=== PATIENT | male | born 1965 | race Caucasian/White ===

== ENCOUNTER 2017-07-27 13:07 | Inpatient (IN) | payer OTHER, SELFPAY ==
[2017-07-27] VITALS (13 sets, daily range): BP systolic 162–197; BP diastolic 90–133; PULSE 62–87; RESP 14–22; TEMP 36.6–37; O2SAT 94–98; BMI 48.2; BMI 48.3; BMI 47.9
--- NOTE | 2017-07-27 13:43 | EKG12_ITS ---
Test Reason : NEURO S
--- NOTE | 2017-07-27 13:43 | CT_ITS ---
STUDY: CT BRAIN WITHOUT CONTRAST REASON FOR EXAM: Male, 52 years old. Slurred speech. Right facial redness. RADIATION DOSAGE (If Supplied By Facility): CTDIvol = ( 44.99 ) mGy, DLP = ( 779.24 ) mGycm TECHNIQUE: Transaxial CT imaging of the brain was performed without administration of intravenous contrast material. Individualized dose optimization techniques were used for this CT. COMPARISON: Comparison is made with prior study dated December 09, 2014. FINDINGS: Normal soft tissue structures. Normal calvarium. Normal size ventricles and extra-axial spaces for the patient's age. Normal white matter tracts of the cerebral hemispheres. Normal basal ganglia and thalami. Normal brainstem. Normal cerebellum. There is no intracranial hemorrhage. There are no findings of an acute ischemic infarction. There is dolichoectasia of the basilar artery more prominent on the left side. Can't rule out a basilar tip aneurysm. Correlation with MR is recommended. Normal visualized paranasal sinuses. 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 MRI is recommended. Electronically Signed: Mu Butcher MD at 14:36 EDT Tel [phone], Service support ,
--- NOTE | 2017-07-27 13:43 | RAD_ITS ---
STUDY: X-RAY CHEST REASON FOR EXAM: Male, 52 years old. Slurred speech. Cough. TECHNIQUE: Single AP portable view of the chest. COMPARISON: Comparison is made with prior examination dated December 09, 2014. FINDINGS: EKG electrodes are seen. The lungs are clear and expanded. There is no demonstrated pleural abnormality. Normal size heart. Normal mediastinum and maegan. Normal visualized pulmonary arteries. There is atherosclerotic tortuosity of the aortic arch and descending thoracic aorta. Normal visualized thoracic spine. Normal visualized ribs, clavicles, and shoulders. There is no demonstrated abnormality of the visualized soft tissue structures of the upper abdomen. RAD/Chest 1 View IMPRESSION: No acute abnormality is seen. Electronically Signed: Mu Butcher MD at 14:41 EDT Tel [phone], Service support ,
--- NOTE | 2017-07-27 13:48 | NURSING ---
NO OLD EKGS
[2017-07-27 14:04] LABS: Absolute Lymphocyte Count 1.17 X10^3/ul (0.83-4.51); Absolute Neutrophil Count 4.6 X10^3/uL (2.0-7.7); Basophil# 0.02 X10^3/uL; Basophil% 0.3 % (0-1); Eosinophil# 0.52 X10^3/uL; Eosinophils% 7.8 % (0-5); Hematocrit 44.1 % (40-54); Hemoglobin 14.5 g/dl (13.0-16.5); Lymphocyte # 1.17 X10^3/ul (4.0); Lymphocyte % 17.5 % (19-41); Mean Corp Hgb Conc 32.9 g/gl (32-36); Mean Corpuscular Hgb 28.5 pg (27.0-32.0); Mean Corpuscular Volume 86.6 fL (80-94); Mean Platelet Vol. 8.3 fl (6.2-12.0); Neutrophil # 4.58 X10^3/uL (2.7-7.7); Neutrophil % 68.4 % (47-70); Platelet Count 212 K/mm3 (150-450); RBC Distribution Width CV 13.5 % (11.6-14.6); RBC Distribution Width SD 42.6 fl (35.1-43.9); Red Blood Count 5.09 M/mm3 (4.6-6.2); White Blood Count 6.7 K/mm3 (4.4-11.0)
[2017-07-27 14:05] LABS: POSITIVE COUNT NO; POSITIVE DIFFERENTIAL NO; POSITIVE MORPHOLOGY NO
[2017-07-27 14:11] LABS: Prothrombin Time (Protime)PT. 12.9 SECONDS (11.7-14.9)
[2017-07-27 14:12] LABS: Partial Thromboplast Time 30.9 Seconds (24.1-36.2)
[2017-07-27 14:21] LABS: Anion Gap 7 (5-15); BUN 15 mg/dL (7-18); BUN/Creat Ratio 18.5 RATIO (10-20); Calcium,Total 7.8 mg/dL (8.5-10.1); Chloride 107 mmol/L (98-107); Creatinine, Serum 0.81 mg/dL (0.70-1.30); EST Glomerular Filtration Rate 107 mL/min (>60); Est Glom Filt Rate - Afr Amer 129 mL/min (>60); Estimated Creatinine Clearance 94.91 ml/min; Glucose 173 mg/dL (74-106); Potassium 3.7 mmol/L (3.5-5.1); Sodium Level 142 mmol/L (136-145)
--- NOTE | 2017-07-27 14:56 | NURSING ---
DR QUINTERO PAGED
--- NOTE | 2017-07-27 15:28 | ED.DCSUM_ITS ---
- ER Visit Summary Date of Service: 07/27/17 Chief Complaint: Slurred speech History of Present Illness: The patient is a 52 M who presents with slurred speech. He initially noticed it about 6 hours prior to presentation. His and stated that he also appeared flushed and that his eyes were bloodshot he complains of feeling dizzy and off-balance. No near syncope. No weakness numbness or tingling. He complains of mild headache. No fevers no vomiting. Physical Examination: Afebrile vitals are notable for blood pressure 196/133 Moist mucous membranes Heart regular rate and rhythm Lungs are clear Abdomen soft NIH stroke scale is 1 for dysarthria no lateralizing neurological deficits Alert and oriented Test Results: EKG shows normal sinus rhythm at a rate of 81. CBC BMP unremarkable. Troponin negative. INR normal. Chest x-ray shows no acute abnormality. 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 Emergency Department Course and Treatment: On reevaluation patient continues to have dysarthria but denies any pain. He is resting comfortably. I did speak to neurology regarding his CT findings. It is recommended that the patient undergo further workup including MRI. The patient's symptoms are not suggestive of subarachnoid hemorrhage. He was discussed with the hospitalist will be admitted. Treatment Plan: [] Disposition: Admit Impression: Slurred speech Dizziness This note was generated with [employer] dictation software. It may contain incorrect words, spelling, and punctuation that were not noted in review of the chart prior to signing ED Disposition - Plan for ED Patient: Chief Complaint: Neuro S/Sx Referrals: Thais Fox MD [Primary Care Provider] -
[2017-07-27] MEDS: Labetalol 100 MG/20 ML Vial 20 MG IV (15:47)
--- NOTE | 2017-07-27 15:57 | PCM.HP.STD ---
Problem List (1) CVA (cerebral vascular accident) Status: Acute (2) Hypertension Status: Chronic (3) Morbid obesity with BMI of 45.0-49.9, adult Status: Chronic (4) Sleep apnea Status: Chronic Comment: On BiPAP at night 04/04 (5) Coronary artery disease Status: Chronic Comment: Status post PTCA and stents ?4, last in 2011 History of Present Illness Date of Admission: 07/27/17 Chief Complaint: slurred speech The patient is a 52 year old M who is normal state of health up until last evening where he was experiencing a right-sided headache with the ear pain and felt that his legs were wobbly. This morning he awoke with slurred speech that his describes as speech that she would anticipate if the patient were on an all night salazar. Of note, patient has not consumed alcohol in several years. Patient's speech has gotten better but still slurred according to his . Patient's stated weakness in the leg is resolved. Patient still does have the headache is right jaw and ear but improved. Never had any symptoms like this before. Presented to the emergency room and underwent a head CT that showed no acute process. Patient was concern for stroke but only had an NIH score of 1 and his time of onset of symptoms was unknown so patient was not a candidate for TPA. [] Past Medical History Past Medical History (Chronic Problems): Chronic Problems Hypertension (Chronic) Morbid obesity with BMI of 45.0-49.9, adult (Chronic) Sleep apnea (Chronic) On BiPAP at night 04/04 Coronary artery disease (Chronic) Status post PTCA and stents ?4, last in 2011 Allergies abciximab [From Reopro] Allergy (Verified 07/27/17 13:11) SEVERE THROMBOCYTOPENIA Home Medications: Ambulatory Orders Medication Instructions Recorded Amlodipine [Norvasc] 10 mg PO BID 07/27/17 Metoprolol Tartrate [Lopressor 100 mg PO BID 07/27/17 (Beta Jaleel)] Smoking Status: Former smoker Tobacco Use: Cigarettes - *Family History Maternal History Items: No pertinent history, - - No stroke Review of Systems Constitutional: Denies: Chills, Fever, Weight Change Eyes: Reports: - - glasses. Denies: Blurred vision, Double vision HEENT: Denies: Head Aches, Sinus Congestion, Sinus Drainage Cardiovascular: Denies: Chest Pain, Palpitations Respiratory: Denies: Cough, Shortness of breath at rest, Sputum production Gastrointestinal: Denies: Abdominal Pain, Nausea, Vomiting Genitourinary: Denies: Dysuria Musculoskeletal: Denies: Joint Pain, Joint Tenderness Skin: Denies: Rash, Wounds Neurological: Reports: Slurred speech. Denies: Focal weakness, Numbness, Tingling Psychiatric: Denies: Anxiety, Depression Endocrine: Denies: Change in Body Habitus, Heat/ Cold Intolerance Hematologic/ Lymphatic: Denies: Easy Bruising, Easy Bleeding, Hx of blood clot VTE Information - Inpt Only VTE Present on Admission: No VTE Pharm Prophylaxis ordered?: Yes Patient Problems: Active and Suspected Problems CVA (cerebral vascular accident) (Acute) - Physical Exam General: Alert, Cooperative, No apparent distress HEENT: Atraumatic, PERRLA, EOMI, Normocephalic Oral: Moist Mucosa, No Gingival or Mucosal Lesions/ Ulcerations Neck: No Nodes, Thyroid Normal Size and Texture Lungs: Clear to auscultation, Normal air movement, No rhonchi, No wheeze Cardiovascular: Regular rate, Regular Rhythm, Normal S1, Normal S2, No murmurs Abdomen: Bowel Sounds Present, Soft, Non Tender, Non-Distended, No Hepato-splenomegaly Extremities: No edema, No Calf Tenderness Skin: No rashes, No breakdown Musculoskeletal: No Tenderness to Palpation of Joints or Extremities, No Muscle Wasting Neurological: Cranial nerves II-XII grossly intact, Deep Tendon Reflexes 2+/4 and Symmetrical, Neuro grossly intact, Motor Exam 5/5 strength throughout, Muscle tone normal, Sensory exam intact to light touch and pain, Coordination normal Psych/Mental Status: Normal Affect, Appropriate Vital Signs Temp Pulse Resp BP Pulse Ox 36.9 C 69 16 189/121 H 97 07/27/17 13:08 07/27/17 15:50 07/27/17 15:50 07/27/17 15:50 07/27/17 15:50 Oxygen Delivery Method Room Air Weight: 131.542 kg Body Mass Index (BMI) 48.2 Finger Stick Blood Glucose 173 Laboratory Tests Past 24 Hrs 07/27/17 07/27/17 07/27/17 13:57 13:57 13:57 WBC 6.7 RBC 5.09 Hgb 14.5 Hct 44.1 MCV 86.6 MCH 28.5 MCHC 32.9 RDW 13.5 RDW Differential 42.6 Plt Count 212 MPV 8.3 Immature Gran % (Auto) 0.000 Neut % (Auto) 68.4 Lymph % (Auto) 17.5 L [place] % (Auto) 6.0 Eos % (Auto) 7.8 H Baso % (Auto) 0.3 Absolute Neuts (auto) 4.6 Absolute Lymphs (auto) 1.17 Total Counted Not Reportable PT 12.9 INR 1.0 APTT 30.9 Sodium 142 Potassium 3.7 Chloride 107 Carbon Dioxide 28.0 Anion Gap 7 BUN 15 Creatinine 0.81 Estim Creat Clear Calc 94.91 Est GFR (MDRD) Af Amer 129 Est GFR (MDRD) Non-Af 107 BUN/Creatinine Ratio 18.5 Glucose 173 H Calcium 7.8 L Troponin I < 0.02 Clinical Impression(s) from Imaging Studies Brain CT 07/27/17 13:43 IMPRESSION: 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 MRI is recommended. Electronically Signed: Mu Butcher MD at 14:36 EDT Tel [phone], Service support , Chest X-Ray 07/27/17 13:43 IMPRESSION: No acute abnormality is seen. Electronically Signed: Mu Butcher MD at 14:41 EDT Tel [phone], Service support , EEG reviewed and showed normal sinus rhythm without any acute changes. Assessment/Plan Active and Suspected Problems CVA (cerebral vascular accident) (Acute) 1. Possible cerebrovascular accident With risk factors given his symptoms. Patient's NIH is only one for slurred speech but his speech is very intelligible at this time Will start the patient on aspirin Complete a stroke workup with an MRI of the brain, MRA of the head neck, echocardiogram, physical and occupational therapy evaluate and treat, bedside swallow evaluation, and neurology consultation. The possibilities for his symptoms could be an atypical migraine but given patient's lack of history of migraines I would find this to be less likely. 2. Coronary artery disease: Continue with metoprolol 3. DVT prophylaxis with Lovenox Code Visit Inpatient E&M: 06152 Init Hosp L3
--- NOTE | 2017-07-27 16:03 | HP.PCM_ITS ---
Problem List (1) CVA (cerebral vascular accident) Status: Acute (2) Hypertension Status: Chronic (3) Morbid obesity with BMI of 45.0-49.9, adult Status: Chronic (4) Sleep apnea Status: Chronic Comment: On BiPAP at night 04/04 (5) Coronary artery disease Status: Chronic Comment: Status post PTCA and stents ?4, last in 2011 History of Present Illness Date of Admission: 07/27/17 Chief Complaint: slurred speech The patient is a 52 year old M who is normal state of health up until last evening where he was experiencing a right-sided headache with the ear pain and felt that his legs were wobbly. This morning he awoke with slurred speech that his describes as speech that she would anticipate if the patient were on an all night salazar. Of note, patient has not consumed alcohol in several years. Patient's speech has gotten better but still slurred according to his . Patient's stated weakness in the leg is resolved. Patient still does have the headache is right jaw and ear but improved. Never had any symptoms like this before. Presented to the emergency room and underwent a head CT that showed no acute process. Patient was concern for stroke but only had an NIH score of 1 and his time of onset of symptoms was unknown so patient was not a candidate for TPA. [] Past Medical History Past Medical History (Chronic Problems): Chronic Problems Hypertension (Chronic) Morbid obesity with BMI of 45.0-49.9, adult (Chronic) Sleep apnea (Chronic) On BiPAP at night 04/04 Coronary artery disease (Chronic) Status post PTCA and stents ?4, last in 2011 Allergies abciximab [From Reopro] Allergy (Verified 07/27/17 13:11) SEVERE THROMBOCYTOPENIA Home Medications: Ambulatory Orders Medication Instructions Recorded Amlodipine [Norvasc] 10 mg PO BID 07/27/17 Metoprolol Tartrate [Lopressor 100 mg PO BID 07/27/17 (Beta Jaleel)] Smoking Status: Former smoker Tobacco Use: Cigarettes - *Family History Maternal History Items: No pertinent history, - - No stroke Review of Systems Constitutional: Denies: Chills, Fever, Weight Change Eyes: Reports: - - glasses. Denies: Blurred vision, Double vision HEENT: Denies: Head Aches, Sinus Congestion, Sinus Drainage Cardiovascular: Denies: Chest Pain, Palpitations Respiratory: Denies: Cough, Shortness of breath at rest, Sputum production Gastrointestinal: Denies: Abdominal Pain, Nausea, Vomiting Genitourinary: Denies: Dysuria Musculoskeletal: Denies: Joint Pain, Joint Tenderness Skin: Denies: Rash, Wounds Neurological: Reports: Slurred speech. Denies: Focal weakness, Numbness, Tingling Psychiatric: Denies: Anxiety, Depression Endocrine: Denies: Change in Body Habitus, Heat/ Cold Intolerance Hematologic/ Lymphatic: Denies: Easy Bruising, Easy Bleeding, Hx of blood clot VTE Information - Inpt Only VTE Present on Admission: No VTE Pharm Prophylaxis ordered?: Yes Patient Problems: Active and Suspected Problems CVA (cerebral vascular accident) (Acute) - Physical Exam General: Alert, Cooperative, No apparent distress HEENT: Atraumatic, PERRLA, EOMI, Normocephalic Oral: Moist Mucosa, No Gingival or Mucosal Lesions/ Ulcerations Neck: No Nodes, Thyroid Normal Size and Texture Lungs: Clear to auscultation, Normal air movement, No rhonchi, No wheeze Cardiovascular: Regular rate, Regular Rhythm, Normal S1, Normal S2, No murmurs Abdomen: Bowel Sounds Present, Soft, Non Tender, Non-Distended, No Hepato- splenomegaly Extremities: No edema, No Calf Tenderness Skin: No rashes, No breakdown Musculoskeletal: No Tenderness to Palpation of Joints or Extremities, No Muscle Wasting Neurological: Cranial nerves II-XII grossly intact, Deep Tendon Reflexes 2+/4 and Symmetrical, Neuro grossly intact, Motor Exam 5/5 strength throughout, Muscle tone normal, Sensory exam intact to light touch and pain, Coordination normal Psych/Mental Status: Normal Affect, Appropriate Vital Signs Temp Pulse Resp BP Pulse Ox 36.9 C 69 16 189/121 H 97 07/27/17 13:08 07/27/17 15:50 07/27/17 15:50 07/27/17 15:50 07/27/17 15:50 Oxygen Delivery Method Room Air Weight: 131.542 kg Body Mass Index (BMI) 48.2 Finger Stick Blood Glucose 173 Laboratory Tests Past 24 Hrs 07/27/17 07/27/17 07/27/17 13:57 13:57 13:57 WBC 6.7 RBC 5.09 Hgb 14.5 Hct 44.1 MCV 86.6 MCH 28.5 MCHC 32.9 RDW 13.5 RDW Differential 42.6 Plt Count 212 MPV 8.3 Immature Gran % (Auto) 0.000 Neut % (Auto) 68.4 Lymph % (Auto) 17.5 L [place] % (Auto) 6.0 Eos % (Auto) 7.8 H Baso % (Auto) 0.3 Absolute Neuts (auto) 4.6 Absolute Lymphs (auto) 1.17 Total Counted Not Reportable PT 12.9 INR 1.0 APTT 30.9 Sodium 142 Potassium 3.7 Chloride 107 Carbon Dioxide 28.0 Anion Gap 7 BUN 15 Creatinine 0.81 Estim Creat Clear Calc 94.91 Est GFR (MDRD) Af Amer 129 Est GFR (MDRD) Non-Af 107 BUN/Creatinine Ratio 18.5 Glucose 173 H Calcium 7.8 L Troponin I < 0.02 Clinical Impression(s) from Imaging Studies Brain CT 07/27/17 13:43 IMPRESSION: 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 MRI is recommended. Electronically Signed: Mu Butcher MD at 14:36 EDT Tel [phone], Service support , Chest X-Ray 07/27/17 13:43 IMPRESSION: No acute abnormality is seen. Electronically Signed: Mu Butcher MD at 14:41 EDT Tel [phone], Service support , EEG reviewed and showed normal sinus rhythm without any acute changes. Assessment/Plan Active and Suspected Problems CVA (cerebral vascular accident) (Acute) 1. Possible cerebrovascular accident * With risk factors given his symptoms. * Patient's NIH is only one for slurred speech but his speech is very intelligible at this time * Will start the patient on aspirin * Complete a stroke workup with an MRI of the brain, MRA of the head neck, echocardiogram, physical and occupational therapy evaluate and treat, bedside swallow evaluation, and neurology consultation. * The possibilities for his symptoms could be an atypical migraine but given patient's lack of history of migraines I would find this to be less likely. 2. Coronary artery disease: * Continue with metoprolol 3. DVT prophylaxis with Lovenox Code Visit Inpatient E&M: 28388 Init Hosp L3
--- NOTE | 2017-07-27 16:33 | ECHOD_ITS ---
Reason For Study: TIA/CVA Procedure This was a 2D Doppler, Color Flow transthoracic echocardiogram. The study was technically difficult. due to body habitus. Exam performed portable in patient room. Left Ventricle Normal LV size. Left ventricular systolic function is normal. The estimated ejection fraction is 60 %. No evidence for diastolic dysfunction. No regional wall motion abnormalities noted. Right Ventricle Normal RV size. Normal systolic function. Atria The left atrium is mildly enlarged. The right atrium is mildly enlarged. Bubble contrast study negative for right to left interatrial shunt. Mitral Valve Normal mitral valve. Tricuspid Valve Normal tricuspid valve. Mild (1+) tricuspid valve insufficiency. Pulmonary artery systolic pressure is 33 mmHg. Aortic Valve Trisinus/trileaflet aortic valve. Pulmonic Valve Normal pulmonic valve. Great Vessels Normal aortic root. The pulmonary artery is normal size. Pericardium/Pleural No pericardial effusion. Medication Performed a rapid injection of agitated mix of 9 cc saline and 1cc air to assess for atrial septal defect. MMode/2D Measurements & Calculations LVIDd: 5.6 cm IVSd: 1.5 cm Ao root diam: 3.4 cm LVIDs: 3.5 cm LVPWd: 1.6 cm LA dimension: 4.3 cm RVDd: 4.1 cm FS: 37.9 % LAV(MOD-bp): 63.6 ml LAV(MOD-bp) Indexed: 27.5 ml/m2 LA A4 area: 21.0 cm2 RA A4 area: 21.6 cm2 LAV(MOD-sp2): 61.2 ml LAV(MOD-sp4): 60.7 ml Doppler Measurements & Calculations MV E max fazal: 101.5 cm/sec Lat Peak E' Fazal: 13.2 cm/sec Med Peak E' Fazal: 5.8 cm/sec MV A max fazal: 73.3 cm/sec E/E' lat: 7.7 E/E' med: 17.6 MV E/A: 1.4 Ao V2 max: 140.5 cm/sec LV V1 max: 107.8 cm/sec PA V2 max: 91.2 cm/sec Ao max P.9 mmHg LV V1 max P.6 mmHg TR max fazal: 265.8 cm/sec TR max P.3 mmHg Interpretation Summary Normal LV size. Left ventricular systolic function is normal. The estimated ejection fraction is 60 %. No evidence for diastolic dysfunction. Bubble contrast study negative for right to left interatrial shunt. Ordering Physician: Sudhir Little Referring Physician: Thais Fox Performed By: Neetu Calles, JOHANACS, RVT
--- NOTE | 2017-07-27 17:34 | CT_ITS ---
STUDY: CT BRAIN WITHOUT CONTRAST REASON FOR EXAM: Male, 52 years old. CVA, slurred speech, nausea and vomiting RADIATION DOSAGE (If Supplied By Facility): CTDIvol = ( 44.99 ) mGy, DLP = ( 863.60 ) mGycm TECHNIQUE: Transaxial CT imaging of the brain was performed without administration of intravenous contrast material. Individualized dose optimization techniques were used for this CT. COMPARISON: July 27, 2017 2:05 PM FINDINGS: Normal soft tissue structures. Normal calvarium. Vertebrobasilar dolichoectasia consistent with systemic hypertension. Cannot definitively exclude basilar tip aneurysm Normal size ventricles and extra-axial spaces for the patient's age. Normal white matter tracts of the cerebral hemispheres. Normal basal ganglia and thalami. Subtle hypoattenuation within the casandra possibly representing acute ischemic changes. MRI recommended for further evaluation. Normal cerebellum. There is no intracranial hemorrhage. There are no findings of an acute ischemic infarction. Small mucous retention cyst in left maxillary sinus.. The hypoattenuation in the casandra is new finding since earlier exam CT/Brain/Head without Contrast IMPRESSION: Vertebrobasilar dolichoectasia consistent with systemic hypertension No evidence for acute bleed. There is subtle hypoattenuation within the casandra suggesting evolving infarct. MRI recommended for further evaluation. N.B. : The above information has been verbally conveyed by Mushtaq Banegas MD to YARELIS FORRESTER, Referring Physician, on 07/27/2017 18:38:37 (ET). Electronically Signed: Mushtaq Banegas MD at 18:37 EDT , Service support , N.B. : The above information has been verbally conveyed by Mushtaq Banegas MD to YARELIS FORRESTER, Referring Physician, on 07/27/2017 18:38:37 (ET).
--- NOTE | 2017-07-27 17:48 | CT_ITS ---
STUDY: CTA OF THE BRAIN REASON FOR EXAM: Male, 52 years old. CVA RADIATION DOSAGE (If Supplied By Facility): CTDIvol = ( 24.41 ) mGy, DLP = ( 938.76 ) mGycm TECHNIQUE: CT angiography was performed with a multi-detector CT scanner. Data acquisition was obtained from the skull base through the vertex following intravenous administration of ml of . MIP images were reconstructed from the axial data set. Post-processing of the angiographic images was performed, with multiplanar reformation and 3D reconstruction. Individualized dose optimization techniques were used for this CT. COMPARISON: None. FINDINGS: Normal bilateral petrous carotid arteries. Normal right cavernous carotid artery with a normal supraclinoid bifurcation. Normal left cavernous carotid artery with a normal supraclinoid bifurcation. Normal right A1 segments of the anterior cerebral artery. Normal left A1 segments of the anterior cerebral artery. Normal intact anterior communicating artery (ACOM). Normal bilateral A2 segments of the anterior cerebral arteries. Normal right M1 and M2 segments of the middle cerebral arteries, with a normal M1 bifurcation. Normal left M1 and M2 segments of the middle cerebral arteries, with a normal M1 bifurcation. Posterior communicating arteries are not visualized consistent with normal developmental variant. Vertebral basilar dolichoectasia consistent with systemic hypertension. The visualized bilateral superior cerebellar (SCA) arteries are normal. Normal bilateral P1, P2 and visualized P3 segments of the posterior cerebral arteries. There is no demonstrated aneurysm of the [place]. There is no demonstrated abnormality of the visualized brain. IMPRESSION: Normal [place] without a demonstrated aneurysm or hemodynamically significant stenosis. Electronically Signed: Mushtaq Banegas MD at 18:28 EDT , Service support , Stroke CTA of the neck CTA of the neck INDICATION: Stroke TECHNIQUE: CTA of the neck was performed scanning in a dynamically enhanced fashion in the axial plane from the cervicothoracic junction to the base of the skull followed by sagittal and coronal reconstructions. Radiographic technique was optimized to limit patient radiation dose. Findings. There is minor soft plaque seen within the common carotids carotid bulbs and internal carotids bilaterally without evidence for hemodynamically significant stenosis. The vertebrals are codominant however there is vertebrobasilar dolichoectasia seen distally which may be due to systemic hypertension. CT/CTA Neck W/WO Contrast IMPRESSION: Minor atherosclerotic disease without evidence for hemodynamically significant stenosis utilizing NASCET criteria. Electronically Signed: Mushtaq Banegas MD at 18:32 EDT , Service support ,
--- NOTE | 2017-07-27 17:48 | CT_ITS ---
STUDY: CTA OF THE BRAIN REASON FOR EXAM: Male, 52 years old. CVA RADIATION DOSAGE (If Supplied By Facility): CTDIvol = ( 24.41 ) mGy, DLP = ( 938.76 ) mGycm TECHNIQUE: CT angiography was performed with a multi-detector CT scanner. Data acquisition was obtained from the skull base through the vertex following intravenous administration of ml of . MIP images were reconstructed from the axial data set. Post-processing of the angiographic images was performed, with multiplanar reformation and 3D reconstruction. Individualized dose optimization techniques were used for this CT. COMPARISON: None. FINDINGS: Normal bilateral petrous carotid arteries. Normal right cavernous carotid artery with a normal supraclinoid bifurcation. Normal left cavernous carotid artery with a normal supraclinoid bifurcation. Normal right A1 segments of the anterior cerebral artery. Normal left A1 segments of the anterior cerebral artery. Normal intact anterior communicating artery (ACOM). Normal bilateral A2 segments of the anterior cerebral arteries. Normal right M1 and M2 segments of the middle cerebral arteries, with a normal M1 bifurcation. Normal left M1 and M2 segments of the middle cerebral arteries, with a normal M1 bifurcation. Posterior communicating arteries are not visualized consistent with normal developmental variant. Vertebral basilar dolichoectasia consistent with systemic hypertension. The visualized bilateral superior cerebellar (SCA) arteries are normal. Normal bilateral P1, P2 and visualized P3 segments of the posterior cerebral arteries. There is no demonstrated aneurysm of the [place]. There is no demonstrated abnormality of the visualized brain. IMPRESSION: Normal [place] without a demonstrated aneurysm or hemodynamically significant stenosis. Electronically Signed: Mushtaq Banegas MD at 18:28 EDT , Service support , Stroke CTA of the neck CTA of the neck INDICATION: Stroke TECHNIQUE: CTA of the neck was performed scanning in a dynamically enhanced fashion in the axial plane from the cervicothoracic junction to the base of the skull followed by sagittal and coronal reconstructions. Radiographic technique was optimized to limit patient radiation dose. Findings. There is minor soft plaque seen within the common carotids carotid bulbs and internal carotids bilaterally without evidence for hemodynamically significant stenosis. The vertebrals are codominant however there is vertebrobasilar dolichoectasia seen distally which may be due to systemic hypertension. CT/CTA Head W/WO Contrast IMPRESSION: Minor atherosclerotic disease without evidence for hemodynamically significant stenosis utilizing NASCET criteria. Electronically Signed: Mushtaq Banegas MD at 18:32 EDT , Service support ,
[2017-07-27] MEDS: 0.9% Normal Saline 1,000 ML 100 ML IV (20:56)
[2017-07-27] MEDS: Ondansetron 4 MG/2 ML Vial IV (20:56)
[2017-07-27] MEDS: 0.9% NaCl Peripheral Flush Adult/Peds IV (20:57)
[2017-07-27] MEDS: Metoprolol Tartrate 100 MG Tablet PO (23:07)
--- NOTE | 2017-07-27 23:11 | NURSING ---
Pt. able to take PO meds at this time and ASA 325 mg given at this time, Unable to scan due to med not given earlier and now discontinued.
[2017-07-28] VITALS (15 sets, daily range): BP systolic 122–182; BP diastolic 76–100; PULSE 53–74; RESP 16–18; TEMP 36.6–37.1; O2SAT 95–97; BMI 47.9
[2017-07-28] MEDS: 0.9% Normal Saline 1,000 ML 100 ML IV ×2 (05:54→16:24)
[2017-07-28] MEDS: Enoxaparin 40 MG/0.4 ML Syringe SC (05:54)
[2017-07-28 07:21] LABS: Cholesterol 186 mg/dL (200); High Density Lipoprotein 28 mg/dL; Triglycerides 179 mg/dL; Very Low Density Lipoprotein 36 mg/dL (5-40)
--- NOTE | 2017-07-28 07:53 | MRI_ITS ---
STUDY: MRI BRAIN WITH AND WITHOUT CONTRAST REASON FOR EXAM: Male, 52 years old. Leg weakness, right-sided headache, slurred speech and right arm tingling. TECHNIQUE: Standardized multiplanar fat and water weighted pulse sequences were obtained. 10 ml of Gadavist contrast material was administered intravenously for the contrast portion of the examination. Several images are limited by patient motion. COMPARISON: CT of the head dated July 27, 2017. FINDINGS: Normal size of the ventricles and extra-axial spaces for the patient's age. Normal white matter tracts of the supratentorial brain. There is restricted diffusion present in the left paramedian casandra, anterior corpus callosum and left paramedian posterior medulla consistent with an acute infarct. There is apparent restricted diffusion within the basal ganglia. This possible this represents sequela of ischemia. This is best seen on the ADC map and diffusion weighted imaging series 901. Normal T2* images of the brain without demonstrated susceptibility artifact. There is no demonstrated hemosiderin stain. The basal ganglia have a grossly normal appearance otherwise. Normal thalami. There is no extra-axial fluid accumulation. Normal flow voids within the major intracranial circulation suggesting patency by spin echo criteria. Normal venous enhancement. There is no enhancing intra-axial or extra-axial abnormality. Normal sella turcica, pituitary gland, infundibular stalk, optic chiasm and hypothalamus. Normal tectal plate and pineal gland. The brainstem otherwise has a normal appearance. Normal cerebellum. Normal basal cisterns. Normal bilateral temporal bones. Normal bilateral internal auditory canals. No demonstrated orbital abnormality, within the constraints of a routine brain study. There is left maxillary mucous retention cyst and/or polyp. Normal calvarium and skull base. Normal visualized soft tissue structures. Normal visualized upper cervical spine. MRI/Brain W/WO Contrast IMPRESSION: 1. Technically limited MRI due to patient motion. 2. Acute infarcts in the left paramedian casandra and medulla. 3. There is also apparent restricted diffusion the basal ganglia,. This pattern is somewhat unusual for acute infarct but other etiologies for cytotoxic edema are possible as well. There is also restricted diffusion within the anterior corpus callosum related to cytotoxic edema not necessarily related to ischemia. N.B. : The above information has been verbally conveyed by Ana Cristina Francisco MD to Johnny Nguyen on 07/28/2017 10:26:42 (ET). Electronically Signed: Ana Cristina Francisco MD at 10:22 EDT , Service support , N.B. : The above information has been verbally conveyed by Ana Cristina Francisco MD to Johnny Nguyen on 07/28/2017 10:26:42 (ET).
[2017-07-28] MEDS: Aspirin 81 MG TAB.CHEW PO (09:54)
--- NOTE | 2017-07-28 10:07 | PCM.CONS.GEN ---
Reason for Consult Date of Consultation: 07/28/17 Reason for Consultation: CVA History of Present Illness: The patient is a 52 year old LEFT handed white male who presented yesterday with slurred speech and balance trouble, also reports blood shot eyes. first sign of abnormality however was tues night, 2 nights ago described as right ear pain which is persistent, and weak legs. last night his speech was noted to worsen. denies pain. diagnosed with may, but hasnt used his bipap for several months. takes asa 81 mg daily at home. takes his bp meds daily but notes his bps when checked at [facility] twice a month are usually 160 systolic. per admit h&p:The patient is a 52 year old M who is normal state of health up until last evening where he was experiencing a right-sided headache with the ear pain and felt that his legs were wobbly. This morning he awoke with slurred speech that his describes as speech that she would anticipate if the patient were on an all night salazar. Of note, patient has not consumed alcohol in several years. Patient's speech has gotten better but still slurred according to his . Patient's stated weakness in the leg is resolved. Patient still does have the headache is right jaw and ear but improved. Never had any symptoms like this before. Presented to the emergency room and underwent a head CT that showed no acute process. Patient was concern for stroke but only had an NIH score of 1 and his time of onset of symptoms was unknown so patient was not a candidate for TPA Past Medical History Past Medical History (Chronic Problems): Chronic Problems Hypertension (Chronic) Morbid obesity with BMI of 45.0-49.9, adult (Chronic) Sleep apnea (Chronic) On BiPAP at night 04/04 Coronary artery disease (Chronic) Status post PTCA and stents ?4, last in 2011 Allergies abciximab [From Reopro] Allergy (Verified 07/27/17 13:11) SEVERE THROMBOCYTOPENIA Home Medications: Ambulatory Orders Medication Instructions Recorded Amlodipine [Norvasc] 10 mg PO DAILY 07/27/17 Metoprolol Tartrate [Lopressor 100 mg PO BID 07/27/17 (Beta Jaleel)] Lives: Spouse/ Significant Other Smoking Status: Former smoker - one year Tobacco Use: Cigarettes Alcohol: Rare - *Family History Maternal History Items: No pertinent history, - - No stroke Review of Systems Constitutional: Denies: Chills, Fever, Weight Change HEENT: Denies: Head Aches, Sinus Congestion, Sinus Drainage Cardiovascular: Denies: Chest Pain, Palpitations Respiratory: Denies: Cough, Shortness of breath at rest, Sputum production Gastrointestinal: Denies: Abdominal Pain, Nausea, Vomiting Genitourinary: Denies: Dysuria Musculoskeletal: Denies: Joint Pain, Joint Tenderness Skin: Denies: Rash, Wounds Neurological: Denies: Numbness, Tingling, Focal weakness Psychiatric: Denies: Anxiety, Depression, Homicidal Ideations, Suicidal Ideations Hematologic/ Lymphatic: Denies: Easy Bruising, Easy Bleeding Patient Problems: Active and Suspected Problems CVA (cerebral vascular accident) (Acute) Objective: On examination he is awake and alert, oriented ?3 Pupils are equal, gaze is disconjugate with a right medial rectus palsy There is a mild right central 7 Language is intact but there is significant dysarthria Left side is normal Right side has mild weakness at 4+/5 in addition he has significant discoordination his right upper extremity and right lower extremity - Physical Exam Vital Signs Temp Pulse Resp BP Pulse Ox 36.9 C 54 L 16 157/80 H 95 07/28/17 09:50 07/28/17 09:50 07/28/17 09:50 07/28/17 09:50 07/28/17 09:50 Oxygen Delivery Method Room Air Weight: 130.8 kg Body Mass Index (BMI) 47.9 Intake and Output for Last 24 Hours 07/26/17 07/27/17 07/28/17 23:59 23:59 23:59 Intake Total 180 / 180 1134 / 1134 Balance 180 / 180 1134 / 1134 Laboratory Tests Past 24 Hrs 07/28/17 06:10 Triglycerides 179 Cholesterol 186 LDL Cholesterol 122 VLDL Cholesterol 36 HDL Cholesterol 28 L Current Medications Generic Name Dose Route Start Last Admin Trade Name Freq PRN Reason Stop Dose Admin Amlodipine Besylate 10 mg 07/27/17 22:00 Norvasc PO BID [facility] Aspirin 81 mg 07/28/17 08:00 07/28/17 09:54 Aspirin, Baby PO 81 mg DAILY@0800 [facility] Administration Enoxaparin Sodium 40 mg 07/28/17 06:00 07/28/17 05:54 Lovenox SC 40 mg DAILY@0600 [facility] Administration Sodium Chloride 250 mls @ 15 mls/hr 07/27/17 16:18 IV .[id number] PRN SALINE FLUSH Sodium Chloride 1,000 mls @ 100 mls/hr 07/27/17 20:15 07/28/17 05:54 IV 100 mls/hr .Q10H [facility] Administration Magnesium Hydroxide 30 ml 07/27/17 16:33 Milk Of Magnesia PO DAILY PRN Constipation Metoprolol Tartrate 100 mg 07/27/17 22:00 07/28/17 09:54 Lopressor (Beta Jaleel) PO Not Given BID [facility] Ondansetron HCl 4 mg 07/27/17 20:14 07/27/17 20:56 Zofran IV 4 mg Q6H PRN PRN Administration nausea, emesis Promethazine HCl 6.25 mg 07/27/17 20:14 Phenergan IV Q4H PRN PRN NAUSEA/VOMITING Sodium Chloride 5 - 30 ml 07/27/17 16:17 07/27/17 20:57 IV 10 ml UD PRN Administration SALINE FLUSH Current Home Med List Medication Instructions Recorded Confirmed Type Amlodipine [Norvasc] 10 mg PO DAILY 07/27/17 07/28/17 History Metoprolol Tartrate [Lopressor 100 mg PO BID 07/27/17 07/27/17 History (Beta Ajleel)] asa 81 mg daily mri reviewed, acute left pontine infarct cta shows ectatic basilar artery Assessment/Plan Active and Suspected Problems CVA (cerebral vascular accident) (Acute) impression: pontine (small vessel) infarct change asa to plavix when able to take po permissive htn outpt psg: last study 4yrs ago, but reports has failed multple therapies consider rehab eye patch
--- NOTE | 2017-07-28 10:23 | CON.PCM_ITS ---
Reason for Consult Date of Consultation: 07/28/17 Reason for Consultation: CVA History of Present Illness: The patient is a 52 year old LEFT handed white male who presented yesterday with slurred speech and balance trouble, also reports blood shot eyes. first sign of abnormality however was tues night, 2 nights ago described as right ear pain which is persistent, and weak legs. last night his speech was noted to worsen. denies pain. diagnosed with may, but hasnt used his bipap for several months. takes asa 81 mg daily at home. takes his bp meds daily but notes his bps when checked at [facility] twice a month are usually 160 systolic. per admit h&p:The patient is a 52 year old M who is normal state of health up until last evening where he was experiencing a right-sided headache with the ear pain and felt that his legs were wobbly. This morning he awoke with slurred speech that his describes as speech that she would anticipate if the patient were on an all night salazar. Of note, patient has not consumed alcohol in several years. Patient's speech has gotten better but still slurred according to his . Patient's stated weakness in the leg is resolved. Patient still does have the headache is right jaw and ear but improved. Never had any symptoms like this before. Presented to the emergency room and underwent a head CT that showed no acute process. Patient was concern for stroke but only had an NIH score of 1 and his time of onset of symptoms was unknown so patient was not a candidate for TPA Past Medical History Past Medical History (Chronic Problems): Chronic Problems Hypertension (Chronic) Morbid obesity with BMI of 45.0-49.9, adult (Chronic) Sleep apnea (Chronic) On BiPAP at night 04/04 Coronary artery disease (Chronic) Status post PTCA and stents ?4, last in 2011 Allergies abciximab [From Reopro] Allergy (Verified 07/27/17 13:11) SEVERE THROMBOCYTOPENIA Home Medications: Ambulatory Orders Medication Instructions Recorded Amlodipine [Norvasc] 10 mg PO DAILY 07/27/17 Metoprolol Tartrate [Lopressor 100 mg PO BID 07/27/17 (Beta Jaleel)] Lives: Spouse/ Significant Other Smoking Status: Former smoker - one year Tobacco Use: Cigarettes Alcohol: Rare - *Family History Maternal History Items: No pertinent history, - - No stroke Review of Systems Constitutional: Denies: Chills, Fever, Weight Change HEENT: Denies: Head Aches, Sinus Congestion, Sinus Drainage Cardiovascular: Denies: Chest Pain, Palpitations Respiratory: Denies: Cough, Shortness of breath at rest, Sputum production Gastrointestinal: Denies: Abdominal Pain, Nausea, Vomiting Genitourinary: Denies: Dysuria Musculoskeletal: Denies: Joint Pain, Joint Tenderness Skin: Denies: Rash, Wounds Neurological: Denies: Numbness, Tingling, Focal weakness Psychiatric: Denies: Anxiety, Depression, Homicidal Ideations, Suicidal Ideations Hematologic/ Lymphatic: Denies: Easy Bruising, Easy Bleeding Patient Problems: Active and Suspected Problems CVA (cerebral vascular accident) (Acute) Objective: On examination he is awake and alert, oriented ?3 Pupils are equal, gaze is disconjugate with a right medial rectus palsy There is a mild right central 7 Language is intact but there is significant dysarthria Left side is normal Right side has mild weakness at 4+/5 in addition he has significant discoordination his right upper extremity and right lower extremity - Physical Exam Vital Signs Temp Pulse Resp BP Pulse Ox 36.9 C 54 L 16 157/80 H 95 07/28/17 09:50 07/28/17 09:50 07/28/17 09:50 07/28/17 09:50 07/28/17 09:50 Oxygen Delivery Method Room Air Weight: 130.8 kg Body Mass Index (BMI) 47.9 Intake and Output for Last 24 Hours 07/26/17 07/27/17 07/28/17 23:59 23:59 23:59 Intake Total 180 / 180 1134 / 1134 Balance 180 / 180 1134 / 1134 Laboratory Tests Past 24 Hrs 07/28/17 06:10 Triglycerides 179 Cholesterol 186 LDL Cholesterol 122 VLDL Cholesterol 36 HDL Cholesterol 28 L Current Medications Generic Name Dose Route Start Last Admin Trade Name Freq PRN Reason Stop Dose Admin Amlodipine Besylate 10 mg 07/27/17 22:00 Norvasc PO BID [facility] Aspirin 81 mg 07/28/17 08:00 07/28/17 09:54 Aspirin, Baby PO 81 mg DAILY@0800 [facility] Administration Enoxaparin Sodium 40 mg 07/28/17 06:00 07/28/17 05:54 Lovenox SC 40 mg DAILY@0600 [facility] Administration Sodium Chloride 250 mls @ 15 mls/hr 07/27/17 16:18 IV .[id number] PRN SALINE FLUSH Sodium Chloride 1,000 mls @ 100 mls/hr 07/27/17 20:15 07/28/17 05:54 IV 100 mls/hr .Q10H [facility] Administration Magnesium Hydroxide 30 ml 07/27/17 16:33 Milk Of Magnesia PO DAILY PRN Constipation Metoprolol Tartrate 100 mg 07/27/17 22:00 07/28/17 09:54 Lopressor (Beta Jaleel) PO Not Given BID [facility] Ondansetron HCl 4 mg 07/27/17 20:14 07/27/17 20:56 Zofran IV 4 mg Q6H PRN PRN Administration nausea, emesis Promethazine HCl 6.25 mg 07/27/17 20:14 Phenergan IV Q4H PRN PRN NAUSEA/VOMITING Sodium Chloride 5 - 30 ml 07/27/17 16:17 07/27/17 20:57 IV 10 ml UD PRN Administration SALINE FLUSH Current Home Med List Medication Instructions Recorded Confirmed Type Amlodipine [Norvasc] 10 mg PO DAILY 07/27/17 07/28/17 History Metoprolol Tartrate [Lopressor 100 mg PO BID 07/27/17 07/27/17 History (Beta Jaleel)] asa 81 mg daily mri reviewed, acute left pontine infarct cta shows ectatic basilar artery Assessment/Plan Active and Suspected Problems CVA (cerebral vascular accident) (Acute) impression: pontine (small vessel) infarct change asa to plavix when able to take po permissive htn outpt psg: last study 4yrs ago, but reports has failed multple therapies consider rehab eye patch
--- NOTE | 2017-07-28 11:20 | CASEMGMT ---
Dr Carter mentioned patient would be a good rehab candidate. FIDEL met with patient and his . Introduced self as well as role at [facility]. Patient is normally independent. He did use a cane for a little while. He manages his own meds, bathes himself etc. Discussed [facility] 4th floor rehab unit and they are interested in this. FIDEL told them we will await therapy evaluations. FIDEL then called Mari with the rehab unit and made a referral. She will start pre-cert once therapy sees him. Plan: 4th floor rehab unit pending therapy evaluations and insurance approval. Erica REDDY MSW
[2017-07-28] MEDS: Clopidogrel Bisulfate 75 MG Tablet PO (17:58)
--- NOTE | 2017-07-28 18:59 | NURSING ---
DR HONG UP ON FLOOR ASSESSING PATIENT. LEFT FACIAL DROOP, MADE AWARE OF NIH SCORE AND RIGHT ARM WEAK AT TIMES, STATES TO MONITOR
--- NOTE | 2017-07-28 20:16 | PCM.PROGNOTE ---
Patient Problems: Active and Suspected Problems CVA (cerebral vascular accident) (Acute) Subjective: Patient is doing about the same. He is c/o left ear pain, examination was unremarkable. - Physical Exam General: Oriented x3, Cooperative, - - Somewhat somnolent. HEENT: Atraumatic, Normocephalic, TM's Clear, - - Right eye deviate down and out. Oral: Moist Mucosa Neck: Supple, No JVD Lungs: Clear to auscultation, Normal air movement, No rhonchi, No wheeze, No rales Cardiovascular: Regular rate, Regular Rhythm, Normal S1, Normal S2, No murmurs, No Ectopic Activity Abdomen: Bowel Sounds Present, Soft, Non Tender, Non-Distended, Obese Extremities: No clubbing, No cyanosis, No edema Skin: No rashes, No breakdown Musculoskeletal: No Tenderness to Palpation of Joints or Extremities Lymphatic: No Cervical, Supraclavicular, or Inguinal Adenopathy Neurological: - - Right facial weakness and paresthesia. Loss of right nasal folds. Tongue deviate to left. Psych/Mental Status: Normal Affect Vital Signs Temp Pulse Resp BP Pulse Ox 97.8 F 58 L 18 122/76 H 96 07/28/17 16:50 07/28/17 18:55 07/28/17 16:50 07/28/17 16:50 07/28/17 16:50 Oxygen Delivery Method Room Air Weight: 288 lb 5.834 oz Body Mass Index (BMI) 47.9 Intake and Output for Last 24 Hours 07/26/17 07/27/17 07/28/17 23:59 23:59 23:59 Intake Total 180 / 180 3001 / 3001 Balance 180 / 180 3001 / 3001 Laboratory Tests Past 24 Hrs 07/28/17 06:10 Triglycerides 179 Cholesterol 186 LDL Cholesterol 122 VLDL Cholesterol 36 HDL Cholesterol 28 L Diagnostic Data Chest X-Ray 07/27/17 13:43 IMPRESSION: No acute abnormality is seen. Electronically Signed: Mu Butcher MD at 14:41 EDT Tel [phone], Service support , Brain CT 07/27/17 17:34 IMPRESSION: Vertebrobasilar dolichoectasia consistent with systemic hypertension No evidence for acute bleed. There is subtle hypoattenuation within the casandra suggesting evolving infarct. MRI recommended for further evaluation. N.B. : The above information has been verbally conveyed by Mushtaq Banegas MD to YARELIS FORRESTER, Referring Physician, on 07/27/2017 18:38:37 (ET). Electronically Signed: Mushtaq Banegas MD at 18:37 EDT , Service support , N.B. : The above information has been verbally conveyed by Mushtaq Banegas MD to YARELIS FORRESTER, Referring Physician, on 07/27/2017 18:38:37 (ET). Head CTA 07/27/17 17:48 IMPRESSION: Minor atherosclerotic disease without evidence for hemodynamically significant stenosis utilizing NASCET criteria. Electronically Signed: Mushtaq Banegas MD at 18:32 EDT , Service support , Brain MRI 07/28/17 07:53 IMPRESSION: 1. Technically limited MRI due to patient motion. 2. Acute infarcts in the left paramedian casandra and medulla. 3. There is also apparent restricted diffusion the basal ganglia,. This pattern is somewhat unusual for acute infarct but other etiologies for cytotoxic edema are possible as well. There is also restricted diffusion within the anterior corpus callosum related to cytotoxic edema not necessarily related to ischemia. N.B. : The above information has been verbally conveyed by Ana Cristina Francisco MD to Johnny Nguyen on 07/28/2017 10:26:42 (ET). Electronically Signed: Ana Cristina Francisco MD at 10:22 EDT , Service support , N.B. : The above information has been verbally conveyed by Ana Cristina Francisco MD to Johnny Nguyen on 07/28/2017 10:26:42 (ET). Medical Necessity - Tobacco Use Smoking Status: Former smoker Tobacco Use: Cigarettes Assessment/Plan Active and Suspected Problems CVA (cerebral vascular accident) (Acute) Patient is a 52 years old male, admitted on 07/27/17 for CVA with slurred speech and leg weakness. Later, he was noted to have disconjugated gaze with his right eye deviated down and out. MRI was done, confirmed pontine ischemic infarct. There was questionable possible cytotoxic edema within the anterior corpus collosum and basal ganglia. Discussed with Dr. Carter with MRI finding. Patient appears to be stable for now, continue antiplatelet therapy. 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 He was on aspirin prior to admission. Changed to Plavix. Continue neuro-check. He has some fluctuation of symptoms, but it appears stable. PT/OT and ST. Plan for inpatient rehab if approved. Permissive hypertension for now. No additional antihypertensive unless SBP >200. #2 Coronary artery disease. Stable. Continue Plavix, statin, and metoprolol. #3 Essential hypertension. Hold Norvasc if SBP <150. VTE prophylaxis: Lovenox. GI prophylaxis: ppi po. He is full code. Disposition: to be determined. Code Visit Inpatient E&M: 76523 Subs Hosp L3
--- NOTE | 2017-07-28 20:29 | PN_ITS ---
Patient Problems: Active and Suspected Problems CVA (cerebral vascular accident) (Acute) Subjective: Patient is doing about the same. He is c/o left ear pain, examination was unremarkable. - Physical Exam General: Oriented x3, Cooperative, - - Somewhat somnolent. HEENT: Atraumatic, Normocephalic, TM's Clear, - - Right eye deviate down and out. Oral: Moist Mucosa Neck: Supple, No JVD Lungs: Clear to auscultation, Normal air movement, No rhonchi, No wheeze, No rales Cardiovascular: Regular rate, Regular Rhythm, Normal S1, Normal S2, No murmurs, No Ectopic Activity Abdomen: Bowel Sounds Present, Soft, Non Tender, Non-Distended, Obese Extremities: No clubbing, No cyanosis, No edema Skin: No rashes, No breakdown Musculoskeletal: No Tenderness to Palpation of Joints or Extremities Lymphatic: No Cervical, Supraclavicular, or Inguinal Adenopathy Neurological: - - Right facial weakness and paresthesia. Loss of right nasal folds. Tongue deviate to left. Psych/Mental Status: Normal Affect Vital Signs Temp Pulse Resp BP Pulse Ox 97.8 F 58 L 18 122/76 H 96 07/28/17 16:50 07/28/17 18:55 07/28/17 16:50 07/28/17 16:50 07/28/17 16:50 Oxygen Delivery Method Room Air Weight: 288 lb 5.834 oz Body Mass Index (BMI) 47.9 Intake and Output for Last 24 Hours 07/26/17 07/27/17 07/28/17 23:59 23:59 23:59 Intake Total 180 / 180 3001 / 3001 Balance 180 / 180 3001 / 3001 Laboratory Tests Past 24 Hrs 07/28/17 06:10 Triglycerides 179 Cholesterol 186 LDL Cholesterol 122 VLDL Cholesterol 36 HDL Cholesterol 28 L Diagnostic Data Chest X-Ray 07/27/17 13:43 IMPRESSION: No acute abnormality is seen. Electronically Signed: Mu Butcher MD at 14:41 EDT Tel [phone], Service support , Brain CT 07/27/17 17:34 IMPRESSION: Vertebrobasilar dolichoectasia consistent with systemic hypertension No evidence for acute bleed. There is subtle hypoattenuation within the casandra suggesting evolving infarct. MRI recommended for further evaluation. N.B. : The above information has been verbally conveyed by Mushtaq Banegas MD to YARELIS FORRESTER, Referring Physician, on 07/27/2017 18:38:37 (ET). Electronically Signed: Mushtaq Banegas MD at 18:37 EDT , Service support , N.B. : The above information has been verbally conveyed by Mushtaq Banegas MD to YARELIS FORRESTER, Referring Physician, on 07/27/2017 18:38:37 (ET). Head CTA 07/27/17 17:48 IMPRESSION: Minor atherosclerotic disease without evidence for hemodynamically significant stenosis utilizing NASCET criteria. Electronically Signed: Mushtaq Banegas MD at 18:32 EDT , Service support , Brain MRI 07/28/17 07:53 IMPRESSION: 1. Technically limited MRI due to patient motion. 2. Acute infarcts in the left paramedian casandra and medulla. 3. There is also apparent restricted diffusion the basal ganglia,. This pattern is somewhat unusual for acute infarct but other etiologies for cytotoxic edema are possible as well. There is also restricted diffusion within the anterior corpus callosum related to cytotoxic edema not necessarily related to ischemia. N.B. : The above information has been verbally conveyed by Ana Cristina Francisco MD to Johnny Nguyen on 07/28/2017 10:26:42 (ET). Electronically Signed: Ana Cristina Francisco MD at 10:22 EDT , Service support , N.B. : The above information has been verbally conveyed by Ana Cristina Francisco MD to Johnny Nguyen on 07/28/2017 10:26:42 (ET). Medical Necessity - Tobacco Use Smoking Status: Former smoker Tobacco Use: Cigarettes Assessment/Plan Active and Suspected Problems CVA (cerebral vascular accident) (Acute) Patient is a 52 years old male, admitted on 07/27/17 for CVA with slurred speech and leg weakness. Later, he was noted to have disconjugated gaze with his right eye deviated down and out. MRI was done, confirmed pontine ischemic infarct. There was questionable possible cytotoxic edema within the anterior corpus collosum and basal ganglia. Discussed with Dr. Carter with MRI finding. Patient appears to be stable for now, continue antiplatelet therapy. 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 He was on aspirin prior to admission. Changed to Plavix. Continue neuro-check. He has some fluctuation of symptoms, but it appears stable. PT/OT and ST. Plan for inpatient rehab if approved. Permissive hypertension for now. No additional antihypertensive unless SBP > 200. #2 Coronary artery disease. Stable. Continue Plavix, statin, and metoprolol. #3 Essential hypertension. Hold Norvasc if SBP <150. VTE prophylaxis: Lovenox. GI prophylaxis: ppi po. He is full code. Disposition: to be determined. Code Visit Inpatient E&M: 42397 Subs Hosp L3
[2017-07-28] MEDS: Metoprolol Tartrate 100 MG Tablet PO (22:33)
[2017-07-29] VITALS (9 sets, daily range): BP systolic 129–167; BP diastolic 75–96; PULSE 55–73; RESP 16–18; TEMP 36.5–37; O2SAT 94–97
[2017-07-29] MEDS: 0.9% Normal Saline 1,000 ML 100 ML IV ×2 (02:00→12:07)
[2017-07-29] MEDS: Enoxaparin 40 MG/0.4 ML Syringe SC (05:42)
--- NOTE | 2017-07-29 06:33 | SLEEP ---
07/28/17 1400: Pt's spouse to bring in his BiPAP machine from home. Pt has not worn for a year. Pt's spouse explained that Dr. Carter didn't want him to wear his BiPAP until he had been retested. I assured her that we had spoken to Dr. Carter and he would like the pt to be on his BiPAP NING. I explained the benefits of treating his DENY to help prevent any cardiovascular and/or neurology complications. I placed a large ResMed F20 full face mask in his room as he c/o his current home mask leaking and causing discomfort. cnc machinist 2nd shift respiratory will fit him and educate on how to adjust the headgear. Pt is agreeable. Last documented BiPAP settings are 04/04.
[2017-07-29 07:13] LABS: Hematocrit 41.6 % (40-54); Hemoglobin 13.6 g/dl (13.0-16.5); Mean Corp Hgb Conc 32.7 g/gl (32-36); Mean Corpuscular Hgb 28.6 pg (27.0-32.0); Mean Corpuscular Volume 87.6 fL (80-94); Mean Platelet Vol. 8.4 fl (6.2-12.0); Platelet Count 241 K/mm3 (150-450); RBC Distribution Width CV 13.5 % (11.6-14.6); RBC Distribution Width SD 42.8 fl (35.1-43.9); Red Blood Count 4.75 M/mm3 (4.6-6.2); White Blood Count 6.4 K/mm3 (4.4-11.0)
[2017-07-29 07:15] LABS: Scan Indicated on CBC? Y/N NO
[2017-07-29 07:31] LABS: Anion Gap 6 (5-15); BUN 12 mg/dL (7-18); BUN/Creat Ratio 15.8 RATIO (10-20); Calcium,Total 7.6 mg/dL (8.5-10.1); Chloride 106 mmol/L (98-107); Creatinine, Serum 0.76 mg/dL (0.70-1.30); EST Glomerular Filtration Rate 116 mL/min (>60); Est Glom Filt Rate - Afr Amer 140 mL/min (>60); Estimated Creatinine Clearance 101.15 ml/min; Glucose 110 mg/dL (74-106); Sodium Level 140 mmol/L (136-145)
[2017-07-29] MEDS: Metoprolol Tartrate 100 MG Tablet PO (09:46)
[2017-07-29] MEDS: Clopidogrel Bisulfate 75 MG Tablet PO (09:46)
[2017-07-29] MEDS: Pantoprazole Sodium 20 MG Tablet PO (09:46)
--- NOTE | 2017-07-29 10:14 | PCM.PN.NEU ---
Patient Problems: Active and Suspected Problems CVA (cerebral vascular accident) (Acute) Subjective: NO NEW COMPLAINTTS, present, appears stable, hasnt used cpap yet, trialed brieffly during my interview and appears to be tolerating, - Physical Exam General: Alert, Oriented x3, Cooperative, No apparent distress Neurological: - - stable dysarthria and right side discoord Vital Signs Temp Pulse Resp BP Pulse Ox 36.5 C L 66 16 167/75 H 94 07/29/17 09:51 07/29/17 09:51 07/29/17 09:51 07/29/17 09:51 07/29/17 09:51 Oxygen Delivery Method Room Air Weight: 130.8 kg Body Mass Index (BMI) 47.9 Intake and Output for Last 24 Hours 07/27/17 07/28/17 07/29/17 23:59 23:59 23:59 Intake Total 180 / 180 3001 / 3001 1694 / 1694 Balance 180 / 180 3001 / 3001 1694 / 1694 Laboratory Tests Past 24 Hrs 07/29/17 07/29/17 06:10 06:10 WBC 6.4 RBC 4.75 Hgb 13.6 Hct 41.6 MCV 87.6 MCH 28.6 MCHC 32.7 RDW 13.5 RDW Differential 42.8 Plt Count 241 MPV 8.4 Sodium 140 Potassium 4.0 Chloride 106 Carbon Dioxide 28.0 Anion Gap 6 BUN 12 Creatinine 0.76 Estim Creat Clear Calc 101.15 Est GFR (MDRD) Af Amer 140 Est GFR (MDRD) Non-Af 116 BUN/Creatinine Ratio 15.8 Glucose 110 H Calcium 7.6 L Current Medications Generic Name Dose Route Start Last Admin Trade Name Freq PRN Reason Stop Dose Admin Amlodipine Besylate 10 mg 07/28/17 17:00 07/29/17 09:45 Norvasc PO Not Given DAILY CHELSEA Clopidogrel Bisulfate 75 mg 07/28/17 17:37 07/29/17 09:46 Plavix PO 75 mg DAILY CHELSEA Administration Enoxaparin Sodium 40 mg 07/28/17 06:00 07/29/17 05:42 Lovenox SC 40 mg DAILY@0600 CHELSEA Administration Sodium Chloride 250 mls @ 15 mls/hr 07/27/17 16:18 IV .[id number] PRN SALINE FLUSH Sodium Chloride 1,000 mls @ 100 mls/hr 07/27/17 20:15 07/29/17 02:00 IV 100 mls/hr .Q10H CHELSEA Administration Magnesium Hydroxide 30 ml 07/27/17 16:33 Milk Of Magnesia PO DAILY PRN Constipation Metoprolol Tartrate 100 mg 07/27/17 22:00 07/29/17 09:46 Lopressor (Beta Jaleel) PO 100 mg BID CHELSEA Administration Ondansetron HCl 4 mg 07/27/17 20:14 07/27/17 20:56 Zofran IV 4 mg Q6H PRN PRN Administration nausea, emesis Pantoprazole Sodium 20 mg 07/29/17 10:00 07/29/17 09:46 Protonix PO 20 mg DAILY CHELSEA Administration Promethazine HCl 6.25 mg 07/27/17 20:14 Phenergan IV Q4H PRN PRN NAUSEA/VOMITING Sodium Chloride 5 - 30 ml 07/27/17 16:17 07/27/17 20:57 IV 10 ml UD PRN Administration SALINE FLUSH ECHO NORMAL Medical Necessity - Tobacco Use Smoking Status: Former smoker Tobacco Use: Cigarettes Assessment/Plan Active and Suspected Problems CVA (cerebral vascular accident) (Acute) impression: pontine (small vessel) infarct change asa to plavix when able to take po permissive htn outpt psg: last study 4yrs ago, but reports has failed multple masks. retry mask now, may need autopap therapies consider rehab eye patch
--- NOTE | 2017-07-29 11:15 | CASEMGMT ---
Mari is starting pre-cert for patient to go to rehab unit today. Plan: [facility] 4th floor rehab unit pending insurance approval. Erica REDDY MSW
--- NOTE | 2017-07-29 13:05 | CASEMGMT ---
Patient was approved to go to the inpatient rehab unit at [facility]. FIDEL notified physician, RN, patient, and his . FIDEL also gave them a pamphlet on inpatient rehab. Plan: [facility] 4th floor rehab unit Erica CHÁVEZ
--- NOTE | 2017-07-29 14:45 | PCM.DC ---
- Discharge Diagnoses Current Active Problems: Current Active and Chronic Problems CVA (cerebral vascular accident) (Acute) You will use the following diet at home:: Cardiac Your food should be the consistency of: Regular Your liquids should be the consistency of: Regular/Thin Allergies/Adverse Reactions: Allergies abciximab [From Reopro] Allergy (Verified 07/27/17 13:11) SEVERE THROMBOCYTOPENIA Medications to take at Discharge Amlodipine [Norvasc] 10 mg PO DAILY 07/27/17 Metoprolol Tartrate [Lopressor (beta fatimah)] 100 mg PO BID 07/27/17 Atorvastatin Calcium [Lipitor] 40 mg PO QHS #30 tablet 07/29/17 Clopidogrel Bisulfate [Plavix] 75 mg PO DAILY tablet 07/29/17 Lisinopril [Zestril] 5 mg PO DAILY #30 tablet 07/29/17 The following prescriptions were given: Atorvastatin Calcium [Lipitor] 40 mg PO QHS #30 tablet Lisinopril [Zestril] 5 mg PO DAILY #30 tablet Primary Care Physician: Thais Fox MD [Primary Care Provider] - Please follow up with your Primary Care Physician in: to be determined.
--- NOTE | 2017-07-29 14:48 | PCM.DC.SUM ---
Discharge Date and Diagnosis - Problem List Patient Problems: Active and Suspected Problems CVA (cerebral vascular accident) (Acute) Date of Admission: 07/27/17 Date of Discharge: 07/29/17 - Primary Discharge Diagnosis Active and Suspected Problems CVA (cerebral vascular accident) (Acute) - Secondary Discharge Diagnosis Chronic Problems Hypertension (Chronic) Morbid obesity with BMI of 45.0-49.9, adult (Chronic) Sleep apnea (Chronic) On BiPAP at night 04/04 Coronary artery disease (Chronic) Status post PTCA and stents ?4, last in 2011 Hospital Course and Treatment Imaging Results: Diagnostic Data Chest X-Ray 07/27/17 13:43 IMPRESSION: No acute abnormality is seen. Electronically Signed: Mu Butcher MD at 14:41 EDT Tel [phone], Service support , Brain CT 07/27/17 17:34 IMPRESSION: Vertebrobasilar dolichoectasia consistent with systemic hypertension No evidence for acute bleed. There is subtle hypoattenuation within the casandra suggesting evolving infarct. MRI recommended for further evaluation. N.B. : The above information has been verbally conveyed by Mushtaq Banegas MD to YARELIS FORRESTER, Referring Physician, on 07/27/2017 18:38:37 (ET). Electronically Signed: Mushtaq Banegas MD at 18:37 EDT , Service support , N.B. : The above information has been verbally conveyed by Mushtaq Banegas MD to YARELIS FORRESTER, Referring Physician, on 07/27/2017 18:38:37 (ET). Head CTA 07/27/17 17:48 IMPRESSION: Minor atherosclerotic disease without evidence for hemodynamically significant stenosis utilizing NASCET criteria. Electronically Signed: Mushtaq Banegas MD at 18:32 EDT , Service support , Neck CTA 07/27/17 17:48 IMPRESSION: Minor atherosclerotic disease without evidence for hemodynamically significant stenosis utilizing NASCET criteria. Electronically Signed: Mushtaq Banegas MD at 18:32 EDT , Service support , Brain MRI 07/28/17 07:53 IMPRESSION: 1. Technically limited MRI due to patient motion. 2. Acute infarcts in the left paramedian casandra and medulla. 3. There is also apparent restricted diffusion the basal ganglia,. This pattern is somewhat unusual for acute infarct but other etiologies for cytotoxic edema are possible as well. There is also restricted diffusion within the anterior corpus callosum related to cytotoxic edema not necessarily related to ischemia. N.B. : The above information has been verbally conveyed by Ana Cristina Francisco MD to Johnny Nguyen on 07/28/2017 10:26:42 (ET). Electronically Signed: Ana Cristina Francisco MD at 10:22 EDT , Service support , N.B. : The above information has been verbally conveyed by Ana Cristina Francisco MD to Johnny Nguyen on 07/28/2017 10:26:42 (ET). ASSISTANT LIBRARIAN: Dr. Carter, Neurology. Operations: None Procedures: None Summary of Care Provided: Patient is a 52 years old male, admitted on 07/27/17 for CVA with slurred speech and leg weakness. Later, he was noted to have disconjugated gaze with his right eye deviated down and out. MRI was done, confirmed pontine ischemic infarct. There was questionable possible cytotoxic edema within the anterior corpus collosum and basal ganglia. Discussed with Dr. Carter with MRI finding. Patient appears to be stable for now, continue antiplatelet therapy. On 07/29/17, his condition has been stable. There was no additional neurological deficit, but continues to have Right occular motor weakness, right facial weakness and numbness, and slurred speech. He was recommended to continue therapy at Rehab Unit. 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 He was on aspirin prior to admission. Changed to Plavix. Statin and ACEi were added. Continue neuro-check. He has some fluctuation of symptoms, but it appears stable. PT/OT and ST. Plan for inpatient rehab. Permissive hypertension for initial 24 hours. Titrate antihypertensive for HTN goal. #2 Coronary artery disease. Stable. Continue Plavix, statin, and metoprolol. Aspirin was changed to Plavix for new CVA. #3 Essential hypertension. Hold Norvasc if SBP <150. #4 DENY. Continue CPAP HS and during the nap. He is full code. Disposition: Rehab Unit. Discharge Diet: - - Cardiac Discharge Activity: Return to Normal Activity - as tolerated. Follow PT/OT/ST Home Medications: Medications to take at Discharge Amlodipine [Norvasc] 10 mg PO DAILY 07/27/17 Metoprolol Tartrate [Lopressor (beta fatimah)] 100 mg PO BID 07/27/17 Atorvastatin Calcium [Lipitor] 40 mg PO QHS #30 tablet 07/29/17 Clopidogrel Bisulfate [Plavix] 75 mg PO DAILY tablet 07/29/17 Lisinopril [Zestril] 5 mg PO DAILY #30 tablet 07/29/17 Following Prescrptions Were Given to Patient: Atorvastatin Calcium [Lipitor] 40 mg PO QHS #30 tablet Lisinopril [Zestril] 5 mg PO DAILY #30 tablet Primary Care Physician: Thais Fox MD [Primary Care Provider] - Please follow up with your Primary Care Physician in: to be determined. Disposition: Inpt Rehab Unit/Facility Patient Condition:: Good Medical Necessity - Tobacco Use Smoking Status: Former smoker Tobacco Use: Cigarettes Meaningful Use Info Meaningful Use Diagnoses (Choose all that apply): Ischemic CVA - CVA Therapy Assessed for PT,OT and/or ST?: Yes - Ischemic Stroke Antithrombotic order at d/c?: Yes Dx of Atrial fib/flutter?: No Statins at discharge?: Yes Primary Dx Acute Ischemic CVA?: Yes IV tPA ordered during stay?: No Reason IV t-PA not ordered: Treatment not Indicated - out of therapeutic window. Code Visit Inpatient E&M: 34398 Disch Hosp
--- NOTE | 2017-07-29 14:56 | DS.PCM_ITS ---
Discharge Date and Diagnosis - Problem List Patient Problems: Active and Suspected Problems CVA (cerebral vascular accident) (Acute) Date of Admission: 07/27/17 Date of Discharge: 07/29/17 - Primary Discharge Diagnosis Active and Suspected Problems CVA (cerebral vascular accident) (Acute) - Secondary Discharge Diagnosis Chronic Problems Hypertension (Chronic) Morbid obesity with BMI of 45.0-49.9, adult (Chronic) Sleep apnea (Chronic) On BiPAP at night 04/04 Coronary artery disease (Chronic) Status post PTCA and stents ?4, last in 2011 Hospital Course and Treatment Imaging Results: Diagnostic Data Chest X-Ray 07/27/17 13:43 IMPRESSION: No acute abnormality is seen. Electronically Signed: Mu Butcher MD at 14:41 EDT Tel [phone], Service support , Brain CT 07/27/17 17:34 IMPRESSION: Vertebrobasilar dolichoectasia consistent with systemic hypertension No evidence for acute bleed. There is subtle hypoattenuation within the casandra suggesting evolving infarct. MRI recommended for further evaluation. N.B. : The above information has been verbally conveyed by Mushtaq Banegas MD to YARELIS FORRESTER, Referring Physician, on 07/27/2017 18:38:37 (ET). Electronically Signed: Mushtaq Banegas MD at 18:37 EDT , Service support , N.B. : The above information has been verbally conveyed by Mushtaq Banegas MD to YARELIS FORRESTER, Referring Physician, on 07/27/2017 18:38:37 (ET). Head CTA 07/27/17 17:48 IMPRESSION: Minor atherosclerotic disease without evidence for hemodynamically significant stenosis utilizing NASCET criteria. Electronically Signed: Mushtaq Banegas MD at 18:32 EDT , Service support , Neck CTA 07/27/17 17:48 IMPRESSION: Minor atherosclerotic disease without evidence for hemodynamically significant stenosis utilizing NASCET criteria. Electronically Signed: Mushtaq Banegas MD at 18:32 EDT , Service support , Brain MRI 07/28/17 07:53 IMPRESSION: 1. Technically limited MRI due to patient motion. 2. Acute infarcts in the left paramedian casandra and medulla. 3. There is also apparent restricted diffusion the basal ganglia,. This pattern is somewhat unusual for acute infarct but other etiologies for cytotoxic edema are possible as well. There is also restricted diffusion within the anterior corpus callosum related to cytotoxic edema not necessarily related to ischemia. N.B. : The above information has been verbally conveyed by Ana Cristina Frnacisco MD to Johnny Nguyen on 07/28/2017 10:26:42 (ET). Electronically Signed: Ana Cristina Francisco MD at 10:22 EDT , Service support , N.B. : The above information has been verbally conveyed by Ana Cristina Francisco MD to Johnny Nguyen on 07/28/2017 10:26:42 (ET). DATABASE ADMINISTRATION PROJECT MANAGER: Dr. Carter, Neurology. Operations: None Procedures: None Summary of Care Provided: Patient is a 52 years old male, admitted on 07/27/17 for CVA with slurred speech and leg weakness. Later, he was noted to have disconjugated gaze with his right eye deviated down and out. MRI was done, confirmed pontine ischemic infarct. There was questionable possible cytotoxic edema within the anterior corpus collosum and basal ganglia. Discussed with Dr. Carter with MRI finding. Patient appears to be stable for now, continue antiplatelet therapy. On 07/29/17, his condition has been stable. There was no additional neurological deficit, but continues to have Right occular motor weakness, right facial weakness and numbness, and slurred speech. He was recommended to continue therapy at Rehab Unit. 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 He was on aspirin prior to admission. Changed to Plavix. Statin and ACEi were added. Continue neuro-check. He has some fluctuation of symptoms, but it appears stable. PT/OT and ST. Plan for inpatient rehab. Permissive hypertension for initial 24 hours. Titrate antihypertensive for HTN goal. #2 Coronary artery disease. Stable. Continue Plavix, statin, and metoprolol. Aspirin was changed to Plavix for new CVA. #3 Essential hypertension. Hold Norvasc if SBP <150. #4 DENY. Continue CPAP HS and during the nap. He is full code. Disposition: Rehab Unit. Discharge Diet: - - Cardiac Discharge Activity: Return to Normal Activity - as tolerated. Follow PT/OT/ST Home Medications: Medications to take at Discharge Amlodipine [Norvasc] 10 mg PO DAILY 07/27/17 Metoprolol Tartrate [Lopressor (beta fatimah)] 100 mg PO BID 07/27/17 Atorvastatin Calcium [Lipitor] 40 mg PO QHS #30 tablet 07/29/17 Clopidogrel Bisulfate [Plavix] 75 mg PO DAILY tablet 07/29/17 Lisinopril [Zestril] 5 mg PO DAILY #30 tablet 07/29/17 Following Prescrptions Were Given to Patient: Atorvastatin Calcium [Lipitor] 40 mg PO QHS #30 tablet Lisinopril [Zestril] 5 mg PO DAILY #30 tablet Primary Care Physician: Thais Fox MD [Primary Care Provider] - Please follow up with your Primary Care Physician in: to be determined. Disposition: Inpt Rehab Unit/Facility Patient Condition:: Good Medical Necessity - Tobacco Use Smoking Status: Former smoker Tobacco Use: Cigarettes Meaningful Use Info Meaningful Use Diagnoses (Choose all that apply): Ischemic CVA - CVA Therapy Assessed for PT,OT and/or ST?: Yes - Ischemic Stroke Antithrombotic order at d/c?: Yes Dx of Atrial fib/flutter?: No Statins at discharge?: Yes Primary Dx Acute Ischemic CVA?: Yes IV tPA ordered during stay?: No Reason IV t-PA not ordered: Treatment not Indicated - out of therapeutic window. Code Visit Inpatient E&M: 97641 Disch Hosp
== END 2017-07-29 15:40 | DRG 65 ==
LOC: ED 13:57 → PCU 16:04
PROVIDERS: Emergency Provider Emergency Medicine; Family Provider Internal Medicine; PCP Internal Medicine; Visit Provider Hospitalist
DX: I63.9 Cerebral infarction, unspecified (principal); Z68.42 Body mass index [BMI] 45.0-49.9, adult; R47.81 Slurred speech; I25.10 Atherosclerotic heart disease of native coronary artery without angina pectoris; I10 Essential (primary) hypertension; E66.01 Morbid (severe) obesity due to excess calories; G47.30 Sleep apnea, unspecified; Z95.5 Presence of coronary angioplasty implant and graft; Z87.891 Personal history of nicotine dependence; Z79.82 Long term (current) use of aspirin
CPT/HCPCS: 36415; 70450; 70496; 70498; 70553; 71045; 80048; 80061; 84484; 85025; 85027; 85610; 85730; 92523; 93005; 93306; 97162; 97166; 97530; 99285; A9585; J7030; Q9957; Q9967; A4216; J2405

== ENCOUNTER 2017-07-29 15:40 | Inpatient (IN) | payer OTHER, SELFPAY ==
[2017-07-29 16:55] VITALS: BP 174/93; PULSE 52; RESP 20; TEMP 37.1; O2SAT 94; BMI 48.4
[2017-07-29 21:00] VITALS: O2SAT 96
[2017-07-29 21:23] VITALS: BP 165/103; PULSE 60
[2017-07-29] MEDS: Atorvastatin Calcium 40 MG Tablet PO (21:23)
[2017-07-29] MEDS: Metoprolol Tartrate 100 MG Tablet PO (21:23)
[2017-07-29 21:48] VITALS: BP 165/103; PULSE 61; RESP 20; TEMP 37; O2SAT 92
--- NOTE | 2017-07-30 04:39 | NURSING ---
Reviewed and agree with LPNs fims and handoff
[2017-07-30 07:15] VITALS: O2SAT 93
[2017-07-30 09:16] VITALS: BP 173/102; PULSE 59; RESP 18; TEMP 36.4; O2SAT 93
[2017-07-30 09:22] VITALS: BP 173/102; PULSE 59
[2017-07-30] MEDS: amLODIPine 10 MG Tablet PO (09:22)
[2017-07-30] MEDS: Metoprolol Tartrate 100 MG Tablet PO (09:22)
[2017-07-30] MEDS: Lisinopril 5 MG Tablet PO ×2 (09:22→10:25)
[2017-07-30] MEDS: Clopidogrel Bisulfate 75 MG Tablet PO (09:22)
--- NOTE | 2017-07-30 09:40 | PCM.PROGNOTE ---
Patient Problems: Active and Suspected Problems CVA (cerebral vascular accident) (Acute) Subjective: He feels well. He has no additional neurological deficit. Weakness of extra-ocular muscle and slurred speech unchanged. No focal weakness of extremities. No headache or dizziness. - Physical Exam General: Oriented x3, Cooperative, - - Somewhat somnolent. HEENT: Atraumatic, Normocephalic, TM's Clear, - - Right eye deviate down and out. Oral: Moist Mucosa Neck: Supple, No JVD Lungs: Clear to auscultation, Normal air movement, No rhonchi, No wheeze, No rales Cardiovascular: Regular rate, Regular Rhythm, Normal S1, Normal S2, No murmurs, No Ectopic Activity Abdomen: Bowel Sounds Present, Soft, Non Tender, Non-Distended, Obese Extremities: No clubbing, No cyanosis, No edema Skin: No rashes, No breakdown Musculoskeletal: No Tenderness to Palpation of Joints or Extremities Lymphatic: No Cervical, Supraclavicular, or Inguinal Adenopathy Neurological: - - Right facial weakness and paresthesia. Loss of right nasal folds. Tongue deviate to left. Psych/Mental Status: Normal Affect - Physical Exam Vital Signs Temp Pulse Resp BP Pulse Ox 97.5 F L 59 L 18 173/102 H 93 07/30/17 09:16 07/30/17 09:22 07/30/17 09:16 07/30/17 09:22 07/30/17 09:16 Oxygen Delivery Method Room Air Weight: 290 lb 12.635 oz Body Mass Index (BMI) 48.4 Finger Stick Blood Glucose 173 Intake and Output for Last 24 Hours 07/28/17 07/29/17 07/30/17 23:59 23:59 23:59 Intake Total 360 / 360 Output Total 600 / 600 Balance 360 / 360 -600 / -600 Medical Necessity - Tobacco Use Smoking Status: Former smoker Tobacco Use: Cigarettes Assessment/Plan Active and Suspected Problems CVA (cerebral vascular accident) (Acute) Patient is a 52 years old male, admitted on 07/27/17 for CVA with slurred speech and leg weakness. Later, he was noted to have disconjugated gaze with his right eye deviated down and out. MRI was done, confirmed pontine ischemic infarct. There was questionable possible cytotoxic edema within the anterior corpus collosum and basal ganglia. Discussed with Dr. Carter with MRI finding. Patient appears to be stable for now, continue antiplatelet therapy. 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 He was on aspirin prior to admission. Changed to Plavix. He was transferred to rehab unit on 07/29/17. PT/OT and ST. #2 Coronary artery disease. Stable. Continue Plavix, statin, and metoprolol. #3 Essential hypertension. On Norvasc 10 mg daily, Lopressor 100 mg po bid, and lisinopril 5 mg (added on 07/29). Goal BP < 120/80. BP still high, ranging 150 to 170 systolic. Increase lisinopril to 10 mg from 5 mg daily. (07/30). #4 Sleep apnea. Continue CPAP at HS. Code Visit Inpatient E&M: 70068 Subs Hosp L2
--- NOTE | 2017-07-30 09:49 | PN_ITS ---
Patient Problems: Active and Suspected Problems CVA (cerebral vascular accident) (Acute) Subjective: He feels well. He has no additional neurological deficit. Weakness of extra- ocular muscle and slurred speech unchanged. No focal weakness of extremities. No headache or dizziness. - Physical Exam General: Oriented x3, Cooperative, - - Somewhat somnolent. HEENT: Atraumatic, Normocephalic, TM's Clear, - - Right eye deviate down and out. Oral: Moist Mucosa Neck: Supple, No JVD Lungs: Clear to auscultation, Normal air movement, No rhonchi, No wheeze, No rales Cardiovascular: Regular rate, Regular Rhythm, Normal S1, Normal S2, No murmurs, No Ectopic Activity Abdomen: Bowel Sounds Present, Soft, Non Tender, Non-Distended, Obese Extremities: No clubbing, No cyanosis, No edema Skin: No rashes, No breakdown Musculoskeletal: No Tenderness to Palpation of Joints or Extremities Lymphatic: No Cervical, Supraclavicular, or Inguinal Adenopathy Neurological: - - Right facial weakness and paresthesia. Loss of right nasal folds. Tongue deviate to left. Psych/Mental Status: Normal Affect - Physical Exam Vital Signs Temp Pulse Resp BP Pulse Ox 97.5 F L 59 L 18 173/102 H 93 07/30/17 09:16 07/30/17 09:22 07/30/17 09:16 07/30/17 09:22 07/30/17 09:16 Oxygen Delivery Method Room Air Weight: 290 lb 12.635 oz Body Mass Index (BMI) 48.4 Finger Stick Blood Glucose 173 Intake and Output for Last 24 Hours 07/28/17 07/29/17 07/30/17 23:59 23:59 23:59 Intake Total 360 / 360 Output Total 600 / 600 Balance 360 / 360 -600 / -600 Medical Necessity - Tobacco Use Smoking Status: Former smoker Tobacco Use: Cigarettes Assessment/Plan Active and Suspected Problems CVA (cerebral vascular accident) (Acute) Patient is a 52 years old male, admitted on 07/27/17 for CVA with slurred speech and leg weakness. Later, he was noted to have disconjugated gaze with his right eye deviated down and out. MRI was done, confirmed pontine ischemic infarct. There was questionable possible cytotoxic edema within the anterior corpus collosum and basal ganglia. Discussed with Dr. Carter with MRI finding. Patient appears to be stable for now, continue antiplatelet therapy. 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 He was on aspirin prior to admission. Changed to Plavix. He was transferred to rehab unit on 07/29/17. PT/OT and ST. #2 Coronary artery disease. Stable. Continue Plavix, statin, and metoprolol. #3 Essential hypertension. On Norvasc 10 mg daily, Lopressor 100 mg po bid, and lisinopril 5 mg (added on ). Goal BP < 120/80. BP still high, ranging 150 to 170 systolic. Increase lisinopril to 10 mg from 5 mg daily. (07/30). #4 Sleep apnea. Continue CPAP at HS. Code Visit Inpatient E&M: 17370 Subs Hosp L2
[2017-07-30 10:34] VITALS: BMI 48.4
--- NOTE | 2017-07-30 14:18 | HP.PCM_ITS ---
History of Present Illness Date of Admission: 07/30/17 Chief Complaint: Debility due to right-sided weakness and stroke Mr. Nolasco is a 52-year-old left-handed male who was admitted to [facility] acute rehab unit after a hospitalization for stroke, symptoms of which occurred on 07/27/17. Initially presented with slurred speech and balance trouble, as well as right ear pain. He began to experience worsening of his speech after the first day of hospitalization but this has stabilized. He is previously diagnosed with obstructive sleep apnea but was noncompliant and his last sleep study was greater than 4 years ago. He did take aspirin 81 mg per day. He also noted that his blood pressures were high at home. He was admitted to the hospital, workup included MRI which showed a small left pontine infarct consistent with his symptoms. Therapies were initiated and it was felt that he was appropriate for rehab. He was admitted to the rehab unit with a goal of improving his functional status of that he could return home to his previous level of functional independence. Past Medical History Past Medical History (Chronic Problems): Chronic Problems Hypertension (Chronic) Morbid obesity with BMI of 45.0-49.9, adult (Chronic) Sleep apnea (Chronic) On BiPAP at night 04/04 Coronary artery disease (Chronic) Status post PTCA and stents ?4, last in 2011 Allergies abciximab [From Reopro] Allergy (Verified 07/27/17 13:11) SEVERE THROMBOCYTOPENIA Home Medications: Ambulatory Orders Medication Instructions Recorded Amlodipine [Norvasc] 10 mg PO DAILY 07/27/17 Metoprolol Tartrate [Lopressor 100 mg PO BID 07/27/17 (beta fatimah)] Atorvastatin Calcium [Lipitor] 40 mg PO QHS 07/29/17 Clopidogrel Bisulfate [Plavix] 75 mg PO DAILY 07/29/17 Lisinopril [Zestril] 5 mg PO DAILY 07/29/17 Lives: Spouse/ Significant Other Smoking Status: Former smoker Tobacco Use: Cigarettes - *Family History Maternal History Items: No pertinent history, - - No stroke Review of Systems Constitutional: Denies: Chills, Fever, Weight Change Eyes: Reports: Double vision HEENT: Denies: Head Aches, Sinus Congestion, Sinus Drainage Cardiovascular: Denies: Chest Pain, Palpitations Respiratory: Denies: Cough, Shortness of breath at rest, Sputum production Gastrointestinal: Denies: Abdominal Pain, Nausea, Vomiting Genitourinary: Denies: Dysuria Musculoskeletal: Denies: Joint Pain, Joint Tenderness Skin: Denies: Rash, Wounds Neurological: Reports: Blurred vision, Double vision, Change in Speech, Slurred speech, Focal weakness. Denies: Numbness, Tingling Psychiatric: Denies: Anxiety, Depression, Homicidal Ideations, Suicidal Ideations Hematologic/ Lymphatic: Denies: Easy Bruising, Easy Bleeding VTE Information - Inpt Only VTE Present on Admission: Yes - Physical Exam General: Alert, Oriented x3, Cooperative HEENT: Atraumatic, PERRLA, EOMI, Normocephalic Neck: Supple, No JVD, Negative Carotid Bruits Lungs: Clear to auscultation, Normal air movement Cardiovascular: Regular rate, No murmurs Abdomen: Bowel Sounds Present, Soft, Non Tender Extremities: No edema, Capillary Refill Less than 3 Seconds Skin: No rashes, No breakdown Musculoskeletal: No Tenderness to Palpation of Joints or Extremities Neurological: Cranial nerves II-XII grossly intact, - - Neuro exam he has dysarthria, right sided discoordination and mild right-sided weakness as well as a right medial rectus palsy. Psych/Mental Status: Normal Affect, Appropriate Vital Signs Temp Pulse Resp BP Pulse Ox 36.4 C L 59 L 18 173/102 H 93 07/30/17 09:16 07/30/17 09:22 07/30/17 09:16 07/30/17 09:22 07/30/17 09:16 Oxygen Delivery Method Room Air Weight: 131.9 kg Body Mass Index (BMI) 48.4 Finger Stick Blood Glucose 173 Intake and Output for Last 24 Hours 07/28/17 07/29/17 07/30/17 23:59 23:59 23:59 Intake Total 360 / 360 Output Total 600 / 600 Balance 360 / 360 -600 / -600 Assessment/Plan Early due to left pontine infarct with dysarthria, diplopia, and right-sided discoordination. Complicated by obstructive sleep apnea and hypertension. Goal of rehab is presybeterian of prior level of functional independence. Plan: Physical therapy for gait and balance Occupational Therapy for ADLs Bowel protocol As needed analgesics DVT prophylaxis: Lovenox Blood pressure control Obstructive sleep apnea: Currently on home BiPAP, which she is tolerating. He will need an outpatient sleep study ever since his last study was greater than 4 years ago.
--- NOTE | 2017-07-30 14:19 | PCM.RU.PYE ---
Admission Information Status Changes from Prescreening?: No changes Identified Actual Problem List:: Mobility Impaired, Self Care Deficit, BP, Hypertension, Ineffect.D/C Plan r/t Psy Potential Problem List:: DVT, Bleeding, Infection, UTI, Aspiration, Falls, Skin Integrity, Depression Risk of Complications DVT: LMWH, DAVID Hose, Sequential Compression Device Bleeding: Monitor Lab Values, Nursing to Teach Precautions for anti-coagulation therapy., Wound, if applicable, to be assessed every shift., Stroke patients assessed for lethargy or change in status. Infection: Clinical Staff to Monitor for S/S of infection:, S/S of infection include fever, redness, warmth, etc. Urinary Tract Infection: Monitor for frequency, burning, discomfort, or incontinence., Nursing will obtain urine sample for urinalysis and C&S when ordered. Aspiration: Clinical staff will monitor for coughing, drooling, congestion., Speech will evaluate swallowing and dsyphasia., Nursing will monitor patient swallowing during meals. Falls: Patient will be evaluated for Fall Precautions, Patient will be placed on Fall Precautions as indicated per protocol. Skin Breakdown: Nursing will assess skin daily using assessment tool., Nursing will place on Skin Breakdown Precautions as indicated. Pain: Clinical staff will assess patient's pain level per protocol., Medications will be given, if needed, and the pain level reassessed., Other methods: Massage, distraction, decrease stimulus, etc. used PRN. Plan of Care Patient requires physician specializing in physical medicine and rehab oversight to provide close medical supervision of rehab issues including: Pain Management, Sleep Problems, Bowel and Bladder, Medical and co-morbidity Management, DVT prophylaxis, Rehabilitation Leadership, Coordination of treatment team Patient needs Physical Therapy: For a minimum of 1 hour, At least 5 out of 7 days Patient needs Physical Therapy to improve:: Mobility, Mobility, Mobility, Strengthening, Transfers, Stretching, ROM, Endurance, Stairs, Gait, Balance Patient needs Occupational Therapy: For a minimum of 1 hour, At least 5 out of 7 days Patient needs Occupational Therapy to improve ADL's incl.: Eating, Grooming, Bathing, Dressing, Toileting, Toilet transfers, Community Reintegration, Higher functioning activities, Household tasks, Adaptive Equipment, Splinting, Other activities as determined Patient requires speech therapy: For a minimum of 1 hour, At least 5 out of 7 days Patient requires speech therapy for: Swallowing, Cognition, Language Skills, Compensatory Strategies Patient requires 24/7 Rehabilitation Nursing for: Pain Issues, Identifying and preventing risk factors, Monitoring and reporting current medical conditions, Assisting with ambulation, transfer, and all ADL's, Teaching patients about disease process and medications, Family teaching, Providing safe environment, Bowel and Bladder Issues, Skin integrity, Medication Management Patient needs Record Retrieval Specialist/ Case Management for: Discharge Planning, Arranging Home Equipment or Services, Family Interventions Patient needs Dietary and Nutrition Services for: Adequate Nutrition, Nutritional Supplements, Nutritional Education Goals Patient will remain: free from falls, or injury at time of discharge. Patient will perform bed mobility at: MOD I level of assist. Patient will complete transfers from bed to chair at: MOD I level of assist. Patient will ambulate: 100 feet, with MOD I assist, with LRD Patient will complete upper body dressing at: MOD I level of assist. Patient will complete lower body dressing at: MOD I level of assist. Patient will complete toileting at: MOD I level of assist. Patient will perform bathing at: MOD I level of assist. Patient will complete grooming at: MOD I level of assist. Patient will complete home management skills at: MOD I level of assist. Patient will achieve: 12 stairs, at MOD I assist Patient will have pain level of: of 3 or less Patient's skin will: remain intact, free from infection. Patient will receive: adequate nutrition. Discharge Planning Pt Prognosis for Sig. Practical Improv. w/in Reasonable Time: Good Anticipated D/C Destination: Home with Outpt Therapy Was Preadmission Assessment Accurate?: Yes
--- NOTE | 2017-07-30 16:05 | NURSING ---
Per. phone conversation with Dr. Carter do not start pt on Lovenox, pt needs to be compliant with SCDs.
[2017-07-30 19:49] VITALS: BP 141/75; PULSE 59; RESP 17; TEMP 36.8; O2SAT 94
[2017-07-30] MEDS: Atorvastatin Calcium 40 MG Tablet PO (19:50)
[2017-07-30 19:55] VITALS: BP 141/75; PULSE 59
[2017-07-30] MEDS: LORazepam 0.5 MG Tablet PO (21:20)
--- NOTE | 2017-07-31 00:26 | NURSING ---
c/o tenderness under right ear lobe (mastoid area) - tenderness increases with palpation. Warm compress applyied with some relief. Will monitor
[2017-07-31 06:58] VITALS: O2SAT 94
--- NOTE | 2017-07-31 07:35 | CT_ITS ---
STUDY: CT TEMPORAL BONES WITHOUT CONTRAST - ATTN: I.A.C. S REASON FOR EXAM: Male, 52 years old. Mastoiditis. Swelling/pain below right ear. RADIATION DOSAGE (If Supplied By Facility): CTDIvol = ( 82.28 ) mGy, DLP = ( 1397.59 ) mGycm TECHNIQUE: The patient was scanned in a multi detector CT scanner. Transaxial imaging was performed without the administration of intravenous contrast material. Sagittal and coronal images were reconstructed. Individualized dose optimization techniques were used for this CT. COMPARISON: None. FINDINGS: RIGHT TEMPORAL BONE Normal right internal auditory canal. Normal visualized ossicles and tympanic cavity. Normal right cochlea and semicircular canals. Normal vestibular aqueduct. Normal right petrous carotid artery. Normal right jugular fossa. Normal right mastoid air cells. Normal right petrous apex. LEFT TEMPORAL BONE Normal left internal auditory canal. Normal visualized ossicles and tympanic cavity. Normal left cochlea and semicircular canals. Normal vestibular aqueduct. Normal left petrous carotid artery. Normal right jugular fossa. Normal left mastoid air cells. Normal left petrous apex. CT/Orb Sella Post Fossa Ear w/o IMPRESSION: 1. Normal unenhanced CT examination of the bilateral temporal bones (I.A.C.'s). 2. No CT evidence of mastoiditis. Electronically Signed: Clif Thomas MD at 9:18 EDT , Service support ,
[2017-07-31 08:13] VITALS: BP 154/92; PULSE 63; RESP 18; TEMP 36.6; O2SAT 91
[2017-07-31] MEDS: Clopidogrel Bisulfate 75 MG Tablet PO (08:39)
[2017-07-31 08:40] VITALS: BP 154/92; PULSE 63
[2017-07-31] MEDS: Nystatin Powder 15gm Bottle 1 APPLIC TOPICAL ×2 (14:00→20:06)
[2017-07-31 14:12] VITALS: BMI 48.4
--- NOTE | 2017-07-31 14:15 | NURSING ---
Pt showered with assist, tolerated well. applied nystatin powder to abd folds/inner thighs, applied neosporin to L. outer abd skin fold cyst area is clean, dry, intact, no drainage noted.
--- NOTE | 2017-07-31 16:32 | NURSING ---
Pt. walked to and from room 402 to multi purpose area with 2 assist, vision impaired, unsteady gait, did nustep w/o any issues.
[2017-07-31 20:00] VITALS: BP 161/99; PULSE 68; RESP 18; TEMP 36.8; O2SAT 94
[2017-07-31] MEDS: Atorvastatin Calcium 40 MG Tablet PO (20:03)
[2017-07-31 20:05] VITALS: BP 161/99; PULSE 69
[2017-07-31 20:11] VITALS: RESP 18
[2017-07-31] MEDS: LORazepam 0.5 MG Tablet PO (22:22)
[2017-08-01 06:36] LABS: Bedside Glucose 137 mg/dL (70-110)
[2017-08-01 08:22] VITALS: BP 155/100; PULSE 81; RESP 20; TEMP 36.5; O2SAT 93
[2017-08-01 08:36] VITALS: BP 155/100; PULSE 81
[2017-08-01] MEDS: Clopidogrel Bisulfate 75 MG Tablet PO (08:45)
[2017-08-01] MEDS: Nystatin Powder 15gm Bottle 1 APPLIC TOPICAL ×2 (08:53→21:26)
--- NOTE | 2017-08-01 10:20 | PCM.PN.NEU ---
Subjective: Patient seen and examined, continues to have some right jaw and ear pain. The TM is pearly reid, there is some redness in the ear canal it self, there is a tender area and a lump just below the ear in the parotid gland area. ENT has been consulted and will see him today. He is tolerating therapy. no issues with GI/. - Physical Exam General: Alert, Oriented x3, Cooperative HEENT: Atraumatic, PERRLA, EOMI, Normocephalic Neck: Supple, No JVD, Negative Carotid Bruits Lungs: Clear to auscultation, Normal air movement Cardiovascular: Regular rate, No murmurs Abdomen: Bowel Sounds Present, Soft, Non Tender Extremities: No edema, Capillary Refill Less than 3 Seconds Skin: No rashes, No breakdown Musculoskeletal: No Tenderness to Palpation of Joints or Extremities Neurological: Cranial nerves II-XII grossly intact Psych/Mental Status: Normal Affect, Appropriate, Alert and oriented to time, place, person, mood and affect Vital Signs Temp Pulse Resp BP Pulse Ox 97.7 F L 81 20 H 155/100 H 93 08/01/17 08:22 08/01/17 08:36 08/01/17 08:22 08/01/17 08:36 08/01/17 08:22 Oxygen Delivery Method Room Air Weight: 131.9 kg Body Mass Index (BMI) 48.4 Finger Stick Blood Glucose 173 Intake and Output for Last 24 Hours 07/30/17 07/31/17 08/01/17 23:59 23:59 23:59 Intake Total 680 / 680 120 / 120 Output Total 600 / 600 300 / 300 500 / 500 Balance -600 / -600 380 / 380 -380 / -380 POC Glucose 08/01/17 06:28 POC Glucose 137 H Active Medications Amlodipine Besylate (Norvasc) 10 mg PO DAILY [facility] Last Admin: 08/01/17 08:38 Dose: Not Given Atorvastatin Calcium (Lipitor) 40 mg PO QHS [facility] Last Admin: 07/31/17 20:03 Dose: 40 mg Bisacodyl (Dulcolax) 10 mg RECTAL .PRN X 1 PRN PRN Reason: Constipation Clopidogrel Bisulfate (Plavix) 75 mg PO DAILY [facility] Last Admin: 08/01/17 08:45 Dose: 75 mg Lisinopril (Zestril) 10 mg PO DAILY [facility] Last Admin: 08/01/17 08:39 Dose: Not Given Lorazepam (Ativan) 0.5 mg PO QHS PRN PRN PRN Reason: Insomnia Last Admin: 07/31/17 22:22 Dose: 0.5 mg Magnesium Hydroxide (Milk Of Magnesia) 30 ml PO .PRN X 1 PRN PRN Reason: Constipation Metoprolol Tartrate (Lopressor (Beta Jaleel)) 100 mg PO BID [facility] Last Admin: 08/01/17 08:36 Dose: Not Given Neomycin/Polymyxin/Bacitracin (Neosporin Packet) 1 packet TOPICAL BID [facility] PRN Reason: Protocol Last Admin: 08/01/17 08:53 Dose: 1 packet Nystatin (Mycostatin Powder) 1 applic TOPICAL BID [facility] PRN Reason: Protocol Last Admin: 08/01/17 08:53 Dose: 1 dose Senna/Docusate Sodium (Senokot-S, Latricia-Colace) 2 tablet PO BID [facility] Last Admin: 08/01/17 08:54 Dose: Not Given Medical Necessity - Tobacco Use Smoking Status: Former smoker Tobacco Use: Cigarettes Assessment/Plan 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 Complicated by obstructive sleep apnea and hypertension. Goal of rehab is uatsdin of prior level of functional independence. Plan: Physical therapy for gait and balance Occupational Therapy for ADLs Bowel protocol As needed analgesics DVT prophylaxis: Lovenox Blood pressure control Obstructive sleep apnea: Currently on home BiPAP, which she is tolerating. He will need an outpatient sleep study ever since his last study was greater than 4 years ago.
--- NOTE | 2017-08-01 10:34 | PN.NEURO_ITS ---
Subjective: Patient seen and examined, continues to have some right jaw and ear pain. The TM is pearly reid, there is some redness in the ear canal it self, there is a tender area and a lump just below the ear in the parotid gland area. ENT has been consulted and will see him today. He is tolerating therapy. no issues with GI/. - Physical Exam General: Alert, Oriented x3, Cooperative HEENT: Atraumatic, PERRLA, EOMI, Normocephalic Neck: Supple, No JVD, Negative Carotid Bruits Lungs: Clear to auscultation, Normal air movement Cardiovascular: Regular rate, No murmurs Abdomen: Bowel Sounds Present, Soft, Non Tender Extremities: No edema, Capillary Refill Less than 3 Seconds Skin: No rashes, No breakdown Musculoskeletal: No Tenderness to Palpation of Joints or Extremities Neurological: Cranial nerves II-XII grossly intact Psych/Mental Status: Normal Affect, Appropriate, Alert and oriented to time, place, person, mood and affect Vital Signs Temp Pulse Resp BP Pulse Ox 97.7 F L 81 20 H 155/100 H 93 08/01/17 08:22 08/01/17 08:36 08/01/17 08:22 08/01/17 08:36 08/01/17 08:22 Oxygen Delivery Method Room Air Weight: 131.9 kg Body Mass Index (BMI) 48.4 Finger Stick Blood Glucose 173 Intake and Output for Last 24 Hours 07/30/17 07/31/17 08/01/17 23:59 23:59 23:59 Intake Total 680 / 680 120 / 120 Output Total 600 / 600 300 / 300 500 / 500 Balance -600 / -600 380 / 380 -380 / -380 POC Glucose 08/01/17 06:28 POC Glucose 137 H Active Medications Amlodipine Besylate (Norvasc) 10 mg PO DAILY [facility] Last Admin: 08/01/17 08:38 Dose: Not Given Atorvastatin Calcium (Lipitor) 40 mg PO QHS [facility] Last Admin: 07/31/17 20:03 Dose: 40 mg Bisacodyl (Dulcolax) 10 mg RECTAL .PRN X 1 PRN PRN Reason: Constipation Clopidogrel Bisulfate (Plavix) 75 mg PO DAILY [facility] Last Admin: 08/01/17 08:45 Dose: 75 mg Lisinopril (Zestril) 10 mg PO DAILY [facility] Last Admin: 08/01/17 08:39 Dose: Not Given Lorazepam (Ativan) 0.5 mg PO QHS PRN PRN PRN Reason: Insomnia Last Admin: 07/31/17 22:22 Dose: 0.5 mg Magnesium Hydroxide (Milk Of Magnesia) 30 ml PO .PRN X 1 PRN PRN Reason: Constipation Metoprolol Tartrate (Lopressor (Beta Jaleel)) 100 mg PO BID [facility] Last Admin: 08/01/17 08:36 Dose: Not Given Neomycin/Polymyxin/Bacitracin (Neosporin Packet) 1 packet TOPICAL BID [facility] PRN Reason: Protocol Last Admin: 08/01/17 08:53 Dose: 1 packet Nystatin (Mycostatin Powder) 1 applic TOPICAL BID [facility] PRN Reason: Protocol Last Admin: 08/01/17 08:53 Dose: 1 dose Senna/Docusate Sodium (Senokot-S, Latricia-Colace) 2 tablet PO BID [facility] Last Admin: 08/01/17 08:54 Dose: Not Given Medical Necessity - Tobacco Use Smoking Status: Former smoker Tobacco Use: Cigarettes Assessment/Plan 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 Complicated by obstructive sleep apnea and hypertension. Goal of rehab is nondenominational of prior level of functional independence. Plan: Physical therapy for gait and balance Occupational Therapy for ADLs Bowel protocol As needed analgesics DVT prophylaxis: Lovenox Blood pressure control Obstructive sleep apnea: Currently on home BiPAP, which she is tolerating. He will need an outpatient sleep study ever since his last study was greater than 4 years ago.
[2017-08-01 11:16] VITALS: BMI 48.4
--- NOTE | 2017-08-01 11:49 | NURSING ---
dr conroy consulted and will see patient today for right ear pain and raised reddened area below right ear.
--- NOTE | 2017-08-01 17:53 | NURSING ---
dr conroy here to see patient new orders received.
--- NOTE | 2017-08-01 17:59 | CON.PCM_ITS ---
Problem List (1) Acute sialoadenitis Status: Acute (2) Thrush, oral Status: Acute Reason for Consult Date of Consultation: 08/01/17 Reason for Consultation: swelling around right ear History of Present Illness: The patient is a 52 year old M who presents after CVA for rehab. He reports that since this Tuesday at the time of his admission he has had progressive redness swelling and tenderness anterior to the right ear. This is worse with eating or chewing where it becomes swollen and tender. He denies prior occurrence. He has not noticed anything other than the eating making it better or worse. He describes the pain is moderate to severe. He denies significant dysphagia or anorexia. He reports that otherwise he is making a good recovery. [] Past Medical History Past Medical History (Chronic Problems): Chronic Problems Hypertension (Chronic) Morbid obesity with BMI of 45.0-49.9, adult (Chronic) Sleep apnea (Chronic) On BiPAP at night 04/04 Coronary artery disease (Chronic) Status post PTCA and stents ?4, last in 2011 Allergies abciximab [From Reopro] Allergy (Verified 07/27/17 13:11) SEVERE THROMBOCYTOPENIA Home Medications: Ambulatory Orders Medication Instructions Recorded Amlodipine [Norvasc] 10 mg PO DAILY 07/27/17 Metoprolol Tartrate [Lopressor 100 mg PO BID 07/27/17 (beta fatimah)] Atorvastatin Calcium [Lipitor] 40 mg PO QHS 07/29/17 Clopidogrel Bisulfate [Plavix] 75 mg PO DAILY 07/29/17 Lisinopril [Zestril] 5 mg PO DAILY 07/29/17 Lives: Spouse/ Significant Other Smoking Status: Former smoker Tobacco Use: Cigarettes - *Family History Maternal History Items: No pertinent history, - - No stroke Review of Systems Constitutional: Denies: Chills, Fever, Weight Change Eyes: Denies: Blurred vision, Cataracts HEENT: Reports: Ear Pain, - - swelling anterior to right ear over cheek. Denies : Difficulty Hearing, Difficulty Swallowing, Dysphasia, Sinus Drainage, Sore Throat Respiratory: Denies: Cough, Hemoptysis Gastrointestinal: Denies: Abdominal Pain, Diarrhea Skin: Denies: Dryness, Pruritis Neurological: Denies: Balance problems Psychiatric: Denies: Anxiety Patient Problems: Active and Suspected Problems Acute sialoadenitis (Acute) Thrush, oral (Acute) Subjective: A well-appearing male sitting at the bedside eating his dinner. - Physical Exam General: Alert, Oriented x3, Cooperative, No apparent distress HEENT: Atraumatic, Normocephalic, EAC Clear, - - patch over right eye Oral: No Gingival or Mucosal Lesions/ Ulcerations, Dry Mucosa, - - salivary flow , tender swelling of right parotid gland, diffuse thrush at oral commisures Neck: Supple, No Nodes, No Nuchal Rigidity, Trachea Midline, Thyroid Normal Size and Texture Lungs: Normal air movement Cardiovascular: Regular rate, Regular Rhythm Abdomen: Non Tender, Obese Skin: No rashes Lymphatic: - - no cervical adenopathy Psych/Mental Status: Normal Affect, Appropriate, Alert and oriented to time, place, person, mood and affect Vital Signs Temp Pulse Resp BP Pulse Ox 97.7 F L 81 20 H 155/100 H 93 08/01/17 08:22 08/01/17 08:36 08/01/17 08:22 08/01/17 08:36 08/01/17 08:22 Oxygen Delivery Method Room Air Weight: 131.9 kg Body Mass Index (BMI) 48.4 Finger Stick Blood Glucose 173 Intake and Output for Last 24 Hours 07/30/17 07/31/17 08/01/17 23:59 23:59 23:59 Intake Total 680 / 680 120 / 120 Output Total 600 / 600 300 / 300 500 / 500 Balance -600 / -600 380 / 380 -380 / -380 POC Glucose 08/01/17 06:28 POC Glucose 137 H Assessment/Plan Active and Suspected Problems Acute sialoadenitis (Acute) Thrush, oral (Acute) Mushtaq is a 52-year-old male status post CVA admitted to rehab. He has had progressive swelling of the right parotid consistent with acute parotitis. There is not significant purulent discharge on massage of the gland. I have recommended oral hygiene, sialagogues, warm compress, and attention to hydration in the hopes of resolution as well as antibiotic therapy to cover the usual oral microbes. Additionally he is noted to have thrush at the oral commissures and a note nystatin on his medication list suggesting treatment for this is already been initiated. I have started him on Augmentin oral antibiotic therapy for the salivary gland swelling. I would anticipate resolution with treatment as described however should this fail to resolve or worsen please feel free to call me back for additional assessment. Discussed with the patient and nursing staff that this is not uncommon in the setting of acute illness and impaired oral intake and dehydration and ongoing attention to oral hygiene and hydration general result in resolution of this complaint.
[2017-08-01 19:16] VITALS: BP 152/80; PULSE 74; RESP 20; TEMP 36.8; O2SAT 95
[2017-08-01 21:27] VITALS: BP 152/80; PULSE 74
[2017-08-01] MEDS: Atorvastatin Calcium 40 MG Tablet PO (21:27)
[2017-08-01] MEDS: Amox/Clavulanate 875 MG Tablet PO (21:27)
[2017-08-01] MEDS: LORazepam 0.5 MG Tablet PO (22:18)
--- NOTE | 2017-08-02 05:15 | NURSING ---
PT WITH MILD FRONTAL SHARMA THAT LESSENS DURING SHOWER.
--- NOTE | 2017-08-02 06:05 | NURSING ---
PT WAKES FROM DOZING TO VOICE. REPORTS SHARMA IS GONE. COFFEE PROVIDED PER REQUEST.
[2017-08-02 07:36] VITALS: BP 157/108; PULSE 74; RESP 18; TEMP 36.7; O2SAT 93
[2017-08-02] MEDS: Amox/Clavulanate 875 MG Tablet PO ×2 (07:38→20:43)
[2017-08-02] MEDS: Clopidogrel Bisulfate 75 MG Tablet PO (07:38)
[2017-08-02 07:39] VITALS: BP 157/108
[2017-08-02] MEDS: Nystatin Powder 15gm Bottle 1 APPLIC TOPICAL ×2 (07:39→20:41)
[2017-08-02 08:47] VITALS: BMI 48.4
[2017-08-02 12:59] VITALS: BP 150/101; PULSE 82
--- NOTE | 2017-08-02 14:10 | PN.NEURO_ITS ---
Patient Problems: Active and Suspected Problems Acute sialoadenitis (Acute) Thrush, oral (Acute) Subjective: Patient seen and examined. No new complaints, was seen by the ENT today for the pain in his right ear and jaw line. Was started on Augmentin 875mg BID. Tolerating therapy. Denies any shortness of breath or chest. No issues with GI/ . - Physical Exam General: Alert, Oriented x3, Cooperative HEENT: Atraumatic, PERRLA, EOMI, Normocephalic Neck: Supple, No JVD, Negative Carotid Bruits Lungs: Clear to auscultation, Normal air movement Cardiovascular: Regular rate, No murmurs Abdomen: Bowel Sounds Present, Soft, Non Tender Extremities: No edema, Capillary Refill Less than 3 Seconds Skin: No rashes, No breakdown Musculoskeletal: No Tenderness to Palpation of Joints or Extremities Neurological: Cranial nerves II-XII grossly intact Psych/Mental Status: Normal Affect, Appropriate, Alert and oriented to time, place, person, mood and affect Vital Signs Temp Pulse Resp BP Pulse Ox 98.1 F 82 18 150/101 H 93 08/02/17 07:36 08/02/17 12:59 08/02/17 07:36 08/02/17 12:59 08/02/17 07:36 Oxygen Delivery Method Room Air Weight: 131.9 kg Body Mass Index (BMI) 48.4 Finger Stick Blood Glucose 173 Intake and Output for Last 24 Hours 07/31/17 08/01/17 08/02/17 23:59 23:59 23:59 Intake Total 680 / 680 120 / 120 240 / 240 Output Total 300 / 300 500 / 500 Balance 380 / 380 -380 / -380 240 / 240 Active Medications Acetaminophen (Tylenol) 650 mg PO Q6H PRN PRN PRN Reason: PAIN Amlodipine Besylate (Norvasc) 10 mg PO DAILY [facility] Last Admin: 08/02/17 07:40 Dose: Not Given Amoxicillin/Clavulanate Potassium (Augmentin Tablet) 875 mg PO BID [facility] Last Admin: 08/02/17 07:38 Dose: 875 mg Atorvastatin Calcium (Lipitor) 40 mg PO QHS [facility] Last Admin: 08/01/17 21:27 Dose: 40 mg Bisacodyl (Dulcolax) 10 mg RECTAL .PRN X 1 PRN PRN Reason: Constipation Clopidogrel Bisulfate (Plavix) 75 mg PO DAILY [facility] Last Admin: 08/02/17 07:38 Dose: 75 mg Lisinopril (Zestril) 10 mg PO DAILY [facility] Last Admin: 08/02/17 07:40 Dose: Not Given Lorazepam (Ativan) 0.5 mg PO QHS PRN PRN PRN Reason: Insomnia Last Admin: 08/01/17 22:18 Dose: 0.5 mg Magnesium Hydroxide (Milk Of Magnesia) 30 ml PO .PRN X 1 PRN PRN Reason: Constipation Metoprolol Tartrate (Lopressor (Beta Jaleel)) 100 mg PO BID [facility] Last Admin: 08/02/17 07:39 Dose: Not Given Neomycin/Polymyxin/Bacitracin (Neosporin Packet) 1 packet TOPICAL BID [facility] PRN Reason: Protocol Last Admin: 08/02/17 07:39 Dose: 1 packet Nystatin (Mycostatin Powder) 1 applic TOPICAL BID [facility] PRN Reason: Protocol Last Admin: 08/02/17 07:39 Dose: 1 applicatio Senna/Docusate Sodium (Senokot-S, Latricia-Colace) 2 tablet PO BID [facility] Last Admin: 08/02/17 07:40 Dose: Not Given Medical Necessity - Tobacco Use Smoking Status: Former smoker Tobacco Use: Cigarettes Assessment/Plan Active and Suspected Problems Acute sialoadenitis (Acute) Thrush, oral (Acute) 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 Complicated by obstructive sleep apnea and hypertension. Goal of rehab is anabaptist of prior level of functional independence. Plan: Physical therapy for gait and balance Occupational Therapy for ADLs Bowel protocol As needed analgesics DVT prophylaxis: Lovenox Blood pressure control Obstructive sleep apnea: Currently on home BiPAP, which she is tolerating. He will need an outpatient sleep study ever since his last study was greater than 4 years ago. Started on Augmentin 875mg BID for swollen salivary gland
[2017-08-02 19:32] VITALS: BP 151/97; PULSE 77; RESP 18; TEMP 36.7; O2SAT 94
[2017-08-02 20:36] VITALS: BMI 48.4
[2017-08-02] MEDS: Acetaminophen 325 MG Tablet 650 MG PO (20:40)
[2017-08-02 20:42] VITALS: BP 151/97; PULSE 77
[2017-08-02] MEDS: Atorvastatin Calcium 40 MG Tablet PO (20:43)
[2017-08-02] MEDS: LORazepam 0.5 MG Tablet PO (21:16)
[2017-08-03] MEDS: Nystatin Powder 15gm Bottle 1 APPLIC TOPICAL ×2 (06:26→20:20)
[2017-08-03 08:21] VITALS: PULSE 81; RESP 20; TEMP 36.6; O2SAT 96
[2017-08-03] MEDS: Amox/Clavulanate 875 MG Tablet PO ×2 (09:14→20:16)
[2017-08-03] MEDS: Clopidogrel Bisulfate 75 MG Tablet PO (09:14)
[2017-08-03 09:20] VITALS: BP 140/100
--- NOTE | 2017-08-03 09:35 | PCM.PN.NEU ---
Patient Problems: Active and Suspected Problems Acute sialoadenitis (Acute) Thrush, oral (Acute) Subjective: Patient seen and examined. No new complaints, jaw and ear is feeling better not as painful, still slightly swollen, currently he is on Augmentin. Tolerating therapy. Denies any shortness of breath, or chest pains, any headaches or dizziness. Tolerating regular diet. No issues with GI/. - Physical Exam General: Alert, Oriented x3, Cooperative HEENT: Atraumatic, PERRLA, EOMI, Normocephalic Neck: Supple, No JVD, Negative Carotid Bruits Lungs: Clear to auscultation, Normal air movement Cardiovascular: Regular rate, No murmurs Abdomen: Bowel Sounds Present, Soft, Non Tender Extremities: No edema, Capillary Refill Less than 3 Seconds Skin: No rashes, No breakdown Musculoskeletal: No Tenderness to Palpation of Joints or Extremities Neurological: Cranial nerves II-XII grossly intact, - - has dysarthria, right sided discoordination and mild right-sided weakness Psych/Mental Status: Normal Affect, Appropriate, Alert and oriented to time, place, person, mood and affect Vital Signs Temp Pulse Resp BP Pulse Ox 97.9 F 81 20 H 140/100 H 96 08/03/17 08:21 08/03/17 08:21 08/03/17 08:21 08/03/17 09:20 08/03/17 08:21 Oxygen Delivery Method Room Air Weight: 127.063 kg Body Mass Index (BMI) 48.4 Finger Stick Blood Glucose 173 Intake and Output for Last 24 Hours 08/01/17 08/02/17 08/03/17 23:59 23:59 23:59 Intake Total 120 / 120 480 / 480 Output Total 500 / 500 550 / 550 Balance -380 / -380 -70 / -70 Active Medications Acetaminophen (Tylenol) 650 mg PO Q6H PRN PRN PRN Reason: PAIN Last Admin: 08/02/17 20:40 Dose: 650 mg Amlodipine Besylate (Norvasc) 10 mg PO DAILY [facility] Last Admin: 08/02/17 07:40 Dose: Not Given Amoxicillin/Clavulanate Potassium (Augmentin Tablet) 875 mg PO BID [facility] Last Admin: 08/03/17 09:14 Dose: 875 mg Atorvastatin Calcium (Lipitor) 40 mg PO QHS [facility] Last Admin: 08/02/17 20:43 Dose: 40 mg Bisacodyl (Dulcolax) 10 mg RECTAL .PRN X 1 PRN PRN Reason: Constipation Clopidogrel Bisulfate (Plavix) 75 mg PO DAILY [facility] Last Admin: 08/03/17 09:14 Dose: 75 mg Lisinopril (Zestril) 10 mg PO DAILY [facility] Last Admin: 08/02/17 07:40 Dose: Not Given Lorazepam (Ativan) 0.5 mg PO QHS PRN PRN PRN Reason: Insomnia Last Admin: 08/02/17 21:16 Dose: 0.5 mg Magnesium Hydroxide (Milk Of Magnesia) 30 ml PO .PRN X 1 PRN PRN Reason: Constipation Metoprolol Tartrate (Lopressor (Beta Jaleel)) 100 mg PO BID [facility] Last Admin: 08/02/17 20:42 Dose: Not Given Neomycin/Polymyxin/Bacitracin (Neosporin Packet) 1 packet TOPICAL 0600,2200 [facility] PRN Reason: Protocol Last Admin: 08/03/17 06:26 Dose: 1 packet Nystatin (Mycostatin Powder) 1 applic TOPICAL 0600,2200 [facility] PRN Reason: Protocol Last Admin: 08/03/17 06:26 Dose: 1 applicatio Senna/Docusate Sodium (Senokot-S, Latricia-Colace) 2 tablet PO BID [facility] Last Admin: 08/03/17 09:14 Dose: Not Given Medical Necessity - Tobacco Use Smoking Status: Former smoker Tobacco Use: Cigarettes Assessment/Plan Active and Suspected Problems Acute sialoadenitis (Acute) Thrush, oral (Acute) 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 Complicated by obstructive sleep apnea and hypertension. Goal of rehab is pentecostalism of prior level of functional independence. Plan: Physical therapy for gait and balance Occupational Therapy for ADLs Bowel protocol As needed analgesics DVT prophylaxis: Lovenox Blood pressure control Obstructive sleep apnea: Currently on home BiPAP, which she is tolerating. He will need an outpatient sleep study ever since his last study was greater than 4 years ago. Started on Augmentin 875mg BID for swollen salivary gland
--- NOTE | 2017-08-03 09:49 | PN.NEURO_ITS ---
Patient Problems: Active and Suspected Problems Acute sialoadenitis (Acute) Thrush, oral (Acute) Subjective: Patient seen and examined. No new complaints, jaw and ear is feeling better not as painful, still slightly swollen, currently he is on Augmentin. Tolerating therapy. Denies any shortness of breath, or chest pains, any headaches or dizziness. Tolerating regular diet. No issues with GI/. - Physical Exam General: Alert, Oriented x3, Cooperative HEENT: Atraumatic, PERRLA, EOMI, Normocephalic Neck: Supple, No JVD, Negative Carotid Bruits Lungs: Clear to auscultation, Normal air movement Cardiovascular: Regular rate, No murmurs Abdomen: Bowel Sounds Present, Soft, Non Tender Extremities: No edema, Capillary Refill Less than 3 Seconds Skin: No rashes, No breakdown Musculoskeletal: No Tenderness to Palpation of Joints or Extremities Neurological: Cranial nerves II-XII grossly intact, - - has dysarthria, right sided discoordination and mild right-sided weakness Psych/Mental Status: Normal Affect, Appropriate, Alert and oriented to time, place, person, mood and affect Vital Signs Temp Pulse Resp BP Pulse Ox 97.9 F 81 20 H 140/100 H 96 08/03/17 08:21 08/03/17 08:21 08/03/17 08:21 08/03/17 09:20 08/03/17 08:21 Oxygen Delivery Method Room Air Weight: 127.063 kg Body Mass Index (BMI) 48.4 Finger Stick Blood Glucose 173 Intake and Output for Last 24 Hours 08/01/17 08/02/17 08/03/17 23:59 23:59 23:59 Intake Total 120 / 120 480 / 480 Output Total 500 / 500 550 / 550 Balance -380 / -380 -70 / -70 Active Medications Acetaminophen (Tylenol) 650 mg PO Q6H PRN PRN PRN Reason: PAIN Last Admin: 08/02/17 20:40 Dose: 650 mg Amlodipine Besylate (Norvasc) 10 mg PO DAILY [facility] Last Admin: 08/02/17 07:40 Dose: Not Given Amoxicillin/Clavulanate Potassium (Augmentin Tablet) 875 mg PO BID [facility] Last Admin: 08/03/17 09:14 Dose: 875 mg Atorvastatin Calcium (Lipitor) 40 mg PO QHS [facility] Last Admin: 08/02/17 20:43 Dose: 40 mg Bisacodyl (Dulcolax) 10 mg RECTAL .PRN X 1 PRN PRN Reason: Constipation Clopidogrel Bisulfate (Plavix) 75 mg PO DAILY [facility] Last Admin: 08/03/17 09:14 Dose: 75 mg Lisinopril (Zestril) 10 mg PO DAILY [facility] Last Admin: 08/02/17 07:40 Dose: Not Given Lorazepam (Ativan) 0.5 mg PO QHS PRN PRN PRN Reason: Insomnia Last Admin: 08/02/17 21:16 Dose: 0.5 mg Magnesium Hydroxide (Milk Of Magnesia) 30 ml PO .PRN X 1 PRN PRN Reason: Constipation Metoprolol Tartrate (Lopressor (Beta Jaleel)) 100 mg PO BID [facility] Last Admin: 08/02/17 20:42 Dose: Not Given Neomycin/Polymyxin/Bacitracin (Neosporin Packet) 1 packet TOPICAL 0600,2200 [facility] PRN Reason: Protocol Last Admin: 08/03/17 06:26 Dose: 1 packet Nystatin (Mycostatin Powder) 1 applic TOPICAL 0600,2200 [facility] PRN Reason: Protocol Last Admin: 08/03/17 06:26 Dose: 1 applicatio Senna/Docusate Sodium (Senokot-S, Latricia-Colace) 2 tablet PO BID [facility] Last Admin: 08/03/17 09:14 Dose: Not Given Medical Necessity - Tobacco Use Smoking Status: Former smoker Tobacco Use: Cigarettes Assessment/Plan Active and Suspected Problems Acute sialoadenitis (Acute) Thrush, oral (Acute) 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 Complicated by obstructive sleep apnea and hypertension. Goal of rehab is voodoo of prior level of functional independence. Plan: Physical therapy for gait and balance Occupational Therapy for ADLs Bowel protocol As needed analgesics DVT prophylaxis: Lovenox Blood pressure control Obstructive sleep apnea: Currently on home BiPAP, which she is tolerating. He will need an outpatient sleep study ever since his last study was greater than 4 years ago. Started on Augmentin 875mg BID for swollen salivary gland
[2017-08-03 10:20] VITALS: PULSE 81
--- NOTE | 2017-08-03 15:31 | PCM.PN.HOSP ---
Patient Problems: Active and Suspected Problems Acute sialoadenitis (Acute) Thrush, oral (Acute) Subjective: still with diplopia. patching eyes (alternating). Vitals/I&O's: Vital Signs Temp Pulse Resp BP Pulse Ox 36.6 C 81 20 H 140/100 H 96 08/03/17 08:21 08/03/17 10:20 08/03/17 08:21 08/03/17 09:20 08/03/17 08:21 Oxygen Delivery Method Room Air Weight: 127.063 kg Body Mass Index (BMI) 48.4 Finger Stick Blood Glucose 173 Intake and Output for Last 24 Hours 08/01/17 08/02/17 08/03/17 23:59 23:59 23:59 Intake Total 120 / 120 480 / 480 Output Total 500 / 500 550 / 550 Balance -380 / -380 -70 / -70 General: Alert, Cooperative, No apparent distress HEENT: Atraumatic, Normocephalic, - - ambliopia. EOMI intact on right limited on left. Oral: Moist Mucosa Neck: No Nodes, Thyroid Normal Size and Texture Lungs: Clear to auscultation, Normal air movement, No rhonchi, No wheeze Cardiovascular: Regular rate, Regular Rhythm, Normal S1, Normal S2, No murmurs Abdomen: Bowel Sounds Present, Soft, Non Tender, Non-Distended, No Hepato-splenomegaly Extremities: No edema, No Calf Tenderness Current Medications Acetaminophen (Tylenol) 650 mg PO Q6H PRN PRN PRN Reason: PAIN Last Admin: 08/02/17 20:40 Dose: 650 mg Amlodipine Besylate (Norvasc) 10 mg PO DAILY [facility] Last Admin: 08/03/17 09:37 Dose: Not Given Amoxicillin/Clavulanate Potassium (Augmentin Tablet) 875 mg PO BID [facility] Last Admin: 08/03/17 09:14 Dose: 875 mg Atorvastatin Calcium (Lipitor) 40 mg PO QHS [facility] Last Admin: 08/02/17 20:43 Dose: 40 mg Bisacodyl (Dulcolax) 10 mg RECTAL .PRN X 1 PRN PRN Reason: Constipation Clopidogrel Bisulfate (Plavix) 75 mg PO DAILY [facility] Last Admin: 08/03/17 09:14 Dose: 75 mg Lisinopril (Zestril) 10 mg PO DAILY [facility] Last Admin: 08/03/17 09:38 Dose: Not Given Lorazepam (Ativan) 0.5 mg PO QHS PRN PRN PRN Reason: Insomnia Last Admin: 08/02/17 21:16 Dose: 0.5 mg Magnesium Hydroxide (Milk Of Magnesia) 30 ml PO .PRN X 1 PRN PRN Reason: Constipation Metoprolol Tartrate (Lopressor (Beta Jaleel)) 100 mg PO BID [facility] Last Admin: 08/03/17 10:20 Dose: Not Given Neomycin/Polymyxin/Bacitracin (Neosporin Packet) 1 packet TOPICAL 0600,2200 [facility] PRN Reason: Protocol Last Admin: 08/03/17 06:26 Dose: 1 packet Nystatin (Mycostatin Powder) 1 applic TOPICAL 0600,2200 [facility] PRN Reason: Protocol Last Admin: 08/03/17 06:26 Dose: 1 applicatio Senna/Docusate Sodium (Senokot-S, Latricia-Colace) 2 tablet PO BID [facility] Last Admin: 08/03/17 09:14 Dose: Not Given Medical Necessity - Tobacco Use Smoking Status: Former smoker Tobacco Use: Cigarettes Assessment/Plan Active and Suspected Problems Acute sialoadenitis (Acute) Thrush, oral (Acute) 1. 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 2. Hypertension: SBP persistently in 150s increase lisinopril from 10 to 20. 3. CAD stable 4. Sialoadenitis started on Augmentin by ENT. Warm compresses. follow up with ENT if recurrs 5. thrush: nystatin. Code Visit Inpatient E&M: 23332 Subs Hosp L2
--- NOTE | 2017-08-03 15:42 | PN_ITS ---
Patient Problems: Active and Suspected Problems Acute sialoadenitis (Acute) Thrush, oral (Acute) Subjective: still with diplopia. patching eyes (alternating). Vitals/I&O's: Vital Signs Temp Pulse Resp BP Pulse Ox 36.6 C 81 20 H 140/100 H 96 08/03/17 08:21 08/03/17 10:20 08/03/17 08:21 08/03/17 09:20 08/03/17 08:21 Oxygen Delivery Method Room Air Weight: 127.063 kg Body Mass Index (BMI) 48.4 Finger Stick Blood Glucose 173 Intake and Output for Last 24 Hours 08/01/17 08/02/17 08/03/17 23:59 23:59 23:59 Intake Total 120 / 120 480 / 480 Output Total 500 / 500 550 / 550 Balance -380 / -380 -70 / -70 General: Alert, Cooperative, No apparent distress HEENT: Atraumatic, Normocephalic, - - ambliopia. EOMI intact on right limited on left. Oral: Moist Mucosa Neck: No Nodes, Thyroid Normal Size and Texture Lungs: Clear to auscultation, Normal air movement, No rhonchi, No wheeze Cardiovascular: Regular rate, Regular Rhythm, Normal S1, Normal S2, No murmurs Abdomen: Bowel Sounds Present, Soft, Non Tender, Non-Distended, No Hepato- splenomegaly Extremities: No edema, No Calf Tenderness Current Medications Acetaminophen (Tylenol) 650 mg PO Q6H PRN PRN PRN Reason: PAIN Last Admin: 08/02/17 20:40 Dose: 650 mg Amlodipine Besylate (Norvasc) 10 mg PO DAILY [facility] Last Admin: 08/03/17 09:37 Dose: Not Given Amoxicillin/Clavulanate Potassium (Augmentin Tablet) 875 mg PO BID [facility] Last Admin: 08/03/17 09:14 Dose: 875 mg Atorvastatin Calcium (Lipitor) 40 mg PO QHS [facility] Last Admin: 08/02/17 20:43 Dose: 40 mg Bisacodyl (Dulcolax) 10 mg RECTAL .PRN X 1 PRN PRN Reason: Constipation Clopidogrel Bisulfate (Plavix) 75 mg PO DAILY [facility] Last Admin: 08/03/17 09:14 Dose: 75 mg Lisinopril (Zestril) 10 mg PO DAILY [facility] Last Admin: 08/03/17 09:38 Dose: Not Given Lorazepam (Ativan) 0.5 mg PO QHS PRN PRN PRN Reason: Insomnia Last Admin: 08/02/17 21:16 Dose: 0.5 mg Magnesium Hydroxide (Milk Of Magnesia) 30 ml PO .PRN X 1 PRN PRN Reason: Constipation Metoprolol Tartrate (Lopressor (Beta Jaleel)) 100 mg PO BID [facility] Last Admin: 08/03/17 10:20 Dose: Not Given Neomycin/Polymyxin/Bacitracin (Neosporin Packet) 1 packet TOPICAL 0600,2200 [facility] PRN Reason: Protocol Last Admin: 08/03/17 06:26 Dose: 1 packet Nystatin (Mycostatin Powder) 1 applic TOPICAL 0600,2200 [facility] PRN Reason: Protocol Last Admin: 08/03/17 06:26 Dose: 1 applicatio Senna/Docusate Sodium (Senokot-S, Latricia-Colace) 2 tablet PO BID [facility] Last Admin: 08/03/17 09:14 Dose: Not Given Medical Necessity - Tobacco Use Smoking Status: Former smoker Tobacco Use: Cigarettes Assessment/Plan Active and Suspected Problems Acute sialoadenitis (Acute) Thrush, oral (Acute) 1. Pontine and medullary CVA * plavix and statin * still with diplopia and alternating patching. 2. Hypertension: * SBP persistently in 150s * increase lisinopril from 10 to 20. 3. CAD stable 4. Sialoadenitis * started on Augmentin by ENT. * Warm compresses. * follow up with ENT if recurrs 5. thrush: nystatin. Code Visit Inpatient E&M: 38087 Subs Hosp L2
[2017-08-03 17:00] VITALS: BMI 48.4
[2017-08-03 20:14] VITALS: BP 147/98; PULSE 87; RESP 18; TEMP 37.1; O2SAT 95
[2017-08-03] MEDS: Atorvastatin Calcium 40 MG Tablet PO (20:16)
[2017-08-03 20:17] VITALS: BP 147/98; PULSE 87
[2017-08-03] MEDS: Acetaminophen 325 MG Tablet 650 MG PO (21:52)
[2017-08-03] MEDS: LORazepam 0.5 MG Tablet PO (21:52)
--- NOTE | 2017-08-04 01:24 | NURSING ---
Reviewed and agree with [employer] documentation and [facility] charting.
[2017-08-04 01:33] VITALS: BMI 48.4
[2017-08-04] MEDS: Nystatin Powder 15gm Bottle 1 APPLIC TOPICAL ×2 (06:26→20:26)
[2017-08-04 08:20] VITALS: BP 155/96; PULSE 86; RESP 18; TEMP 36.8; O2SAT 98
[2017-08-04] MEDS: Acetaminophen 325 MG Tablet 650 MG PO ×2 (08:28→22:17)
--- NOTE | 2017-08-04 10:35 | PCM.PN.NEU ---
Patient Problems: Active and Suspected Problems Acute sialoadenitis (Acute) Thrush, oral (Acute) Subjective: Staffed in team meeting. at bedside. Questions answered. With Physical therapy, patient is able to walk about 50 feet with walker at contact guard, he tends to lean to the right slightly. but is easily corrected. With Occupational therapy, He requires minimal assistance with lower body, needing mostly help with putting on his socks and shoes. He requires minimal assistance with toileting, getting on and off the toilet. With upper body he is able to get his shirt on and off and do his own personal care. With Speech therapy, he is tolerating a regular diet with thin liquids. He does have some slurried speech and they are working on strengthening the muscles of his lips and tongue with oral exercises. He is having some mild memory recall and word retrieve difficulty, but are working on strategies to help with this problem. With Nursing he is on Augmentin 875mg BID, which will end on 08/11 for a swollen salivary gland on his right side, the pain has improved. Will remove the hold parameters on his blood pressure medications he no longer requires permissive high pressures now. Will re-team on of next week. - Physical Exam General: Alert, Oriented x3, Cooperative HEENT: Atraumatic, PERRLA, EOMI, Normocephalic Neck: Supple, No JVD, Negative Carotid Bruits Lungs: Clear to auscultation, Normal air movement Cardiovascular: Regular rate, No murmurs Abdomen: Bowel Sounds Present, Soft, Non Tender Extremities: No edema, Capillary Refill Less than 3 Seconds Skin: No rashes, No breakdown Musculoskeletal: No Tenderness to Palpation of Joints or Extremities Neurological: Cranial nerves II-XII grossly intact, Facial Droop - left side Psych/Mental Status: Normal Affect, Appropriate, Alert and oriented to time, place, person, mood and affect Vital Signs Temp Pulse Resp BP Pulse Ox 98.3 F 86 18 155/96 H 98 08/04/17 08:20 08/04/17 08:20 08/04/17 08:20 08/04/17 08:20 08/04/17 08:20 Oxygen Delivery Method Room Air Weight: 127.063 kg Body Mass Index (BMI) 48.4 Finger Stick Blood Glucose 173 Intake and Output for Last 24 Hours 04/08/03/17 08/04/17 23:59 23:59 23:59 Intake Total 480 / 480 Output Total 550 / 550 Balance -70 / -70 Active Medications Acetaminophen (Tylenol) 650 mg PO Q6H PRN PRN PRN Reason: PAIN Last Admin: 08/04/17 08:28 Dose: 650 mg Amlodipine Besylate (Norvasc) 10 mg PO DAILY [facility] Amoxicillin/Clavulanate Potassium (Augmentin Tablet) 875 mg PO BID [facility] Stop: 08/11/17 10:01 Last Admin: 08/03/17 20:16 Dose: 875 mg Atorvastatin Calcium (Lipitor) 40 mg PO QHS [facility] Last Admin: 08/03/17 20:16 Dose: 40 mg Bisacodyl (Dulcolax) 10 mg RECTAL .PRN X 1 PRN PRN Reason: Constipation Clopidogrel Bisulfate (Plavix) 75 mg PO DAILY [facility] Last Admin: 08/03/17 09:14 Dose: 75 mg Lisinopril (Zestril) 10 mg PO DAILY [facility] Lorazepam (Ativan) 0.5 mg PO QHS PRN PRN PRN Reason: Insomnia Last Admin: 08/03/17 21:52 Dose: 0.5 mg Magnesium Hydroxide (Milk Of Magnesia) 30 ml PO .PRN X 1 PRN PRN Reason: Constipation Metoprolol Tartrate (Lopressor (Beta Jaleel)) 100 mg PO BID [facility] Neomycin/Polymyxin/Bacitracin (Neosporin Packet) 1 packet TOPICAL 0600,2200 [facility] PRN Reason: Protocol Last Admin: 08/04/17 06:27 Dose: 1 packet Nystatin (Mycostatin Powder) 1 applic TOPICAL 0600,2200 [facility] PRN Reason: Protocol Last Admin: 08/04/17 06:26 Dose: 1 applicatio Senna/Docusate Sodium (Senokot-S, Latricia-Colace) 2 tablet PO BID [facility] Last Admin: 08/03/17 20:19 Dose: Not Given Medical Necessity - Tobacco Use Smoking Status: Former smoker Tobacco Use: Cigarettes Assessment/Plan Active and Suspected Problems Acute sialoadenitis (Acute) Thrush, oral (Acute) 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 Complicated by obstructive sleep apnea and hypertension. Goal of rehab is congregation of prior level of functional independence. Plan: Physical therapy for gait and balance Occupational Therapy for ADLs Bowel protocol As needed analgesics DVT prophylaxis: Lovenox Blood pressure control Obstructive sleep apnea: Currently on home BiPAP, which he is tolerating. He will need an outpatient sleep study ever since his last study was greater than 4 years ago. Started on Augmentin 875mg BID for swollen salivary gland
--- NOTE | 2017-08-04 10:40 | CASEMGMT ---
Team meeting held. Patent present as well as patient spouse. No discharge date set at this time. Patient to continue with further care and treatment on the Inpatient Rehab Unit. Patient with insurance update due on this day. Patient aware that continued stay approval is not guaranteed. Patient plans to discharge home with spouse at time of discharge. Support given. Will continue to follow. Karyn NOWAK, MACHINE WEDGER
--- NOTE | 2017-08-04 10:48 | PN.NEURO_ITS ---
Patient Problems: Active and Suspected Problems Acute sialoadenitis (Acute) Thrush, oral (Acute) Subjective: Staffed in team meeting. at bedside. Questions answered. With Physical therapy, patient is able to walk about 50 feet with walker at contact guard, he tends to lean to the right slightly. but is easily corrected. With Occupational therapy, He requires minimal assistance with lower body, needing mostly help with putting on his socks and shoes. He requires minimal assistance with toileting, getting on and off the toilet. With upper body he is able to get his shirt on and off and do his own personal care. With Speech therapy, he is tolerating a regular diet with thin liquids. He does have some slurried speech and they are working on strengthening the muscles of his lips and tongue with oral exercises. He is having some mild memory recall and word retrieve difficulty, but are working on strategies to help with this problem. With Nursing he is on Augmentin 875mg BID, which will end on 08/11 for a swollen salivary gland on his right side, the pain has improved. Will remove the hold parameters on his blood pressure medications he no longer requires permissive high pressures now. Will re-team on of next week. - Physical Exam General: Alert, Oriented x3, Cooperative HEENT: Atraumatic, PERRLA, EOMI, Normocephalic Neck: Supple, No JVD, Negative Carotid Bruits Lungs: Clear to auscultation, Normal air movement Cardiovascular: Regular rate, No murmurs Abdomen: Bowel Sounds Present, Soft, Non Tender Extremities: No edema, Capillary Refill Less than 3 Seconds Skin: No rashes, No breakdown Musculoskeletal: No Tenderness to Palpation of Joints or Extremities Neurological: Cranial nerves II-XII grossly intact, Facial Droop - left side Psych/Mental Status: Normal Affect, Appropriate, Alert and oriented to time, place, person, mood and affect Vital Signs Temp Pulse Resp BP Pulse Ox 98.3 F 86 18 155/96 H 98 08/04/17 08:20 08/04/17 08:20 08/04/17 08:20 08/04/17 08:20 08/04/17 08:20 Oxygen Delivery Method Room Air Weight: 127.063 kg Body Mass Index (BMI) 48.4 Finger Stick Blood Glucose 173 Intake and Output for Last 24 Hours 04/08/03/17 08/04/17 23:59 23:59 23:59 Intake Total 480 / 480 Output Total 550 / 550 Balance -70 / -70 Active Medications Acetaminophen (Tylenol) 650 mg PO Q6H PRN PRN PRN Reason: PAIN Last Admin: 08/04/17 08:28 Dose: 650 mg Amlodipine Besylate (Norvasc) 10 mg PO DAILY [facility] Amoxicillin/Clavulanate Potassium (Augmentin Tablet) 875 mg PO BID [facility] Stop: 08/11/17 10:01 Last Admin: 08/03/17 20:16 Dose: 875 mg Atorvastatin Calcium (Lipitor) 40 mg PO QHS [facility] Last Admin: 08/03/17 20:16 Dose: 40 mg Bisacodyl (Dulcolax) 10 mg RECTAL .PRN X 1 PRN PRN Reason: Constipation Clopidogrel Bisulfate (Plavix) 75 mg PO DAILY [facility] Last Admin: 08/03/17 09:14 Dose: 75 mg Lisinopril (Zestril) 10 mg PO DAILY [facility] Lorazepam (Ativan) 0.5 mg PO QHS PRN PRN PRN Reason: Insomnia Last Admin: 08/03/17 21:52 Dose: 0.5 mg Magnesium Hydroxide (Milk Of Magnesia) 30 ml PO .PRN X 1 PRN PRN Reason: Constipation Metoprolol Tartrate (Lopressor (Beta Jaleel)) 100 mg PO BID [facility] Neomycin/Polymyxin/Bacitracin (Neosporin Packet) 1 packet TOPICAL 0600,2200 [facility] PRN Reason: Protocol Last Admin: 08/04/17 06:27 Dose: 1 packet Nystatin (Mycostatin Powder) 1 applic TOPICAL 0600,2200 [facility] PRN Reason: Protocol Last Admin: 08/04/17 06:26 Dose: 1 applicatio Senna/Docusate Sodium (Senokot-S, Latricia-Colace) 2 tablet PO BID [facility] Last Admin: 08/03/17 20:19 Dose: Not Given Medical Necessity - Tobacco Use Smoking Status: Former smoker Tobacco Use: Cigarettes Assessment/Plan Active and Suspected Problems Acute sialoadenitis (Acute) Thrush, oral (Acute) 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 Complicated by obstructive sleep apnea and hypertension. Goal of rehab is jainism of prior level of functional independence. Plan: Physical therapy for gait and balance Occupational Therapy for ADLs Bowel protocol As needed analgesics DVT prophylaxis: Lovenox Blood pressure control Obstructive sleep apnea: Currently on home BiPAP, which he is tolerating. He will need an outpatient sleep study ever since his last study was greater than 4 years ago. Started on Augmentin 875mg BID for swollen salivary gland
[2017-08-04 10:52] VITALS: BP 155/96; PULSE 86
[2017-08-04] MEDS: amLODIPine 10 MG Tablet PO (10:52)
[2017-08-04] MEDS: Metoprolol Tartrate 100 MG Tablet PO ×2 (10:52→20:25)
[2017-08-04] MEDS: Lisinopril 10 MG Tablet PO (10:52)
[2017-08-04] MEDS: Amox/Clavulanate 875 MG Tablet PO ×2 (10:53→20:25)
[2017-08-04] MEDS: Clopidogrel Bisulfate 75 MG Tablet PO (10:53)
--- NOTE | 2017-08-04 14:08 | CASEMGMT ---
Insurance Clinical information faxed. Pending continued stay approval at this time. Auth#[id number] Karyn NOWAK, DYE EXPERT
[2017-08-04 16:09] VITALS: BMI 48.4
[2017-08-04 20:23] VITALS: BP 119/72; PULSE 63; RESP 18; O2SAT 94
[2017-08-04 20:25] VITALS: BP 119/72; PULSE 63
[2017-08-04] MEDS: Atorvastatin Calcium 40 MG Tablet PO (20:25)
[2017-08-04] MEDS: LORazepam 0.5 MG Tablet PO (22:17)
[2017-08-05 02:33] VITALS: BMI 48.4
--- NOTE | 2017-08-05 03:19 | NURSING ---
Reviewed and agree with TELEVISION RECEIVER ANALYZER documentation and FIMs charting.
[2017-08-05] MEDS: Nystatin Powder 15gm Bottle 1 APPLIC TOPICAL ×2 (05:58→20:20)
[2017-08-05] MEDS: Clopidogrel Bisulfate 75 MG Tablet PO (07:56)
[2017-08-05] MEDS: Amox/Clavulanate 875 MG Tablet PO ×2 (07:57→20:18)
[2017-08-05 08:25] VITALS: BP 139/83; PULSE 61; RESP 18; TEMP 36.8; O2SAT 95
[2017-08-05] MEDS: amLODIPine 10 MG Tablet PO (09:05)
[2017-08-05] MEDS: Lisinopril 10 MG Tablet PO (09:05)
[2017-08-05 09:06] VITALS: PULSE 90
[2017-08-05] MEDS: Metoprolol Tartrate 100 MG Tablet PO ×2 (09:06→20:18)
[2017-08-05 13:31] VITALS: BMI 48.4
[2017-08-05 20:14] VITALS: BP 129/79; PULSE 61; RESP 17; TEMP 36.8; O2SAT 95
[2017-08-05] MEDS: Acetaminophen 325 MG Tablet 650 MG PO (20:16)
[2017-08-05] MEDS: Atorvastatin Calcium 40 MG Tablet PO (20:17)
[2017-08-05 20:18] VITALS: BP 129/79; PULSE 61
[2017-08-05] MEDS: LORazepam 0.5 MG Tablet PO (22:35)
[2017-08-06] MEDS: Nystatin Powder 15gm Bottle 1 APPLIC TOPICAL ×2 (05:26→21:34)
[2017-08-06 08:19] VITALS: PULSE 60
[2017-08-06] MEDS: Lisinopril 10 MG Tablet PO (08:19)
[2017-08-06] MEDS: Amox/Clavulanate 875 MG Tablet PO ×2 (08:19→21:35)
[2017-08-06] MEDS: Metoprolol Tartrate 100 MG Tablet PO ×2 (08:19→21:35)
[2017-08-06] MEDS: amLODIPine 10 MG Tablet PO (08:19)
[2017-08-06] MEDS: Clopidogrel Bisulfate 75 MG Tablet PO (08:20)
[2017-08-06 08:41] VITALS: BP 130/72; PULSE 56; RESP 18; TEMP 36.3; O2SAT 93
[2017-08-06 11:25] VITALS: BMI 48.4
[2017-08-06 19:54] VITALS: BP 115/71; PULSE 61; RESP 20; TEMP 36.8; O2SAT 93
[2017-08-06 21:35] VITALS: BP 115/71; PULSE 61
[2017-08-06] MEDS: Atorvastatin Calcium 40 MG Tablet PO (21:35)
[2017-08-06] MEDS: LORazepam 0.5 MG Tablet PO (21:38)
[2017-08-07 05:00] VITALS: BMI 48.4
[2017-08-07] MEDS: Nystatin Powder 15gm Bottle 1 APPLIC TOPICAL ×2 (07:14→22:29)
[2017-08-07 07:37] VITALS: BP 124/74; PULSE 57; RESP 20; TEMP 36.7; O2SAT 95
[2017-08-07 07:40] VITALS: PULSE 56
[2017-08-07] MEDS: Lisinopril 10 MG Tablet PO (07:40)
[2017-08-07] MEDS: Metoprolol Tartrate 100 MG Tablet PO ×2 (07:40→21:04)
[2017-08-07] MEDS: amLODIPine 10 MG Tablet PO (07:41)
[2017-08-07] MEDS: Amox/Clavulanate 875 MG Tablet PO ×2 (07:41→21:05)
[2017-08-07] MEDS: Clopidogrel Bisulfate 75 MG Tablet PO (07:41)
--- NOTE | 2017-08-07 11:51 | PCM.PN.HOSP ---
Patient Problems: Active and Suspected Problems Acute sialoadenitis (Acute) Thrush, oral (Acute) Subjective: still with blurred vision, but he notes that is improved. Vitals/I&O's: Vital Signs Temp Pulse Resp BP Pulse Ox 36.7 C 56 L 20 H 124/74 H 95 08/07/17 07:37 08/07/17 07:40 08/07/17 07:37 08/07/17 07:37 08/07/17 07:37 Oxygen Delivery Method Room Air Weight: 127.063 kg Body Mass Index (BMI) 48.4 Finger Stick Blood Glucose 173 Intake and Output for Last 24 Hours 08/05/17 08/06/17 08/07/17 23:59 23:59 23:59 Intake Total 880 / 880 760 / 760 260 / 260 Balance 880 / 880 760 / 760 260 / 260 General: Alert, Cooperative, No apparent distress HEENT: Atraumatic, Normocephalic, - - ambliopia. EOMI intact on right, limited horizontal gaze with left eye Neurological: - - right facial droop. Current Medications Acetaminophen (Tylenol) 650 mg PO Q6H PRN PRN PRN Reason: PAIN Last Admin: 08/05/17 20:16 Dose: 650 mg Amlodipine Besylate (Norvasc) 10 mg PO DAILY [facility] Last Admin: 08/07/17 07:41 Dose: 10 mg Amoxicillin/Clavulanate Potassium (Augmentin Tablet) 875 mg PO BID [facility] Stop: 08/11/17 10:01 Last Admin: 08/07/17 07:41 Dose: 875 mg Atorvastatin Calcium (Lipitor) 40 mg PO QHS [facility] Last Admin: 08/06/17 21:35 Dose: 40 mg Bisacodyl (Dulcolax) 10 mg RECTAL .PRN X 1 PRN PRN Reason: Constipation Clopidogrel Bisulfate (Plavix) 75 mg PO DAILY [facility] Last Admin: 08/07/17 07:41 Dose: 75 mg Lisinopril (Zestril) 10 mg PO DAILY [facility] Last Admin: 08/07/17 07:40 Dose: 10 mg Lorazepam (Ativan) 0.5 mg PO QHS PRN PRN PRN Reason: Insomnia Last Admin: 08/06/17 21:38 Dose: 0.5 mg Magnesium Hydroxide (Milk Of Magnesia) 30 ml PO .PRN X 1 PRN PRN Reason: Constipation Metoprolol Tartrate (Lopressor (Beta Jaleel)) 100 mg PO BID [facility] Last Admin: 08/07/17 07:40 Dose: 100 mg Neomycin/Polymyxin/Bacitracin (Neosporin Packet) 1 packet TOPICAL 0600,2200 [facility] PRN Reason: Protocol Last Admin: 08/07/17 07:14 Dose: 1 packet Nystatin (Mycostatin Powder) 1 applic TOPICAL 0600,2200 [facility] PRN Reason: Protocol Last Admin: 08/07/17 07:14 Dose: 1 applicatio Senna/Docusate Sodium (Senokot-S, Latricia-Colace) 2 tablet PO BID [facility] Last Admin: 08/07/17 07:39 Dose: Not Given Medical Necessity - Tobacco Use Smoking Status: Former smoker Tobacco Use: Cigarettes Assessment/Plan Active and Suspected Problems Acute sialoadenitis (Acute) Thrush, oral (Acute) 1. 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 2. Hypertension: improved. 3. CAD stable 4. Sialoadenitis started on Augmentin by ENT (through the ). Warm compresses. follow up with ENT if recurrs 5. thrush: nystatin. Code Visit Inpatient E&M: 60026 Subs Hosp L1
--- NOTE | 2017-08-07 11:54 | PN_ITS ---
Patient Problems: Active and Suspected Problems Acute sialoadenitis (Acute) Thrush, oral (Acute) Subjective: still with blurred vision, but he notes that is improved. Vitals/I&O's: Vital Signs Temp Pulse Resp BP Pulse Ox 36.7 C 56 L 20 H 124/74 H 95 08/07/17 07:37 08/07/17 07:40 08/07/17 07:37 08/07/17 07:37 08/07/17 07:37 Oxygen Delivery Method Room Air Weight: 127.063 kg Body Mass Index (BMI) 48.4 Finger Stick Blood Glucose 173 Intake and Output for Last 24 Hours 08/05/17 08/06/17 08/07/17 23:59 23:59 23:59 Intake Total 880 / 880 760 / 760 260 / 260 Balance 880 / 880 760 / 760 260 / 260 General: Alert, Cooperative, No apparent distress HEENT: Atraumatic, Normocephalic, - - ambliopia. EOMI intact on right, limited horizontal gaze with left eye Neurological: - - right facial droop. Current Medications Acetaminophen (Tylenol) 650 mg PO Q6H PRN PRN PRN Reason: PAIN Last Admin: 08/05/17 20:16 Dose: 650 mg Amlodipine Besylate (Norvasc) 10 mg PO DAILY [facility] Last Admin: 08/07/17 07:41 Dose: 10 mg Amoxicillin/Clavulanate Potassium (Augmentin Tablet) 875 mg PO BID [facility] Stop: 08/11/17 10:01 Last Admin: 08/07/17 07:41 Dose: 875 mg Atorvastatin Calcium (Lipitor) 40 mg PO QHS [facility] Last Admin: 08/06/17 21:35 Dose: 40 mg Bisacodyl (Dulcolax) 10 mg RECTAL .PRN X 1 PRN PRN Reason: Constipation Clopidogrel Bisulfate (Plavix) 75 mg PO DAILY [facility] Last Admin: 08/07/17 07:41 Dose: 75 mg Lisinopril (Zestril) 10 mg PO DAILY [facility] Last Admin: 08/07/17 07:40 Dose: 10 mg Lorazepam (Ativan) 0.5 mg PO QHS PRN PRN PRN Reason: Insomnia Last Admin: 08/06/17 21:38 Dose: 0.5 mg Magnesium Hydroxide (Milk Of Magnesia) 30 ml PO .PRN X 1 PRN PRN Reason: Constipation Metoprolol Tartrate (Lopressor (Beta Jaleel)) 100 mg PO BID [facility] Last Admin: 08/07/17 07:40 Dose: 100 mg Neomycin/Polymyxin/Bacitracin (Neosporin Packet) 1 packet TOPICAL 0600,2200 [facility] PRN Reason: Protocol Last Admin: 08/07/17 07:14 Dose: 1 packet Nystatin (Mycostatin Powder) 1 applic TOPICAL 0600,2200 [facility] PRN Reason: Protocol Last Admin: 08/07/17 07:14 Dose: 1 applicatio Senna/Docusate Sodium (Senokot-S, Latricia-Colace) 2 tablet PO BID [facility] Last Admin: 08/07/17 07:39 Dose: Not Given Medical Necessity - Tobacco Use Smoking Status: Former smoker Tobacco Use: Cigarettes Assessment/Plan Active and Suspected Problems Acute sialoadenitis (Acute) Thrush, oral (Acute) 1. Pontine and medullary CVA * plavix and statin * still with diplopia and alternating patching. 2. Hypertension: * improved. 3. CAD stable 4. Sialoadenitis * started on Augmentin by ENT (through the ). * Warm compresses. * follow up with ENT if recurrs 5. thrush: nystatin. Code Visit Inpatient E&M: 95034 [facility] Hosp L1
[2017-08-07 12:19] VITALS: BMI 48.4
[2017-08-07 21:00] VITALS: BP 123/74; PULSE 97; RESP 18; TEMP 36.6; O2SAT 95; BMI 48.4
[2017-08-07 21:04] VITALS: BP 123/74; PULSE 97
[2017-08-07] MEDS: Atorvastatin Calcium 40 MG Tablet PO (21:05)
[2017-08-07] MEDS: LORazepam 0.5 MG Tablet PO (22:28)
--- NOTE | 2017-08-08 02:25 | NURSING ---
REVIEWED AND AGREE WITH HAND BOX COVERER'S FIM AND HANDOFF CHARTING.
[2017-08-08] MEDS: Nystatin Powder 15gm Bottle 1 APPLIC TOPICAL ×2 (06:11→21:08)
[2017-08-08 08:03] VITALS: BP 121/71; PULSE 58; RESP 18; TEMP 36.7; O2SAT 95
[2017-08-08 08:04] VITALS: PULSE 58
[2017-08-08] MEDS: amLODIPine 10 MG Tablet PO (08:04)
[2017-08-08] MEDS: Clopidogrel Bisulfate 75 MG Tablet PO (08:04)
[2017-08-08] MEDS: Lisinopril 10 MG Tablet PO (08:04)
[2017-08-08] MEDS: Amox/Clavulanate 875 MG Tablet PO ×2 (08:04→21:04)
[2017-08-08] MEDS: Metoprolol Tartrate 100 MG Tablet PO ×2 (08:04→21:03)
--- NOTE | 2017-08-08 09:53 | PCM.PN.NEU ---
Patient Problems: Active and Suspected Problems Acute sialoadenitis (Acute) Thrush, oral (Acute) Subjective: Patient seen and examined. No issues overnight. Tolerating therapy. Admits to feeling depressed will start on Lexapro 10mg daily. Denies any shortness of breath or chest pains. Tolerating regular diet. - Physical Exam General: Alert, Oriented x3, Cooperative HEENT: Atraumatic, PERRLA, EOMI, Normocephalic Neck: Supple, No JVD, Negative Carotid Bruits Lungs: Clear to auscultation, Normal air movement Cardiovascular: Regular rate, No murmurs Abdomen: Bowel Sounds Present, Soft, Non Tender Extremities: No edema, Capillary Refill Less than 3 Seconds Skin: No rashes, No breakdown Musculoskeletal: No Tenderness to Palpation of Joints or Extremities Neurological: Cranial nerves II-XII grossly intact Psych/Mental Status: Normal Affect, Appropriate, Alert and oriented to time, place, person, mood and affect Vital Signs Temp Pulse Resp BP Pulse Ox 98.0 F 58 L 18 121/71 H 95 08/08/17 08:03 08/08/17 08:04 08/08/17 08:03 08/08/17 08:03 08/08/17 08:03 Oxygen Delivery Method Room Air Weight: 127.063 kg Body Mass Index (BMI) 48.4 Finger Stick Blood Glucose 173 Intake and Output for Last 24 Hours 08/06/17 08/07/17 08/08/17 23:59 23:59 23:59 Intake Total 760 / 760 260 / 260 320 / 320 Balance 760 / 760 260 / 260 320 / 320 Active Medications Acetaminophen (Tylenol) 650 mg PO Q6H PRN PRN PRN Reason: PAIN Last Admin: 08/05/17 20:16 Dose: 650 mg Amlodipine Besylate (Norvasc) 10 mg PO DAILY [facility] Last Admin: 08/08/17 08:04 Dose: 10 mg Amoxicillin/Clavulanate Potassium (Augmentin Tablet) 875 mg PO BID [facility] Stop: 08/11/17 10:01 Last Admin: 08/08/17 08:04 Dose: 875 mg Atorvastatin Calcium (Lipitor) 40 mg PO QHS [facility] Last Admin: 08/07/17 21:05 Dose: 40 mg Bisacodyl (Dulcolax) 10 mg RECTAL .PRN X 1 PRN PRN Reason: Constipation Clopidogrel Bisulfate (Plavix) 75 mg PO DAILY [facility] Last Admin: 08/08/17 08:04 Dose: 75 mg Lisinopril (Zestril) 10 mg PO DAILY [facility] Last Admin: 08/08/17 08:04 Dose: 10 mg Lorazepam (Ativan) 0.5 mg PO QHS PRN PRN PRN Reason: Insomnia Last Admin: 08/07/17 22:28 Dose: 0.5 mg Magnesium Hydroxide (Milk Of Magnesia) 30 ml PO .PRN X 1 PRN PRN Reason: Constipation Metoprolol Tartrate (Lopressor (Beta Jaleel)) 100 mg PO BID [facility] Last Admin: 08/08/17 08:04 Dose: 100 mg Neomycin/Polymyxin/Bacitracin (Neosporin Packet) 1 packet TOPICAL 0600,2200 [facility] PRN Reason: Protocol Last Admin: 08/08/17 06:12 Dose: 1 packet Nystatin (Mycostatin Powder) 1 applic TOPICAL 0600,2200 [facility] PRN Reason: Protocol Last Admin: 08/08/17 06:11 Dose: 1 applicatio Senna/Docusate Sodium (Senokot-S, Latricia-Colace) 2 tablet PO BID [facility] Last Admin: 08/07/17 16:26 Dose: Not Given Medical Necessity - Tobacco Use Smoking Status: Former smoker Tobacco Use: Cigarettes Assessment/Plan Active and Suspected Problems Acute sialoadenitis (Acute) Thrush, oral (Acute) 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 Complicated by obstructive sleep apnea and hypertension. Goal of rehab is rastafari of prior level of functional independence. Plan: - Physical therapy for gait and balance - Occupational Therapy for ADLs - Bowel protocol - As needed analgesics - DVT prophylaxis: Lovenox - Blood pressure control - Obstructive sleep apnea: Currently on home BiPAP, which he is tolerating. He will need an outpatient sleep study ever since his last study was greater than 4 years ago. - Started on Augmentin 875mg BID for swollen salivary gland - Depression -> add Lexapro 10mg
[2017-08-08 11:08] VITALS: BMI 48.4
--- NOTE | 2017-08-08 13:30 | PN_ITS ---
Patient Problems: Active and Suspected Problems Acute sialoadenitis (Acute) Thrush, oral (Acute) Subjective: Patient is a 52-year-old gentleman with past medical history cigar for essential hypertension, CAD admitted with acute left pontine stroke. Objective: GENERAL: cooperative HEENT: Clear conjunctiva, NECK; supple, normal thyroid, CHEST: Clear to auscultation bilaterally, HEART: Regular S1 S2, no audible murmurs ABDOMEN: soft, non-tender, normoactive bowel sounds, RECTAL: deferred EXTREMITIES: No edema, no clubbing, no cyanosis. WOOL HAT SANDING MACHINE OPERATOR: Right upper extremity paresis, left facial droop SKIN: No Rash Vitals/I&O's: Vital Signs Temp Pulse Resp BP Pulse Ox 98.0 F 58 L 18 121/71 H 95 08/08/17 08:03 08/08/17 08:04 08/08/17 08:03 08/08/17 08:03 08/08/17 08:03 Oxygen Delivery Method Room Air Weight: 127.063 kg Body Mass Index (BMI) 48.4 Finger Stick Blood Glucose 173 Intake and Output for Last 24 Hours 08/06/17 08/07/17 08/08/17 23:59 23:59 23:59 Intake Total 760 / 760 260 / 260 320 / 320 Balance 760 / 760 260 / 260 320 / 320 Current Medications Acetaminophen (Tylenol) 650 mg PO Q6H PRN PRN PRN Reason: PAIN Last Admin: 08/05/17 20:16 Dose: 650 mg Amlodipine Besylate (Norvasc) 10 mg PO DAILY [facility] Last Admin: 08/08/17 08:04 Dose: 10 mg Amoxicillin/Clavulanate Potassium (Augmentin Tablet) 875 mg PO BID [facility] Stop: 08/11/17 10:01 Last Admin: 08/08/17 08:04 Dose: 875 mg Atorvastatin Calcium (Lipitor) 40 mg PO QHS [facility] Last Admin: 08/07/17 21:05 Dose: 40 mg Bisacodyl (Dulcolax) 10 mg RECTAL .PRN X 1 PRN PRN Reason: Constipation Clopidogrel Bisulfate (Plavix) 75 mg PO DAILY [facility] Last Admin: 08/08/17 08:04 Dose: 75 mg Escitalopram Oxalate (Lexapro) 10 mg PO DAILY [facility] Lisinopril (Zestril) 10 mg PO DAILY [facility] Last Admin: 08/08/17 08:04 Dose: 10 mg Lorazepam (Ativan) 0.5 mg PO QHS PRN PRN PRN Reason: Insomnia Last Admin: 08/07/17 22:28 Dose: 0.5 mg Magnesium Hydroxide (Milk Of Magnesia) 30 ml PO .PRN X 1 PRN PRN Reason: Constipation Metoprolol Tartrate (Lopressor (Beta Jaleel)) 100 mg PO BID [facility] Last Admin: 08/08/17 08:04 Dose: 100 mg Neomycin/Polymyxin/Bacitracin (Neosporin Packet) 1 packet TOPICAL 0600,2200 [facility] PRN Reason: Protocol Last Admin: 08/08/17 06:12 Dose: 1 packet Nystatin (Mycostatin Powder) 1 applic TOPICAL 0600,2200 [facility] PRN Reason: Protocol Last Admin: 08/08/17 06:11 Dose: 1 applicatio Senna/Docusate Sodium (Senokot-S, Latricia-Colace) 2 tablet PO BID [facility] Last Admin: 08/07/17 16:26 Dose: Not Given Medical Necessity - Tobacco Use Smoking Status: Former smoker Tobacco Use: Cigarettes Assessment/Plan Active and Suspected Problems Acute sialoadenitis (Acute) Thrush, oral (Acute) Patient is a 52-year-old gentleman with past medical history cigar for essential hypertension, CAD admitted with acute left pontine stroke. 1. 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 Coronary artery disease. Stable. Continue Plavix, statin, and metoprolol. 3. Hypertension-blood pressure controlled, home medications continued with dose adjustment as needed 4. Sleep apnea. Continue CPAP at HS. 5. Sialoadenitis; treated symptomatically with warm compresses as well as Augmentin initiated by ENT 6. Morbid obesity with BMI of 46.6 lifestyle modification including weight loss advised 7. DVT prophylaxis; Lovenox Code Visit Inpatient E&M: 38481 [facility] Hosp L2
--- NOTE | 2017-08-08 15:14 | CASEMGMT ---
Insurance Continued stay approved with next update due on 08/12/17. Auth#[id number] Karyn NOWAK, ASSISTANT WOMEN'S TENNIS COACH
[2017-08-08 19:43] VITALS: BP 132/56; PULSE 61; RESP 18; TEMP 36.7; O2SAT 96
[2017-08-08 19:46] VITALS: BMI 48.4
[2017-08-08 21:03] VITALS: BP 132/56; PULSE 61
[2017-08-08] MEDS: Atorvastatin Calcium 40 MG Tablet PO (21:04)
[2017-08-08] MEDS: LORazepam 0.5 MG Tablet PO (21:06)
--- NOTE | 2017-08-09 02:02 | NURSING ---
Reviewed and agree with RECREATION THERAPY TEACHER documentation and FIMS charting
[2017-08-09 06:47] LABS: Hematocrit 45.7 % (40-54); Hemoglobin 15.1 g/dl (13.0-16.5); Mean Corpuscular Hgb 28.8 pg (27.0-32.0); Mean Corpuscular Volume 87.2 fL (80-94); Mean Platelet Vol. 8.5 fl (6.2-12.0); Platelet Count 282 K/mm3 (150-450); RBC Distribution Width CV 13.9 % (11.6-14.6); RBC Distribution Width SD 44.3 fl (35.1-43.9); Red Blood Count 5.24 M/mm3 (4.6-6.2); White Blood Count 8.7 K/mm3 (4.4-11.0)
[2017-08-09 06:49] LABS: Scan Indicated on CBC? Y/N NO
[2017-08-09 07:08] LABS: ALB/GLOB Ratio 0.8 RATIO (0.9-2.4); AST(SGOT) 18 U/L (15-37); Alanine Aminotransfer ALT/SGPT 25 U/L (16-61); Albumin, Serum 3.4 g/dL (3.2-5.0); Alkaline Phosphatase 95 U/L (45-117); Anion Gap 8 (5-15); BUN 18 mg/dL (7-18); BUN/Creat Ratio 21.4 RATIO (10-20); Chloride 104 mmol/L (98-107); Creatinine, Serum 0.84 mg/dL (0.70-1.30); EST Glomerular Filtration Rate 103 mL/min (>60); Est Glom Filt Rate - Afr Amer 124 mL/min (>60); Estimated Creatinine Clearance 91.52 ml/min; Globulin 4.5 g/dL (2.2-4.2); Glucose 113 mg/dL (74-106); Potassium 4.4 mmol/L (3.5-5.1); Protein, Total 7.9 g/dL (6.4-8.2); Sodium Level 139 mmol/L (136-145)
[2017-08-09 07:46] VITALS: BP 159/73; PULSE 61; RESP 19; TEMP 36.9; O2SAT 94
[2017-08-09] MEDS: amLODIPine 10 MG Tablet PO (08:39)
[2017-08-09] MEDS: Lisinopril 10 MG Tablet PO (08:39)
[2017-08-09 08:40] VITALS: PULSE 80
[2017-08-09] MEDS: Metoprolol Tartrate 100 MG Tablet PO ×2 (08:40→21:07)
[2017-08-09] MEDS: Escitalopram Oxalate 10 MG Tablet PO (08:40)
[2017-08-09] MEDS: Amox/Clavulanate 875 MG Tablet PO ×2 (08:40→21:08)
[2017-08-09] MEDS: Enoxaparin 40 MG/0.4 ML Syringe SC (08:40)
[2017-08-09] MEDS: Clopidogrel Bisulfate 75 MG Tablet PO (08:42)
--- NOTE | 2017-08-09 11:28 | PCM.PN.NEU ---
Patient Problems: Active and Suspected Problems Acute sialoadenitis (Acute) Thrush, oral (Acute) Subjective: Patient seen and examined. No new complaints. Tolerating therapy. Denies any shortness of breath or chest. No issues with GI/. Started on Lexapro yesterday for depression. His Lovenox dropped off the Mar was restarted to day, Hypercoagulation panel was drawn today also. - Physical Exam General: Alert, Oriented x3, Cooperative HEENT: Atraumatic, PERRLA, EOMI, Normocephalic Neck: Supple, No JVD, Negative Carotid Bruits Lungs: Clear to auscultation, Normal air movement Cardiovascular: Regular rate, No murmurs Abdomen: Bowel Sounds Present, Soft, Non Tender Extremities: No edema, Capillary Refill Less than 3 Seconds Skin: No rashes, No breakdown Musculoskeletal: No Tenderness to Palpation of Joints or Extremities Neurological: Cranial nerves II-XII grossly intact Psych/Mental Status: Normal Affect, Appropriate, Alert and oriented to time, place, person, mood and affect Vital Signs Temp Pulse Resp BP Pulse Ox 98.4 F 80 19 H 159/73 H 94 08/09/17 07:46 08/09/17 08:40 08/09/17 07:46 08/09/17 07:46 08/09/17 07:46 Oxygen Delivery Method Room Air Weight: 127.063 kg Body Mass Index (BMI) 48.4 Finger Stick Blood Glucose 173 Intake and Output for Last 24 Hours 08/07/17 08/08/17 08/09/17 23:59 23:59 23:59 Intake Total 260 / 260 800 / 800 260 / 260 Balance 260 / 260 800 / 800 260 / 260 Laboratory Tests Past 24 Hrs 08/09/17 08/09/17 05:49 05:49 WBC 8.7 RBC 5.24 Hgb 15.1 Hct 45.7 MCV 87.2 MCH 28.8 MCHC 33.0 RDW 13.9 RDW Differential 44.3 H Plt Count 282 MPV 8.5 Sodium 139 Potassium 4.4 Chloride 104 Carbon Dioxide 27.0 Anion Gap 8 BUN 18 Creatinine 0.84 Estim Creat Clear Calc 91.52 Est GFR (MDRD) Af Amer 124 Est GFR (MDRD) Non-Af 103 BUN/Creatinine Ratio 21.4 H Glucose 113 H Calcium 8.0 L Total Bilirubin 0.60 AST 18 ALT 25 Alkaline Phosphatase 95 Total Protein 7.9 Albumin 3.4 Globulin 4.5 H Albumin/Globulin Ratio 0.8 L Active Medications Acetaminophen (Tylenol) 650 mg PO Q6H PRN PRN PRN Reason: PAIN Last Admin: 08/05/17 20:16 Dose: 650 mg Amlodipine Besylate (Norvasc) 10 mg PO DAILY [facility] Last Admin: 08/09/17 08:39 Dose: 10 mg Amoxicillin/Clavulanate Potassium (Augmentin Tablet) 875 mg PO BID [facility] Stop: 08/11/17 10:01 Last Admin: 08/09/17 08:40 Dose: 875 mg Atorvastatin Calcium (Lipitor) 40 mg PO QHS [facility] Last Admin: 08/08/17 21:04 Dose: 40 mg Bisacodyl (Dulcolax) 10 mg RECTAL .PRN X 1 PRN PRN Reason: Constipation Clopidogrel Bisulfate (Plavix) 75 mg PO DAILY [facility] Last Admin: 08/09/17 08:42 Dose: 75 mg Enoxaparin Sodium (Lovenox) 40 mg SC DAILY@0600 [facility] Last Admin: 08/09/17 08:40 Dose: 40 mg Escitalopram Oxalate (Lexapro) 10 mg PO DAILY [facility] Last Admin: 08/09/17 08:40 Dose: 10 mg Lisinopril (Zestril) 10 mg PO DAILY [facility] Last Admin: 08/09/17 08:39 Dose: 10 mg Lorazepam (Ativan) 0.5 mg PO QHS PRN PRN PRN Reason: Insomnia Last Admin: 08/08/17 21:06 Dose: 0.5 mg Magnesium Hydroxide (Milk Of Magnesia) 30 ml PO .PRN X 1 PRN PRN Reason: Constipation Metoprolol Tartrate (Lopressor (Beta Jaleel)) 100 mg PO BID [facility] Last Admin: 08/09/17 08:40 Dose: 100 mg Neomycin/Polymyxin/Bacitracin (Neosporin Packet) 1 packet TOPICAL 0600,2200 [facility] PRN Reason: Protocol Last Admin: 08/09/17 05:29 Dose: 1 packet Nystatin (Mycostatin Powder) 1 applic TOPICAL 0600,2200 [facility] PRN Reason: Protocol Last Admin: 08/09/17 05:40 Dose: Not Given Senna/Docusate Sodium (Senokot-S, Latricia-Colace) 2 tablet PO BID [facility] Last Admin: 08/09/17 08:43 Dose: Not Given Medical Necessity - Tobacco Use Smoking Status: Former smoker Tobacco Use: Cigarettes Assessment/Plan Active and Suspected Problems Acute sialoadenitis (Acute) Thrush, oral (Acute) 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 Complicated by obstructive sleep apnea and hypertension. Goal of rehab is taoist of prior level of functional independence. Plan: - Physical therapy for gait and balance - Occupational Therapy for ADLs - Bowel protocol - As needed analgesics - DVT prophylaxis: Lovenox - Blood pressure control - Obstructive sleep apnea: Currently on home BiPAP, which he is tolerating. He will need an outpatient sleep study ever since his last study was greater than 4 years ago. - Started on Augmentin 875mg BID for swollen salivary gland - Depression -> add Lexapro 10mg - Hypercoagulation panel
--- NOTE | 2017-08-09 11:32 | PN.NEURO_ITS ---
Patient Problems: Active and Suspected Problems Acute sialoadenitis (Acute) Thrush, oral (Acute) Subjective: Patient seen and examined. No new complaints. Tolerating therapy. Denies any shortness of breath or chest. No issues with GI/. Started on Lexapro yesterday for depression. His Lovenox dropped off the Mar was restarted to day, Hypercoagulation panel was drawn today also. - Physical Exam General: Alert, Oriented x3, Cooperative HEENT: Atraumatic, PERRLA, EOMI, Normocephalic Neck: Supple, No JVD, Negative Carotid Bruits Lungs: Clear to auscultation, Normal air movement Cardiovascular: Regular rate, No murmurs Abdomen: Bowel Sounds Present, Soft, Non Tender Extremities: No edema, Capillary Refill Less than 3 Seconds Skin: No rashes, No breakdown Musculoskeletal: No Tenderness to Palpation of Joints or Extremities Neurological: Cranial nerves II-XII grossly intact Psych/Mental Status: Normal Affect, Appropriate, Alert and oriented to time, place, person, mood and affect Vital Signs Temp Pulse Resp BP Pulse Ox 98.4 F 80 19 H 159/73 H 94 08/09/17 07:46 08/09/17 08:40 08/09/17 07:46 08/09/17 07:46 08/09/17 07:46 Oxygen Delivery Method Room Air Weight: 127.063 kg Body Mass Index (BMI) 48.4 Finger Stick Blood Glucose 173 Intake and Output for Last 24 Hours 08/07/17 08/08/17 08/09/17 23:59 23:59 23:59 Intake Total 260 / 260 800 / 800 260 / 260 Balance 260 / 260 800 / 800 260 / 260 Laboratory Tests Past 24 Hrs 08/09/17 08/09/17 05:49 05:49 WBC 8.7 RBC 5.24 Hgb 15.1 Hct 45.7 MCV 87.2 MCH 28.8 MCHC 33.0 RDW 13.9 RDW Differential 44.3 H Plt Count 282 MPV 8.5 Sodium 139 Potassium 4.4 Chloride 104 Carbon Dioxide 27.0 Anion Gap 8 BUN 18 Creatinine 0.84 Estim Creat Clear Calc 91.52 Est GFR (MDRD) Af Amer 124 Est GFR (MDRD) Non-Af 103 BUN/Creatinine Ratio 21.4 H Glucose 113 H Calcium 8.0 L Total Bilirubin 0.60 AST 18 ALT 25 Alkaline Phosphatase 95 Total Protein 7.9 Albumin 3.4 Globulin 4.5 H Albumin/Globulin Ratio 0.8 L Active Medications Acetaminophen (Tylenol) 650 mg PO Q6H PRN PRN PRN Reason: PAIN Last Admin: 08/05/17 20:16 Dose: 650 mg Amlodipine Besylate (Norvasc) 10 mg PO DAILY [facility] Last Admin: 08/09/17 08:39 Dose: 10 mg Amoxicillin/Clavulanate Potassium (Augmentin Tablet) 875 mg PO BID [facility] Stop: 08/11/17 10:01 Last Admin: 08/09/17 08:40 Dose: 875 mg Atorvastatin Calcium (Lipitor) 40 mg PO QHS [facility] Last Admin: 08/08/17 21:04 Dose: 40 mg Bisacodyl (Dulcolax) 10 mg RECTAL .PRN X 1 PRN PRN Reason: Constipation Clopidogrel Bisulfate (Plavix) 75 mg PO DAILY [facility] Last Admin: 08/09/17 08:42 Dose: 75 mg Enoxaparin Sodium (Lovenox) 40 mg SC DAILY@0600 [facility] Last Admin: 08/09/17 08:40 Dose: 40 mg Escitalopram Oxalate (Lexapro) 10 mg PO DAILY [facility] Last Admin: 08/09/17 08:40 Dose: 10 mg Lisinopril (Zestril) 10 mg PO DAILY [facility] Last Admin: 08/09/17 08:39 Dose: 10 mg Lorazepam (Ativan) 0.5 mg PO QHS PRN PRN PRN Reason: Insomnia Last Admin: 08/08/17 21:06 Dose: 0.5 mg Magnesium Hydroxide (Milk Of Magnesia) 30 ml PO .PRN X 1 PRN PRN Reason: Constipation Metoprolol Tartrate (Lopressor (Beta Jaleel)) 100 mg PO BID [facility] Last Admin: 08/09/17 08:40 Dose: 100 mg Neomycin/Polymyxin/Bacitracin (Neosporin Packet) 1 packet TOPICAL 0600,2200 [facility] PRN Reason: Protocol Last Admin: 08/09/17 05:29 Dose: 1 packet Nystatin (Mycostatin Powder) 1 applic TOPICAL 0600,2200 [facility] PRN Reason: Protocol Last Admin: 08/09/17 05:40 Dose: Not Given Senna/Docusate Sodium (Senokot-S, Latricia-Colace) 2 tablet PO BID [facility] Last Admin: 08/09/17 08:43 Dose: Not Given Medical Necessity - Tobacco Use Smoking Status: Former smoker Tobacco Use: Cigarettes Assessment/Plan Active and Suspected Problems Acute sialoadenitis (Acute) Thrush, oral (Acute) 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 Complicated by obstructive sleep apnea and hypertension. Goal of rehab is sikh of prior level of functional independence. Plan: - Physical therapy for gait and balance - Occupational Therapy for ADLs - Bowel protocol - As needed analgesics - DVT prophylaxis: Lovenox - Blood pressure control - Obstructive sleep apnea: Currently on home BiPAP, which he is tolerating. He will need an outpatient sleep study ever since his last study was greater than 4 years ago. - Started on Augmentin 875mg BID for swollen salivary gland - Depression -> add Lexapro 10mg - Hypercoagulation panel
[2017-08-09 15:48] VITALS: BMI 48.4
[2017-08-09 19:20] VITALS: BP 121/73; PULSE 63; RESP 20; TEMP 36.7; O2SAT 94
[2017-08-09] MEDS: Acetaminophen 325 MG Tablet 650 MG PO (19:47)
[2017-08-09 21:07] VITALS: BP 121/73; PULSE 63
[2017-08-09] MEDS: Atorvastatin Calcium 40 MG Tablet PO (21:08)
[2017-08-09] MEDS: Nystatin Powder 15gm Bottle 1 APPLIC TOPICAL (21:11)
[2017-08-09 21:49] VITALS: BMI 48.4
[2017-08-09] MEDS: LORazepam 0.5 MG Tablet PO (23:01)
[2017-08-10] MEDS: Enoxaparin 40 MG/0.4 ML Syringe SC (06:36)
[2017-08-10 09:20] VITALS: BP 128/80; PULSE 59; RESP 16; TEMP 36.5; O2SAT 94
[2017-08-10 10:01] VITALS: PULSE 80
[2017-08-10] MEDS: Metoprolol Tartrate 100 MG Tablet PO (10:01)
[2017-08-10] MEDS: amLODIPine 10 MG Tablet PO (10:01)
[2017-08-10] MEDS: Escitalopram Oxalate 10 MG Tablet PO (10:01)
[2017-08-10] MEDS: Clopidogrel Bisulfate 75 MG Tablet PO (10:01)
[2017-08-10] MEDS: Amox/Clavulanate 875 MG Tablet PO ×2 (10:01→20:33)
[2017-08-10] MEDS: Lisinopril 10 MG Tablet PO (10:02)
[2017-08-10 10:08] VITALS: BMI 48.4
--- NOTE | 2017-08-10 10:40 | PN_ITS ---
Patient Problems: Active and Suspected Problems Acute sialoadenitis (Acute) Thrush, oral (Acute) Subjective: Seen admit to significant improvement in his right jaw pain however is beginning to experience new pain on the left side Objective: GENERAL: cooperative HEENT: Clear conjunctiva, NECK; supple, normal thyroid, CHEST: Clear to auscultation bilaterally, HEART: Regular S1 S2, no audible murmurs ABDOMEN: soft, non-tender, normoactive bowel sounds, RECTAL: deferred EXTREMITIES: No edema, no clubbing, no cyanosis. [employer]OR: Right upper extremity paresis, left facial droop SKIN: No Rash Vitals/I&O's: Vital Signs Temp Pulse Resp BP Pulse Ox 97.7 F L 80 16 128/80 H 94 08/10/17 09:20 08/10/17 10:01 08/10/17 09:20 08/10/17 09:20 08/10/17 09:20 Oxygen Delivery Method Room Air Weight: 1278.3 kg Body Mass Index (BMI) 48.4 Finger Stick Blood Glucose 173 Intake and Output for Last 24 Hours 08/08/17 08/09/17 08/10/17 23:59 23:59 23:59 Intake Total 800 / 800 500 / 500 320 / 320 Balance 800 / 800 500 / 500 320 / 320 Laboratory Results 08/09/17 11:28: Factor V Leiden Mutat Pending, Factor VIII Activity Pending, von Willebrand Comment Pending, Intrinsic Factor Ab Pending, Factor II DNA Analysis Pending Current Medications Acetaminophen (Tylenol) 650 mg PO Q6H PRN PRN PRN Reason: PAIN Last Admin: 08/09/17 19:47 Dose: 650 mg Amlodipine Besylate (Norvasc) 10 mg PO DAILY [facility] Last Admin: 08/10/17 10:01 Dose: 10 mg Amoxicillin/Clavulanate Potassium (Augmentin Tablet) 875 mg PO BID [facility] Stop: 08/11/17 10:01 Last Admin: 08/10/17 10:01 Dose: 875 mg Atorvastatin Calcium (Lipitor) 40 mg PO QHS [facility] Last Admin: 08/09/17 21:08 Dose: 40 mg Bisacodyl (Dulcolax) 10 mg RECTAL .PRN X 1 PRN PRN Reason: Constipation Clopidogrel Bisulfate (Plavix) 75 mg PO DAILY [facility] Last Admin: 08/10/17 10:01 Dose: 75 mg Enoxaparin Sodium (Lovenox) 40 mg SC DAILY@0600 [facility] Last Admin: 08/10/17 06:36 Dose: 40 mg Escitalopram Oxalate (Lexapro) 10 mg PO DAILY [facility] Last Admin: 08/10/17 10:01 Dose: 10 mg Lisinopril (Zestril) 10 mg PO DAILY [facility] Last Admin: 08/10/17 10:02 Dose: 10 mg Lorazepam (Ativan) 0.5 mg PO QHS PRN PRN PRN Reason: Insomnia Last Admin: 08/09/17 23:01 Dose: 0.5 mg Magnesium Hydroxide (Milk Of Magnesia) 30 ml PO .PRN X 1 PRN PRN Reason: Constipation Metoprolol Tartrate (Lopressor (Beta Jaleel)) 100 mg PO BID [facility] Last Admin: 08/10/17 10:01 Dose: 100 mg Neomycin/Polymyxin/Bacitracin (Neosporin Packet) 1 packet TOPICAL 0600,2200 [facility] PRN Reason: Protocol Last Admin: 08/10/17 06:37 Dose: 1 packet Nystatin (Mycostatin Powder) 1 applic TOPICAL 0600,2200 [facility] PRN Reason: Protocol Last Admin: 08/10/17 06:33 Dose: Not Given Senna/Docusate Sodium (Senokot-S, Latricia-Colace) 2 tablet PO BID [facility] Last Admin: 08/10/17 10:03 Dose: Not Given Medical Necessity - Tobacco Use Smoking Status: Former smoker Tobacco Use: Cigarettes Assessment/Plan Active and Suspected Problems Acute sialoadenitis (Acute) Thrush, oral (Acute) Patient is a 52-year-old gentleman with past medical history cigar for essential hypertension, CAD admitted with acute left pontine stroke. 1. 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 Coronary artery disease. Stable. Continue Plavix, statin, and metoprolol. 3. Hypertension-blood pressure controlled, home medications continued with dose adjustment as needed 4. Sleep apnea. Continue CPAP at HS. 5. Sialoadenitis; treated symptomatically with warm compresses as well as Augmentin initiated by ENT 6. Morbid obesity with BMI of 46.6 lifestyle modification including weight loss advised 7. DVT prophylaxis; Lovenox Code Visit Inpatient E&M: 27442 Subs Hosp L2
--- NOTE | 2017-08-10 16:21 | PN.NEURO_ITS ---
Patient Problems: Active and Suspected Problems Acute sialoadenitis (Acute) Thrush, oral (Acute) Subjective: Patient seen and examined. No new complaints.Tolerating therapy. Denies any shortness of breath or chest. No issues with GI/. - Physical Exam General: Alert, Oriented x3, Cooperative HEENT: Atraumatic, PERRLA, EOMI, Normocephalic Neck: Supple, No JVD, Negative Carotid Bruits Lungs: Clear to auscultation, Normal air movement Cardiovascular: Regular rate, No murmurs Abdomen: Bowel Sounds Present, Soft, Non Tender Extremities: No edema, Capillary Refill Less than 3 Seconds Skin: No rashes, No breakdown Musculoskeletal: No Tenderness to Palpation of Joints or Extremities Neurological: Cranial nerves II-XII grossly intact Psych/Mental Status: Normal Affect, Appropriate, Alert and oriented to time, place, person, mood and affect Vital Signs Temp Pulse Resp BP Pulse Ox 97.7 F L 80 16 128/80 H 94 08/10/17 09:20 08/10/17 10:01 08/10/17 09:20 08/10/17 09:20 08/10/17 09:20 Oxygen Delivery Method Room Air Weight: 1278.3 kg Body Mass Index (BMI) 48.4 Finger Stick Blood Glucose 173 Intake and Output for Last 24 Hours 08/08/17 08/09/17 08/10/17 23:59 23:59 23:59 Intake Total 800 / 800 500 / 500 540 / 540 Balance 800 / 800 500 / 500 540 / 540 Active Medications Acetaminophen (Tylenol) 650 mg PO Q6H PRN PRN PRN Reason: PAIN Last Admin: 08/09/17 19:47 Dose: 650 mg Amlodipine Besylate (Norvasc) 10 mg PO DAILY [facility] Last Admin: 08/10/17 10:01 Dose: 10 mg Amoxicillin/Clavulanate Potassium (Augmentin Tablet) 875 mg PO BID [facility] Stop: 08/11/17 10:01 Last Admin: 08/10/17 10:01 Dose: 875 mg Atorvastatin Calcium (Lipitor) 40 mg PO QHS [facility] Last Admin: 08/09/17 21:08 Dose: 40 mg Bisacodyl (Dulcolax) 10 mg RECTAL .PRN X 1 PRN PRN Reason: Constipation Clopidogrel Bisulfate (Plavix) 75 mg PO DAILY [facility] Last Admin: 08/10/17 10:01 Dose: 75 mg Enoxaparin Sodium (Lovenox) 40 mg SC DAILY@0600 [facility] Last Admin: 08/10/17 06:36 Dose: 40 mg Escitalopram Oxalate (Lexapro) 10 mg PO DAILY [facility] Last Admin: 08/10/17 10:01 Dose: 10 mg Lisinopril (Zestril) 10 mg PO DAILY [facility] Last Admin: 08/10/17 10:02 Dose: 10 mg Lorazepam (Ativan) 0.5 mg PO QHS PRN PRN PRN Reason: Insomnia Last Admin: 08/09/17 23:01 Dose: 0.5 mg Magnesium Hydroxide (Milk Of Magnesia) 30 ml PO .PRN X 1 PRN PRN Reason: Constipation Metoprolol Tartrate (Lopressor (Beta Jaleel)) 100 mg PO BID [facility] Last Admin: 08/10/17 10:01 Dose: 100 mg Neomycin/Polymyxin/Bacitracin (Neosporin Packet) 1 packet TOPICAL 0600,2200 [facility] PRN Reason: Protocol Last Admin: 08/10/17 06:37 Dose: 1 packet Nystatin (Mycostatin Powder) 1 applic TOPICAL 0600,2200 [facility] PRN Reason: Protocol Last Admin: 08/10/17 06:33 Dose: Not Given Senna/Docusate Sodium (Senokot-S, Latricia-Colace) 2 tablet PO BID [facility] Last Admin: 08/10/17 10:03 Dose: Not Given Medical Necessity - Tobacco Use Smoking Status: Former smoker Tobacco Use: Cigarettes Assessment/Plan Active and Suspected Problems Acute sialoadenitis (Acute) Thrush, oral (Acute) 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 Complicated by obstructive sleep apnea and hypertension. Goal of rehab is spiritism of prior level of functional independence. Plan: - Physical therapy for gait and balance - Occupational Therapy for ADLs - Bowel protocol - As needed analgesics - DVT prophylaxis: Lovenox - Blood pressure control - Obstructive sleep apnea: Currently on home BiPAP, which he is tolerating. He will need an outpatient sleep study ever since his last study was greater than 4 years ago. - Started on Augmentin 875mg BID for swollen salivary gland - Depression -> add Lexapro 10mg - Hypercoagulation panel
[2017-08-10 20:23] VITALS: BP 113/68; PULSE 54; RESP 16; TEMP 36.6; O2SAT 93
[2017-08-10] MEDS: Nystatin Powder 15gm Bottle 1 APPLIC TOPICAL (20:31)
[2017-08-10] MEDS: Atorvastatin Calcium 40 MG Tablet PO (20:33)
[2017-08-10] MEDS: LORazepam 0.5 MG Tablet PO (20:36)
[2017-08-10 22:25] VITALS: BP 113/64; PULSE 54
[2017-08-10 22:33] VITALS: BP 113/64; PULSE 54
--- NOTE | 2017-08-10 22:33 | NURSING ---
HOSPITALIST, DR OWENS, NOTIFIED OF PT'S PULSE. ORDER TO HOLD THIS DOSE OF LOPRESSOR.
[2017-08-11 05:00] VITALS: BMI 48.4
[2017-08-11] MEDS: Enoxaparin 40 MG/0.4 ML Syringe SC (06:25)
[2017-08-11] MEDS: Nystatin Powder 15gm Bottle 1 APPLIC TOPICAL ×2 (06:25→19:57)
[2017-08-11 08:14] VITALS: BP 136/83; PULSE 62; RESP 17; TEMP 36.8; O2SAT 93
--- NOTE | 2017-08-11 10:14 | PCM.PN.NEU ---
Patient Problems: Active and Suspected Problems Acute sialoadenitis (Acute) Thrush, oral (Acute) Subjective: Staffed in team meeting. at bedside. Questions answered. With Physical therapy, patient is able to walk about 200 -250 feet with walker at stand by assist. He is able to do the TUG in 32 seconds, the Chair sit and rn clinical research 30 seconds he is able to do 10 safely. He is able to go up and down 10 steps using one hand rail at contact guard to minimal assist. With Occupational therapy, He is stand by assist for dressing upper body and using aides for lower body dressing. He requires contact guard for toileting, getting on and off the toilet, he does need help with toilet hygiene. With Speech therapy, he is tolerating a regular diet with thin liquids. He still has some mild slurried speech and they are working on strengthening the muscles of his lips and tongue with oral exercises. With Nursing he finishes his dose of Augmentin 875mg today for a swollen salivary gland on his right side. Per the team he is doing very well will discharge home on Saturday 08/12 with outpatient Physical therapy, Occupational therapy and Speech therapy. Will set up outpatient follow up appointments with ENT for his Salivary gland, Ophthalmology for his eyes, and Neurology. - Physical Exam General: Alert, Oriented x3, Cooperative HEENT: Atraumatic, PERRLA, EOMI, Normocephalic Neck: Supple, No JVD, Negative Carotid Bruits Lungs: Clear to auscultation, Normal air movement Cardiovascular: Regular rate, No murmurs Abdomen: Bowel Sounds Present, Soft, Non Tender Extremities: No edema, Capillary Refill Less than 3 Seconds Skin: No rashes, No breakdown Musculoskeletal: No Tenderness to Palpation of Joints or Extremities Neurological: Cranial nerves II-XII grossly intact Psych/Mental Status: Normal Affect, Appropriate, Alert and oriented to time, place, person, mood and affect Vital Signs Temp Pulse Resp BP Pulse Ox 98.2 F 62 17 136/83 H 93 08/11/17 08:14 08/11/17 08:14 08/11/17 08:14 08/11/17 08:14 08/11/17 08:14 Oxygen Delivery Method Room Air Weight: 127.7 kg Body Mass Index (BMI) 48.4 Finger Stick Blood Glucose 173 Intake and Output for Last 24 Hours 08/09/17 08/10/17 08/11/17 23:59 23:59 23:59 Intake Total 500 / 500 780 / 780 320 / 320 Balance 500 / 500 780 / 780 320 / 320 Active Medications Acetaminophen (Tylenol) 650 mg PO Q6H PRN PRN PRN Reason: PAIN Last Admin: 08/09/17 19:47 Dose: 650 mg Amlodipine Besylate (Norvasc) 10 mg PO DAILY [facility] Last Admin: 08/10/17 10:01 Dose: 10 mg Aspirin (Aspirin, Baby) 81 mg PO DAILY@0800 [facility] Atorvastatin Calcium (Lipitor) 40 mg PO QHS [facility] Last Admin: 08/10/17 20:33 Dose: 40 mg Bisacodyl (Dulcolax) 10 mg RECTAL .PRN X 1 PRN PRN Reason: Constipation Clopidogrel Bisulfate (Plavix) 75 mg PO DAILY [facility] Last Admin: 08/10/17 10:01 Dose: 75 mg Enoxaparin Sodium (Lovenox) 40 mg SC DAILY@0600 [facility] Last Admin: 08/11/17 06:25 Dose: 40 mg Escitalopram Oxalate (Lexapro) 10 mg PO DAILY [facility] Last Admin: 08/10/17 10:01 Dose: 10 mg Lisinopril (Zestril) 10 mg PO DAILY [facility] Last Admin: 08/10/17 10:02 Dose: 10 mg Lorazepam (Ativan) 0.5 mg PO QHS PRN PRN PRN Reason: Insomnia Last Admin: 08/10/17 20:36 Dose: 0.5 mg Magnesium Hydroxide (Milk Of Magnesia) 30 ml PO .PRN X 1 PRN PRN Reason: Constipation Metoprolol Tartrate (Lopressor (Beta Jaleel)) 25 mg PO BID [facility] Metoprolol Tartrate (Lopressor (Beta Jaleel)) 50 mg PO BID [facility] Neomycin/Polymyxin/Bacitracin (Neosporin Packet) 1 packet TOPICAL 0600,2200 [facility] PRN Reason: Protocol Last Admin: 08/11/17 06:25 Dose: 1 packet Nystatin (Mycostatin Powder) 1 applic TOPICAL 0600,2200 [facility] PRN Reason: Protocol Last Admin: 08/11/17 06:25 Dose: 1 applicatio Senna/Docusate Sodium (Senokot-S, Latricia-Colace) 2 tablet PO BID [facility] Last Admin: 08/10/17 20:30 Dose: Not Given Medical Necessity - Tobacco Use Smoking Status: Former smoker Tobacco Use: Cigarettes Assessment/Plan Active and Suspected Problems Acute sialoadenitis (Acute) Thrush, oral (Acute) 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 Complicated by obstructive sleep apnea and hypertension. Goal of rehab is jew of prior level of functional independence. Plan: - Physical therapy for gait and balance - Occupational Therapy for ADLs - Bowel protocol - As needed analgesics - DVT prophylaxis: Lovenox - Blood pressure control - Obstructive sleep apnea: Currently on home BiPAP, which he is tolerating. He will need an outpatient sleep study ever since his last study was greater than 4 years ago. - Started on Augmentin 875mg BID for swollen salivary gland - Depression -> add Lexapro 10mg - Hypercoagulation panel -> Pending results - Plan is d/c home Saturday 08/12 with Outpatient Physical therapy, Occupational therapy and Speech therapy.
--- NOTE | 2017-08-11 10:17 | PN.NEURO_ITS ---
Patient Problems: Active and Suspected Problems Acute sialoadenitis (Acute) Thrush, oral (Acute) Subjective: Staffed in team meeting. at bedside. Questions answered. With Physical therapy, patient is able to walk about 200 -250 feet with walker at stand by assist. He is able to do the TUG in 32 seconds, the Chair sit and grinding machine operator 30 seconds he is able to do 10 safely. He is able to go up and down 10 steps using one hand rail at contact guard to minimal assist. With Occupational therapy, He is stand by assist for dressing upper body and using aides for lower body dressing. He requires contact guard for toileting, getting on and off the toilet , he does need help with toilet hygiene. With Speech therapy, he is tolerating a regular diet with thin liquids. He still has some mild slurried speech and they are working on strengthening the muscles of his lips and tongue with oral exercises. With Nursing he finishes his dose of Augmentin 875mg today for a swollen salivary gland on his right side. Per the team he is doing very well will discharge home on Saturday 08/12 with outpatient Physical therapy, Occupational therapy and Speech therapy. Will set up outpatient follow up appointments with ENT for his Salivary gland, Ophthalmology for his eyes, and Neurology. - Physical Exam General: Alert, Oriented x3, Cooperative HEENT: Atraumatic, PERRLA, EOMI, Normocephalic Neck: Supple, No JVD, Negative Carotid Bruits Lungs: Clear to auscultation, Normal air movement Cardiovascular: Regular rate, No murmurs Abdomen: Bowel Sounds Present, Soft, Non Tender Extremities: No edema, Capillary Refill Less than 3 Seconds Skin: No rashes, No breakdown Musculoskeletal: No Tenderness to Palpation of Joints or Extremities Neurological: Cranial nerves II-XII grossly intact Psych/Mental Status: Normal Affect, Appropriate, Alert and oriented to time, place, person, mood and affect Vital Signs Temp Pulse Resp BP Pulse Ox 98.2 F 62 17 136/83 H 93 08/11/17 08:14 08/11/17 08:14 08/11/17 08:14 08/11/17 08:14 08/11/17 08:14 Oxygen Delivery Method Room Air Weight: 127.7 kg Body Mass Index (BMI) 48.4 Finger Stick Blood Glucose 173 Intake and Output for Last 24 Hours 08/09/17 08/10/17 08/11/17 23:59 23:59 23:59 Intake Total 500 / 500 780 / 780 320 / 320 Balance 500 / 500 780 / 780 320 / 320 Active Medications Acetaminophen (Tylenol) 650 mg PO Q6H PRN PRN PRN Reason: PAIN Last Admin: 08/09/17 19:47 Dose: 650 mg Amlodipine Besylate (Norvasc) 10 mg PO DAILY [facility] Last Admin: 08/10/17 10:01 Dose: 10 mg Aspirin (Aspirin, Baby) 81 mg PO DAILY@0800 [facility] Atorvastatin Calcium (Lipitor) 40 mg PO QHS [facility] Last Admin: 08/10/17 20:33 Dose: 40 mg Bisacodyl (Dulcolax) 10 mg RECTAL .PRN X 1 PRN PRN Reason: Constipation Clopidogrel Bisulfate (Plavix) 75 mg PO DAILY [facility] Last Admin: 08/10/17 10:01 Dose: 75 mg Enoxaparin Sodium (Lovenox) 40 mg SC DAILY@0600 [facility] Last Admin: 08/11/17 06:25 Dose: 40 mg Escitalopram Oxalate (Lexapro) 10 mg PO DAILY [facility] Last Admin: 08/10/17 10:01 Dose: 10 mg Lisinopril (Zestril) 10 mg PO DAILY [facility] Last Admin: 08/10/17 10:02 Dose: 10 mg Lorazepam (Ativan) 0.5 mg PO QHS PRN PRN PRN Reason: Insomnia Last Admin: 08/10/17 20:36 Dose: 0.5 mg Magnesium Hydroxide (Milk Of Magnesia) 30 ml PO .PRN X 1 PRN PRN Reason: Constipation Metoprolol Tartrate (Lopressor (Beta Jaleel)) 25 mg PO BID [facility] Metoprolol Tartrate (Lopressor (Beta Jaleel)) 50 mg PO BID [facility] Neomycin/Polymyxin/Bacitracin (Neosporin Packet) 1 packet TOPICAL 0600,2200 [facility] PRN Reason: Protocol Last Admin: 08/11/17 06:25 Dose: 1 packet Nystatin (Mycostatin Powder) 1 applic TOPICAL 0600,2200 [facility] PRN Reason: Protocol Last Admin: 08/11/17 06:25 Dose: 1 applicatio Senna/Docusate Sodium (Senokot-S, Latricia-Colace) 2 tablet PO BID [facility] Last Admin: 08/10/17 20:30 Dose: Not Given Medical Necessity - Tobacco Use Smoking Status: Former smoker Tobacco Use: Cigarettes Assessment/Plan Active and Suspected Problems Acute sialoadenitis (Acute) Thrush, oral (Acute) 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 Complicated by obstructive sleep apnea and hypertension. Goal of rehab is zoroastrianism of prior level of functional independence. Plan: - Physical therapy for gait and balance - Occupational Therapy for ADLs - Bowel protocol - As needed analgesics - DVT prophylaxis: Lovenox - Blood pressure control - Obstructive sleep apnea: Currently on home BiPAP, which he is tolerating. He will need an outpatient sleep study ever since his last study was greater than 4 years ago. - Started on Augmentin 875mg BID for swollen salivary gland - Depression -> add Lexapro 10mg - Hypercoagulation panel -> Pending results - Plan is d/c home Saturday 08/12 with Outpatient Physical therapy, Occupational therapy and Speech therapy.
[2017-08-11 10:25] VITALS: BP 136/83; PULSE 62
[2017-08-11] MEDS: amLODIPine 10 MG Tablet PO (10:25)
[2017-08-11] MEDS: Clopidogrel Bisulfate 75 MG Tablet PO (10:25)
[2017-08-11] MEDS: Lisinopril 10 MG Tablet PO (10:25)
[2017-08-11] MEDS: Metoprolol Tartrate 25 MG Tablet PO ×2 (10:25→19:55)
[2017-08-11] MEDS: Escitalopram Oxalate 10 MG Tablet PO (10:26)
[2017-08-11] MEDS: Amox/Clavulanate 875 MG Tablet PO (10:26)
[2017-08-11 10:34] VITALS: BP 136/83; PULSE 62
[2017-08-11 10:42] VITALS: BMI 48.4
--- NOTE | 2017-08-11 11:59 | CASEMGMT ---
Team meeting held. Patient present as well as patient spouse. Patient requesting for discharge date to be set for 08/12/17. Team is agreeable to discharge date. Patient plans to discharge home with spouse. Physical, Occupational and Speech therapy are recommending for patient to continue with further services through outpatient care. Patient is agreeable to recommendation and requesting for outpatient therapy services to be set up through [facility]. Patient also reporting to need a walker. Patient does not have a preference of [employer] to be utilized. Patient spouse plans to provide transportation home for patient at time of discharge. Support given. Telephone call to Halina Barr. This social worker clinical making referral for walker. Halina to have walker delivered to patient room prior to patient discharge. Order faxed. Telephone call to [facility]. Making referral for physical, occupational, and speech therapy outpatient services. Appointment set up for 08/17/17 with all three disciplines for evaluations only. Physical therapy @ 12:30; Occupational therapy @ 1:30 and Speech therapy @ 2:30. Reminder given to patient. Proposed discharge date: 08/12/17 PLAN: Discharge home with spouse and outpatient therapy services. Karyn NOWAK, [employer] SERVICES MANAGER
[2017-08-11] MEDS: Atorvastatin Calcium 40 MG Tablet PO (19:54)
[2017-08-11 19:55] VITALS: BP 135/77; PULSE 63
[2017-08-11 20:07] VITALS: BP 135/77; PULSE 63; RESP 18; TEMP 37.2; O2SAT 94
[2017-08-11] MEDS: LORazepam 0.5 MG Tablet PO (21:29)
--- NOTE | 2017-08-11 23:51 | NURSING ---
Reviewed and agree with LPNs handoff
[2017-08-12] MEDS: Nystatin Powder 15gm Bottle 1 APPLIC TOPICAL (06:00)
[2017-08-12] MEDS: Enoxaparin 40 MG/0.4 ML Syringe SC (06:00)
[2017-08-12 08:27] VITALS: BP 150/93; PULSE 82; RESP 17; TEMP 36.8; O2SAT 94
[2017-08-12] MEDS: Aspirin 81 MG TAB.CHEW PO (08:37)
[2017-08-12] MEDS: amLODIPine 10 MG Tablet PO (08:38)
[2017-08-12] MEDS: Escitalopram Oxalate 10 MG Tablet PO (08:38)
[2017-08-12] MEDS: Clopidogrel Bisulfate 75 MG Tablet PO (08:38)
[2017-08-12] MEDS: Lisinopril 10 MG Tablet PO (08:38)
[2017-08-12 08:42] VITALS: BP 150/93; PULSE 82
[2017-08-12] MEDS: Metoprolol Tartrate 25 MG Tablet PO (08:42)
--- NOTE | 2017-08-12 08:50 | PCM.RU.DC ---
Rehab Discharge Summary DATE OF ADMISSION: 07/29/17 DATE OF DISCHARGE: 08/12/17 - Rehab Diagnosis CVA Discharge Diet: 2000 mg Sodium Diet Discharge Activity: May Not Drive, May Shower, May Take a Tub Bath, Use Walker Weight Bearing Status: Weight bearing as tolerated Call your doctor if you observe: Fever of 101 or Higher, Coldness, Increased Pain, Numbness or Tingling, Change in Color, Inability to urinate, Inability to have a bowel movement, Using more than one pad per hour, Shortness of breath, Dizziness, Fainting spells, Swelling in the ankles, Chest pain, Prolonged hiccoughing, Increased palpitations (irregular heartbeat), Calf discomfort, Uncontrolled pain Home Medications: Medications to take at Discharge Acetaminophen [Tylenol Tablet] 650 mg PO Q6H PRN PRN tablet 08/12/17 Amlodipine [Norvasc] 10 mg PO DAILY #30 tab 08/12/17 Aspirin [Aspirin, Baby] 81 mg PO DAILY@0800 tab.chew 08/12/17 Atorvastatin Calcium [Lipitor] 40 mg PO QHS #30 tab 08/12/17 Clopidogrel Bisulfate [Plavix] 75 mg PO DAILY #30 tab 08/12/17 Escitalopram Oxalate [Lexapro] 10 mg PO DAILY #30 tab 08/12/17 Lisinopril [Zestril] 10 mg PO DAILY #30 tab 08/12/17 Lorazepam [Ativan] 0.5 mg PO QHS PRN PRN #20 tab 08/12/17 Metoprolol Tartrate [Lopressor (beta fatimah)] 25 mg PO BID #60 tab 08/12/17 Neomycin/Bacitracin/Polymyxin [Neosporin Packet] 1 packet TOPICAL 0600,2200 packet 08/12/17 Nystatin Powder [Mycostatin Powder] 1 applic TOPICAL 0600,2200 bottle 08/12/17 Following Prescrptions Were Given to Patient: Amlodipine [Norvasc] 10 mg PO DAILY #30 tab Atorvastatin Calcium [Lipitor] 40 mg PO QHS #30 tab Clopidogrel Bisulfate [Plavix] 75 mg PO DAILY #30 tab Escitalopram Oxalate [Lexapro] 10 mg PO DAILY #30 tab Lisinopril [Zestril] 10 mg PO DAILY #30 tab Lorazepam [Ativan] 0.5 mg PO QHS PRN PRN #20 tab PRN Reason: Insomnia Metoprolol Tartrate [Lopressor (beta fatimah)] 25 mg PO BID #60 tab Primary Care Physician: Thais Fox MD [Primary Care Provider] - Please Follow Up With: [facility] Please Follow Up With: Chin Zuirta MD [facility] Please Follow Up With: Janice Guzman NP-C Disposition: Home - with outpatient Physical therapy, Occupational therapy, and Speech therapy Minutes spent on discharge:: 40 Patient Condition:: Good Rehab Course The patient is a 52 year old left-handed male who was admitted to [facility] acute rehab unit after a hospitalization for stroke, symptoms of which occurred on 07/27/17. Initially presented with slurred speech and balance trouble, as well as right ear pain. He began to experience worsening of his speech after the first day of hospitalization but this has stabilized. He is previously diagnosed with obstructive sleep apnea but was noncompliant and his last sleep study was greater than 4 years ago. He did take aspirin 81 mg per day. He also noted that his blood pressures were high at home. He was admitted to the hospital, workup included MRI which showed a small left pontine infarct consistent with his symptoms. Therapies were initiated and it was felt that he was appropriate for rehab. He was admitted to the rehab unit with a goal of improving his functional status of that he could return home to his previous level of functional independence. With Physical therapy, patient is able to walk about 200 -250 feet with walker at stand by assist. He is able to do the TUG in 32 seconds, the Chair sit and power transmission engineer 30 seconds he is able to do 10 safely. He is able to go up and down 10 steps using one hand rail at contact guard to minimal assist. With Occupational therapy, He is stand by assist for dressing upper body and using aides for lower body dressing. He requires contact guard for toileting, getting on and off the toilet, he does need help with toilet hygiene. With Speech therapy, he is tolerating a regular diet with thin liquids. He still has some mild slurried speech and they are working on strengthening the muscles of his lips and tongue with oral exercises. With Nursing he finishes his dose of Augmentin 875mg on 08/11/17 for a swollen salivary gland on his right side. Per the team he is doing very well will discharge home on Saturday 08/12 with outpatient Physical therapy, Occupational therapy and Speech therapy. Will set up outpatient follow up appointments with ENT for his Salivary gland, Ophthalmology for his eyes, and Neurology. Meaningful Use Info Meaningful Use Diagnoses (Choose all that apply): Ischemic CVA - CVA Therapy Assessed for PT,OT and/or ST?: Yes - Ischemic Stroke Antithrombotic order at d/c?: Yes Dx of Atrial fib/flutter?: No Anticoagulant at discharge?: No Reason anticoagulant not ordered: Treatment not Indicated Statins at discharge?: Yes Primary Dx Acute Ischemic CVA?: Yes IV tPA ordered during stay?: No Reason IV t-PA not ordered: Treatment not Indicated
--- NOTE | 2017-08-12 08:57 | PCM.DC ---
- Discharge Diagnoses Current Active Problems: Current Active and Chronic Problems Acute sialoadenitis (Acute) Thrush, oral (Acute) Reason(s) for Visit for Discharge Instructions: CVA You will use the following diet at home:: Cardiac Your food should be the consistency of: Regular Your liquids should be the consistency of: Regular/Thin Discharge Activity: May Not Drive, May Shower, May Take a Tub Bath, Use Walker Weight Bearing Status: Weight bearing as tolerated Call your doctor if you observe: Fever of 101 or Higher, Coldness, Increased Pain, Numbness or Tingling, Change in Color, Inability to urinate, Inability to have a bowel movement, Using more than one pad per hour, Shortness of breath, Dizziness, Fainting spells, Swelling in the ankles, Chest pain, Prolonged hiccoughing, Increased palpitations (irregular heartbeat), Calf discomfort, Uncontrolled pain Allergies/Adverse Reactions: Allergies abciximab [From Reopro] Allergy (Verified 07/27/17 13:11) SEVERE THROMBOCYTOPENIA Medications to take at Discharge Acetaminophen [Tylenol Tablet] 650 mg PO Q6H PRN PRN tablet 08/12/17 Amlodipine [Norvasc] 10 mg PO DAILY #30 tab 08/12/17 Aspirin [Aspirin, Baby] 81 mg PO DAILY@0800 tab.chew 08/12/17 Atorvastatin Calcium [Lipitor] 40 mg PO QHS #30 tab 08/12/17 Clopidogrel Bisulfate [Plavix] 75 mg PO DAILY #30 tab 08/12/17 Escitalopram Oxalate [Lexapro] 10 mg PO DAILY #30 tab 08/12/17 Lisinopril [Zestril] 10 mg PO DAILY #30 tab 08/12/17 Lorazepam [Ativan] 0.5 mg PO QHS PRN PRN #20 tab 08/12/17 Metoprolol Tartrate [Lopressor (beta fatimah)] 25 mg PO BID #60 tab 08/12/17 Neomycin/Bacitracin/Polymyxin [Neosporin Packet] 1 packet TOPICAL 0600,0 packet 08/12/17 Nystatin Powder [Mycostatin Powder] 1 applic TOPICAL 0600,2200 bottle 08/12/17 The following prescriptions were given: Amlodipine [Norvasc] 10 mg PO DAILY #30 tab Atorvastatin Calcium [Lipitor] 40 mg PO QHS #30 tab Clopidogrel Bisulfate [Plavix] 75 mg PO DAILY #30 tab Escitalopram Oxalate [Lexapro] 10 mg PO DAILY #30 tab Lisinopril [Zestril] 10 mg PO DAILY #30 tab Lorazepam [Ativan] 0.5 mg PO QHS PRN PRN #20 tab PRN Reason: Insomnia Metoprolol Tartrate [Lopressor (beta fatimah)] 25 mg PO BID #60 tab Primary Care Physician: Thais Fox MD [Primary Care Provider] - Please Follow Up With: [facility] Please Follow Up With: Chin Zurita MD [facility] Please Follow Up With: Janice Guzman NP-C Proposed Discharge Date: 08/12/17
[2017-08-12 09:27] VITALS: BP 150/93; PULSE 82; RESP 17; TEMP 36.8; O2SAT 94
--- NOTE | 2017-08-12 12:39 | PN_ITS ---
Patient Problems: Active and Suspected Problems Acute sialoadenitis (Acute) Thrush, oral (Acute) Subjective: Since seen plan is for patient to be discharged home this afternoon Objective: GENERAL: cooperative HEENT: Clear conjunctiva, NECK; supple, normal thyroid, CHEST: Clear to auscultation bilaterally, HEART: Regular S1 S2, no audible murmurs ABDOMEN: soft, non-tender, normoactive bowel sounds, RECTAL: deferred EXTREMITIES: No edema, no clubbing, no cyanosis. ORDERING BOX OPERATOR: Right upper extremity paresis, left facial droop SKIN: No Rash Vitals/I&O's: Vital Signs Temp Pulse Resp BP Pulse Ox 98.3 F 82 17 150/93 H 94 08/12/17 08:27 08/12/17 08:42 08/12/17 08:27 08/12/17 08:42 08/12/17 08:27 Oxygen Delivery Method Room Air Weight: 127.7 kg Body Mass Index (BMI) 48.4 Finger Stick Blood Glucose 173 Intake and Output for Last 24 Hours 08/10/17 08/11/17 08/12/17 23:59 23:59 23:59 Intake Total 780 / 780 880 / 880 460 / 460 Balance 780 / 780 880 / 880 460 / 460 Current Medications Acetaminophen (Tylenol) 650 mg PO Q6H PRN PRN PRN Reason: PAIN Last Admin: 08/09/17 19:47 Dose: 650 mg Amlodipine Besylate (Norvasc) 10 mg PO DAILY [facility] Last Admin: 08/12/17 08:38 Dose: 10 mg Aspirin (Aspirin, Baby) 81 mg PO DAILY@0800 [facility] Last Admin: 08/12/17 08:37 Dose: 81 mg Atorvastatin Calcium (Lipitor) 40 mg PO QHS [facility] Last Admin: 08/11/17 19:54 Dose: 40 mg Bisacodyl (Dulcolax) 10 mg RECTAL .PRN X 1 PRN PRN Reason: Constipation Clopidogrel Bisulfate (Plavix) 75 mg PO DAILY [facility] Last Admin: 08/12/17 08:38 Dose: 75 mg Enoxaparin Sodium (Lovenox) 40 mg SC DAILY@0600 [facility] Last Admin: 08/12/17 06:00 Dose: 40 mg Escitalopram Oxalate (Lexapro) 10 mg PO DAILY [facility] Last Admin: 08/12/17 08:38 Dose: 10 mg Lisinopril (Zestril) 10 mg PO DAILY [facility] Last Admin: 08/12/17 08:38 Dose: 10 mg Lorazepam (Ativan) 0.5 mg PO QHS PRN PRN PRN Reason: Insomnia Last Admin: 08/11/17 21:29 Dose: 0.5 mg Magnesium Hydroxide (Milk Of Magnesia) 30 ml PO .PRN X 1 PRN PRN Reason: Constipation Metoprolol Tartrate (Lopressor (Beta Jaleel)) 25 mg PO BID [facility] Last Admin: 08/12/17 08:42 Dose: 25 mg Neomycin/Polymyxin/Bacitracin (Neosporin Packet) 1 packet TOPICAL 0600,2200 [facility] PRN Reason: Protocol Last Admin: 08/12/17 06:01 Dose: 1 packet Nystatin (Mycostatin Powder) 1 applic TOPICAL 0600,2200 [facility] PRN Reason: Protocol Last Admin: 08/12/17 06:00 Dose: 1 applicatio Senna/Docusate Sodium (Senokot-S, Latricia-Colace) 2 tablet PO BID [facility] Last Admin: 08/12/17 08:29 Dose: Not Given Medical Necessity - Tobacco Use Smoking Status: Former smoker Tobacco Use: Cigarettes Assessment/Plan Active and Suspected Problems Acute sialoadenitis (Acute) Thrush, oral (Acute) Patient is a 52-year-old gentleman with past medical history cigar for essential hypertension, CAD admitted with acute left pontine stroke. 1. 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 Coronary artery disease. Stable. Continue Plavix, statin, and metoprolol. 3. Hypertension-blood pressure controlled, home medications continued with dose adjustment as needed 4. Sleep apnea. Continue CPAP at HS. 5. Sialoadenitis; treated symptomatically with warm compresses as well as Augmentin initiated by ENT 6. Morbid obesity with BMI of 46.6 lifestyle modification including weight loss advised 7. DVT prophylaxis; Derek Code Visit Inpatient E&M: 02448 Subs Hosp L2
--- NOTE | 2017-08-12 13:54 | NURSING ---
Went over discharge instructions along with medications and FU appts. pt/spouse verbalized understanding, this RN answered all questions. Pt left with all personal belongings in hand, in stable condition.
--- NOTE | 2017-08-12 15:56 | CASEMGMT ---
Insurance Notified insurance of patient discharge on 08/12/17 to home with spouse with outpatient therapy services. Auth#[id number] Karyn NOWAK, TEACHING YOUNG
[2017-08-15 20:07] LABS: Factor VIII Activity 155 % (57-163); Intrinsic Factor Ab 53.5 AU/mL (0.0-1.1)
== END 2017-08-12 13:55 | disposition home or self-care (01) | DRG 57 ==
PROVIDERS: Hospitalist; Nurse Practitioner Acute Care; Admitting Provider Psychiatry & Neurology Neurology; Family Provider Internal Medicine; PCP Internal Medicine; Visit Provider Internal Medicine
DX: I69.322 Dysarthria following cerebral infarction (principal); Z68.42 Body mass index [BMI] 45.0-49.9, adult; B37.0 Candidal stomatitis; I69.328 Other speech and language deficits following cerebral infarction; I69.392 Facial weakness following cerebral infarction; Z87.891 Personal history of nicotine dependence; G47.33 Obstructive sleep apnea (adult) (pediatric); I25.10 Atherosclerotic heart disease of native coronary artery without angina pectoris; I10 Essential (primary) hypertension; E66.01 Morbid (severe) obesity due to excess calories; Z71.3 Dietary counseling and surveillance; Z95.5 Presence of coronary angioplasty implant and graft; K11.21 Acute sialoadenitis; H53.2 Diplopia; F32.9 Major depressive disorder, single episode, unspecified
CPT/HCPCS: 36415; 70480; 80053; 81240; 81241; 82962; 85027; 85240; 85245; 86340; 92507; 92523; 97110; 97112; 97116; 97162; 97166; 97530; 97535

== ENCOUNTER 2018-10-03 11:02 | Outpatient (RCR) | payer OTHER, SELFPAY ==
--- NOTE | 2018-10-03 12:02 | HP.PTEVAL_ITS ---
Patient's Visit Information VIVIANA JOHNSTON is a 53 year old M referred to Physical Therapy by DANTE Gentile with a diagnosis of Vertigo. Date of Evaluation: 10/03/18 Physical Therapist: Sudhir Norris, SHERIT, OCS, CSCS - Visit Plan Frequency: 2x /Week Duration: 4-6 Weeks Plan: 2x/week for 4-6 weeks for adaptation and habituation progression(given seated H VOR today 30-60 sec 5-8x/day. MSQ and habituation. Possibly balance and conditioning ex when appropriate - Subjective Findings: Dizzyness with standing or walking or twisting/moving head. Avoids mowing the lawn due to fear of crashing. Does not work or drive since CVA in July of 2017, over a year ago. Wh walker to get around unless has something to grab at home. Had therapy after stroke in rehab and then in [place]. Worked on balance and strength. Was doing HEP and working on strength in hands and face. Dizzyness is intermittent, worse in a moving vehicle. Gets a spinning sensation and feels nauseous sometimes. Closing eyes helps. Watched a movie with surround screen and it made him dizzy. Bending over and stadning too fast or turning head too quick can get him, sometime momentary and other times a few minutes. Stopping movement will help it to go away. Been that way since stroke. No recent falls. did fall into [employer] tree drifting to left last winter. Stroke effected R side of body. This is daily. Feels normal when not dizzy. Feels dizzy 50% of time he is up and moving around. Doing housework requires breaks multiple times when moving head. Dresses self and cooks and cleans with breaks. Fatigues easily even when not dizzy,. Sleeps well with bipaps. Used to work as a control tower operator. Usually feels good in bed. Has steps at home which he is very careful on with rail. Washer and dryer to base ment adn takes extra time. - Objective Ambulates with a wh walker slow 250 feet today , transfers I with UE. Standing balance ft not great and veers L with eyes closed. Tends wide ZAHRA adn minimal foot clearance with gait. safe with wh walker, CGA without it and slow. - B hallpike daniel test. clonus in R achilles otherwise 2/3 B patella and achilles. Sensation WNL to gross light touch in B LE. Strength is 4- R LE and 4/5 L, weakness in ankles and hips. Oculomotor: Slow saccades whcih cause symptoms, slow pursuit no symptoms. slow to correct convergence adn symptoms of double vision. - skew eye deviation. no nystagmus with gaze or head shake btu slow. VOR is symptomatic 7/10 after 20 seconds seated horizontal. Not able to do Functional gait assessment today but >20 seconds TUG and needs CGA to sidestep and Min A to ambulate BW without walker. - Goals Goal 1:: Feel dizzy is 50% improved. Goal Time Frame: 4-6 Weeks Goal 2:: Tolerate FGA without walker Goal Time Frame: 4-6 Weeks Goal 3:: Lower DHI by 20% Goal Time Frame: 4-6 Weeks Goal 4:: I appropr HEp to minimzie future problems Goal Time Frame: 4-6 Weeks Goal 5:: Pt feel confident getting on mower. Goal Time Frame: 4-6 Weeks - Rehabilitation Potential Physical Therapy Diagnosis: Likely central vertigo. Rehabilitation Potential: Fair - Anticipated Interventions Patient/Client Instruction: Educate patient on: Condition, Plan of Care For the Purpose of:: To increase tolerance to activity/condition/position, To improve balance Therapeutic Exercise to Include: Strength training, Balance training Comment: adaptationa dn habituation For the Purpose of:: To increase tolerance to activity/condition/position, To improve gait and locomotor functions Thank you for the opportunity to evaluate your patient. For Medicare and Medicare HMO plans, please review the plan of care and approve it. It will need to be FAXED BACK to us at [phone] for Medicare purposes. For Medicare only, by signing this I certify the plan of care. Please let me know if there are questions or concerns regarding this plan of care. Physician Signature: Date:
--- NOTE | 2018-11-30 10:52 | HP.PT.NRP ---
HP - Discharge Summary (1) - Patient Information VIVIANA JOHNSTON was seen in my office for initial evaluation on 10/03/18. The following Plan of Care was established for this patient: Initial Frequency: 2x /Week Initial Duration: 4-6 Weeks - Anticipated Interventions Patient/Client Instruction: Educate patient on: Condition, Plan of Care For the Purpose of:: To increase tolerance to activity/condition/position, To improve balance Therapeutic Exercise to Include: Strength training, Balance training For the Purpose of:: To increase tolerance to activity/condition/position, To improve gait and locomotor functions This patient was last seen in our office 10/03/18. Pertinent comments regarding their Physical therapy will appear below: Pt seen one visit evaluation adn POC established. Pt neglected to schedule or attend any further visits. It has been nearly two months at this point adn I will disocontinue due to non attendance. At this point I will be discontinuing this patient from physical therapy. I would be happy to see this patient again in the future if found appropriate by the physician. Thank you! Sudhir Norris, DPT, OCS, CSCS
== END 2018-10-03 19:00 | disposition home or self-care (01) ==
LOC: PT 11:02
PROVIDERS: Family Provider Internal Medicine; PCP Internal Medicine; Referring Provider Nurse Practitioner Family; Visit Provider Nurse Practitioner Family
DX: Z86.73 Personal history of transient ischemic attack (TIA), and cerebral infarction without residual deficits (principal); R42 Dizziness and giddiness
CPT/HCPCS: 97163

== ENCOUNTER → 2018-12-22 13:00 | Outpatient (CLI) | payer OTHER, SELFPAY ==
--- NOTE | 2018-12-22 13:03 | ECHOCS_ITS ---
Version 2 Reason For Study: CAD/ASHD Procedure This was a 2D Doppler, Color Flow transthoracic echocardiogram. The study was technically difficult. Contrast injection was performed. Exam performed in department. Left Ventricle Normal LV size. Left ventricular systolic function is normal. The estimated ejection fraction is 65 %. No regional wall motion abnormalities noted. Right Ventricle Normal RV size. Normal systolic function. Atria The left atrium is mildly enlarged. Normal right atrium. Mitral Valve Normal mitral valve. Tricuspid Valve Normal tricuspid valve. Aortic Valve Trisinus/trileaflet aortic valve. Pulmonic Valve Normal pulmonic valve. Great Vessels Normal aortic root. The pulmonary artery is normal size. Pericardium/Pleural No pericardial effusion. Medication 22 gauge I.V. with prn adaptor inserted into right arm. Diluted definity 5ml given slow IV push to enhance endocardial definition. MMode/2D Measurements & Calculations LVIDd: 4.2 cm IVSd: 1.4 cm LA dimension: 4.0 cm LVIDs: 2.7 cm LVPWd: 1.8 cm FS: 35.8 % LAV(MOD-sp4): 62.5 ml LA A4 area: 20.8 cm2 Time Measurements MV dec time: 0.25 sec Doppler Measurements & Calculations MV E max fazal: 100.5 cm/sec Lat Peak E' Fazal: 14.6 cm/sec Med Peak E' Fazal: 7.0 cm/sec MV A max fazal: 84.0 cm/sec E/E' lat: 6.9 E/E' med: 14.4 MV E/A: 1.2 MV V2 max: 105.9 cm/sec MV P1/2t max fazal: 108.8 cm/sec Ao V2 max: 147.3 cm/sec MV max P.5 mmHg MV P1/2t: 89.6 msec Ao max P.7 mmHg MV V2 mean: 54.5 cm/sec MV dec slope: 355.7 cm/sec2 MV mean P.4 mmHg MV V2 VTI: 40.7 cm MVA(P1/2t): 2.5 cm2 LV V1 max: 117.3 cm/sec PA V2 max: 105.0 cm/sec LV V1 max P.5 mmHg Interpretation Summary Normal LV size. Left ventricular systolic function is normal. The estimated ejection fraction is 65 %. Contrast injection was performed. The study was technically limited. The study was technically difficult. Ordering Physician: Nas Torres Referring Physician: Nas Torres V Performed By: Rodríguez Mcclain RCS
== END ==
LOC: CVS 13:02
PROVIDERS: Family Provider Internal Medicine; PCP Internal Medicine; Referring Provider Internal Medicine Pulmonary Disease; Visit Provider Internal Medicine Pulmonary Disease
DX: Z86.79 Personal history of other diseases of the circulatory system (principal); G47.33 Obstructive sleep apnea (adult) (pediatric)
CPT/HCPCS: 93306; Q9957; A4216; C8929

== ENCOUNTER → 2019-03-05 15:56 | Outpatient (CLI) | payer OTHER, SELFPAY ==
[2019-01-03 15:51] VITALS: BMI 53.5
[2019-03-05 17:51] LABS: Amphetamine Urine VISTA NEGATIVE (<1000 ng/mL); Barbiturate Urine VISTA NEGATIVE (< 200 ng/mL); Benzodiazepine Urine VISTA NEGATIVE (< 200 ng/mL); Cocaine Urine VISTA NEGATIVE (< 300 ng/mL); Ecstacy Urine VISTA NEGATIVE (< 500 ng/mL); Methadone Urine VISTA NEGATIVE (< 300 ng/mL); PCP Urine VISTA NEGATIVE (< 25 ng/mL); THC Urine VISTA NEGATIVE (< 50 ng/mL); Vista UDS pH Range 5
== END ==
LOC: MTLAB 16:00
PROVIDERS: Family Provider Internal Medicine; PCP Internal Medicine; Referring Provider Internal Medicine Pulmonary Disease; Visit Provider Internal Medicine Pulmonary Disease
DX: G47.33 Obstructive sleep apnea (adult) (pediatric) (principal); G47.31 Primary central sleep apnea
CPT/HCPCS: 80307

== ENCOUNTER 2022-01-02 09:22 | Observation (INO) | payer MEDICARE, SELFPAY ==
[2022-01-02] VITALS (12 sets, daily range): BP systolic 104–141; BP diastolic 74–90; PULSE 53–67; RESP 14–20; TEMP 36.2–36.7; O2SAT 97–100; BMI 48.3; BMI 46.2
--- NOTE | 2022-01-02 09:45 | EKG12_ITS ---
Test Reason : CP Blood Pressure : / mmHG Vent. Rate : 061 BPM Atrial Rate : 061 BPM P-R Int : 180 ms QRS Dur : 106 ms QT Int : 426 ms P-R-T Axes : 047 004 061 degrees QTc Int : 428 ms Normal sinus rhythm Low voltage QRS Possible Inferior infarct , age undetermined Abnormal ECG Confirmed by TOYA LOO, BRANDON ([id number]), supervising editor news reel ALETA BRYAN ([id number]) on 01/04/2022 10:40:53 AM Referred By: CLIFFORD Confirmed By:BRANDON PITTMAN MD
--- NOTE | 2022-01-02 09:52 | EDS_ITS ---
HPI History of Present Illness Chief Complaint: Chest Pain Narrative Narrative: 56-year-old male with a history of CAD, [place], cardiac stents x3, CVA, hyperlipidemia and hypertension presenting with chest discomfort which began at 430 this morning. He states it felt like he was having acid reflux but also describes pressure in the chest. He states that he took Pepto-Bismol and went back to sleep however it came back later in the morning and he woke up his which is atypical for him. Patient states that he has not had any nausea and has not vomited. Last evening he ate yogurt, steamed green beans, sloppy Mehran's which were homemade. He states this was not typically cause him any dyspepsia. Patient states that this is how his previous cardiac event occurred and he felt worried that it was happening again. Patient has not had fever, chills, cough. He is not having any abdominal pain. He states he is currently pain-free and feels well. Last cath was 12/10/2017. Last echocardiogram was performed 12/22/2018. The patient states that he had the echocardiogram performed because he was in the ER for chest pain and was admitted and then had a stroke while on the floor. [facility] Medical History Acute sialoadenitis Asthma Atherosclerosis of coronary artery of [place] heart without angina pectoris Central sleep apnea CVA (cerebral vascular accident) (07/2017) Depressive disorder Essential hypertension History of non-ST elevation myocardial infarction (NSTEMI) (07/18/11) Hyperlipidemia Left calcaneal fracture Lupus Morbid obesity with BMI of 45.0-49.9, adult Osteoarthritis Psoriatic arthropathy Thrush, oral Type 2 diabetes mellitus without complication Home Medications aspirin 81 mg chewable tablet 81 mg PO DAILY@0800 08/12/17 [Rx Last Taken Unknown] metformin 1,000 mg tablet 1,000 mg PO BID 12/29/18 [History Last Taken Unknown] amlodipine 10 mg tablet 10 mg PO DAILY blood pressure #90 tabs 08/06/19 [Rx Last Taken Unknown] lisinopril 10 mg tablet 10 mg PO DAILY #90 tabs 08/06/19 [Rx Last Taken Unknown] metoprolol tartrate 25 mg tablet 25 mg PO BID #180 tabs 08/06/19 [Rx Last Taken Unknown] atorvastatin 80 mg tablet 80 mg PO QHS 10/03/20 [History Last Taken Unknown] dulaglutide 1.5 mg/0.5 mL subcutaneous pen injector 1.5 mg subcut QWEEK 10/03/20 [History Last Taken Unknown] escitalopram oxalate 20 mg tablet 20 mg PO DAILY 10/03/20 [History Last Taken Unknown] glipizide 5 mg tablet 5 mg PO DAILY 10/03/20 [History Last Taken Unknown] Allergy/AdvReac Type Severity Reaction Status Date / Time abciximab [From Reopro] Allergy SEVERE Verified 01/02/22 09:25 THROMBOCYTOPENIA Family History Father Diabetes Surgical History History of coronary artery stent placement (07/18/11) History of left heart catheterization (12/10/14) Social History Smoking Status: Current some day smoker tobacco type: cigarettes how long ago did patient quit smokin years ago alcohol intake: current details: rarely substance use type: does not use ROS ROS ED Constitutional Constitutional ED: Denies chills or fever(s) Eyes Eyes: Denies blurry vision or change in vision Cardiovascular Cardiovascular: Reports as per HPI; Denies racing heartbeat Respiratory/Chest Respiratory/Chest: Denies cough or dyspnea Gastrointestinal Gastrointestinal: Denies abdominal pain, nausea or vomiting Genitourinary Genitourinary ED: Denies dysuria or hematuria Musculoskeletal Musculoskeletal: Denies arthralgias or back pain Integumentary Denies abscess Neurologic Neurologic: Denies headache(s) or paresthesias Psychiatric Psychiatric: Denies anxiety EXAM Physical Exam Const Vital Signs: 01/02/22 09:23 01/02/22 09:34 01/02/22 09:22 Temperature 97.9 F Temperature Source Temporal Pulse Rate 66 60 Respiratory Rate 18 19 H Respiratory Effort Normal Non-Labored Blood Pressure 135/90 H 140/83 H Blood Pressure Mean 105 102 Pulse Ox 97 98 Oxygen Delivery Method Room Air Room Air 01/02/22 09:45 01/02/22 10:23 01/02/22 12:28 Temperature Temperature Source Pulse Rate 60 54 L Respiratory Rate 19 H 18 Respiratory Effort Blood Pressure 119/81 H 126/88 H Blood Pressure Mean 93 100 Pulse Ox 97 97 Oxygen Delivery Method Room Air Room Air Room Air Positive well nourished General Appearance ED: NAD; Negative for pallor HEENT Reports moist mucous membranes normocephalic and atraumatic Eyes PERRL and EOMs intact bilaterally Neck no lymphadenopathy Resp normal respiratory effort and clear to auscultation bilaterally Auscultation: Negative for rales, rhonchi or wheezes Cardio regular rate and regular rhythm GI normal to inspection, nondistended, normoactive bowel sounds Extremity normal to inspection General Extremety ED: Negative for edema or tenderness General Extremity: Negative for edema Neuro oriented x3 and CN's II-XII intact bilaterally Sensorium / Orientation: awake and alert Motor Exam: strength 5/5 throughout Psych mental status grossly normal Skin General Skin Exam: Negative for jaundice or pallor Heart Score History: Moderately Suspicious ECG: Normal Age: >45 - <65 years Risk Factors: >/= 3 Risk Factors or History of CAD Score: 4 MDM MDM MDM Narrative Medical decision making narrative: Patient presenting with dyspepsia and chest pressure which began at 4:30 AM went away with Pepto-Bismol and then returned. He is currently pain-free. EKG obtained on arrival shows a sinus rhythm with a ventricular rate of 88 bpm without sign of ischemic change on my interpretation. CBC and BMP are unremarkable. Initial high-sensitivity troponin returned at 19. Patient is PERC negative. Chest x-ray on my interpretation shows no acute cardiopulmonary process and the radiologist does agree. Second high-sensitivity troponin came back at 35. I spoke with on-call cardiology and since he has a lot of risk factors and a distant cardiac catheterization it was recommended that he be admitted. Patient was amenable to admission. Impression: 1. chest pain Lab Data Attestation: I reviewed the patient's lab results. Labs: Laboratory Results - last 24 hr 01/02/22 01/02/22 01/02/22 10:00 10:00 12:00 WBC 6.6 RBC 4.47 L Hgb 14.7 Hct 42.9 MCV 96.0 H MCH 32.9 H MCHC 34.3 RDW Std Deviation 46.5 H RDW Coeff of Edin 13.2 Plt Count 239 MPV 8.3 Immature Gran % (Auto) 0.300 Neut % (Auto) 70.5 H Lymph % (Auto) 16.6 L [place] % (Auto) 5.9 Eos % (Auto) 6.2 H Baso % (Auto) 0.5 Absolute Neuts (auto) 4.6 Absolute Lymphs (auto) 1.09 Nucleated RBC % 0 Sodium 139 Potassium 3.9 Chloride 104 Carbon Dioxide 26.0 Anion Gap 9 BUN 14 Creatinine 0.76 Estim Creat Clear Calc 93.04 Est GFR (MDRD) Af Amer 136 Est GFR (MDRD) Non-Af 113 BUN/Creatinine Ratio 18.3 Glucose 129 H Calcium 9.0 Troponin I High Sens 19 35 Radiography Diagnostic Testing: Clinical Impression(s) from Imaging Studies Chest X-Ray 01/02/22 10:05 IMPRESSION: Normal x-ray examination of the chest. Electronically Signed: Robi Oliveira MD at 10:54 EDT , Discharge Plan Triage Chief Complaint: Chest Pain ED Provider: Albert Weathers Dx/Rx/DC Orders Primary Care Provider: Thais Fox
--- NOTE | 2022-01-02 10:05 | RAD_ITS ---
STUDY: X-RAY CHEST REASON FOR EXAM: Male, 56 years old. chest pain TECHNIQUE: Single AP portable view of the chest. COMPARISON: 07/27/2017 FINDINGS: The lungs are clear and expanded. There is no demonstrated pleural abnormality. Normal size heart. Normal mediastinum and maegan. Normal visualized pulmonary arteries. Normal visualized aortic arch and descending thoracic aorta. Normal visualized thoracic spine. Normal visualized ribs, clavicles, and shoulders. There is no demonstrated abnormality of the visualized soft tissue structures of the upper abdomen. RAD/Chest 1 View (Portable) IMPRESSION: Normal x-ray examination of the chest. Electronically Signed: Robi Oliveira MD at 10:54 EDT ,
[2022-01-02 10:09] LABS: Absolute Lymphocyte Count 1.09 X10^3/uL (0.83-4.51); Absolute Neutrophil Count 4.6 X10^3/uL (2.0-7.7); Basophil# 0.03 X10^3/uL; Basophil% 0.5 % (0-1); Eosinophil# 0.41 X10^3/uL; Eosinophils% 6.2 % (0-5); Hematocrit 42.9 % (40-54); Hemoglobin 14.7 g/dL (13.0-16.5); Lymphocyte # 1.09 X10^3/ul (0.83-4.51); Lymphocyte % 16.6 % (19-41); Mean Corp Hgb Conc 34.3 g/dL (32-36); Mean Corpuscular Hgb 32.9 pg (27.0-32.0); Mean Platelet Vol. 8.3 fl (6.2-12.0); Monocyte# 0.39 X10^3/uL; Monocyte% 5.9 % (0-10); NRBC Flagged by Analyzer 0 % (0-5); Neutrophil # 4.63 X10^3/uL (2.7-7.7); Neutrophil % 70.5 % (47-70); Platelet Count 239 K/mm3 (150-450); RBC Distribution Width CV 13.2 % (11.6-14.6); RBC Distribution Width SD 46.5 fl (35.1-43.9); Red Blood Count 4.47 M/mm3 (4.6-6.2); White Blood Count 6.6 K/mm3 (4.4-11.0)
[2022-01-02 10:31] LABS: Anion Gap 9 (5-15); BUN 14 mg/dL (7-18); BUN/Creat Ratio 18.3 RATIO (10-20); Chloride 104 mmol/L (98-107); Creatinine, Serum 0.76 mg/dL (0.70-1.30); EST Glomerular Filtration Rate 113 mL/min (>60); Est Glom Filt Rate - Afr Amer 136 mL/min (>60); Estimated Creatinine Clearance 93.04 ml/min; Glucose 129 mg/dL (74-106); Potassium 3.9 mmol/L (3.5-5.1); Sodium Level 139 mmol/L (136-145); Troponin-I HS (w/2H Reflex) 19 pg/mL (3.0-78.0)
[2022-01-02 12:05] LABS: Reflex Troponin-HS? (from REC) Y
[2022-01-02 12:34] LABS: Troponin-I HS 35 pg/mL (3.0-78.0)
--- NOTE | 2022-01-02 13:42 | HP.PCM.HOS_ITS ---
HPI - General General Date of Admission: 01/02/22 Date of Service: 01/02/22 Chief Complaint: Chest pain - 1 day HPI Narrative VIVIANA JOHNSTON, is a 56 M who presents with the above for. Patient has past medical history of CAD status post stents, hypertension, hyperlipidemia, history of CVA, DENY on CPAP who comes in with complaints of chest pain that started this morning. It felt like pressure/burning-had been feeling that was substernal, did not radiate, not associated with diaphoresis or nausea or shortness of breath. Denies orthopnea or PND or leg swelling he took some Pepto-Bismol that seemed to help a little bit. Chest pain came back. He took another dose of Pepto-Bismol that did not help. He then called his because he was concerned to bring him into the hospital. In the ED, his blood pressure 140/83, heart rate was 60, respiratory 19, temperature 97.9 F, oxygen saturation 98% on room air. His WBC count 6.6, h emoglobin 14.7, platelet count was 239. BMP is unremarkable. Initial troponin was 19, repeat troponin was 35. EKG showed no acute ST-T changes, old inferior Q waves. Chest x-ray was unremarkable. Patient's previous 2D echo showed EF of 55%, no regional wall motion abnormality. No valvular lesions. His previous cardiac authorization was in 2014 that showed LAD with 2 previously placed stent that were patent and an area of moderate stenosis. Rest of the coronary arteries had mild diffuse disease. [facility] Medical History Acute sialoadenitis Asthma Atherosclerosis of coronary artery of [place] heart without angina pectoris Central sleep apnea CVA (cerebral vascular accident) (07/2017) Depressive disorder Essential hypertension History of non-ST elevation myocardial infarction (NSTEMI) (07/18/11) Hyperlipidemia Left calcaneal fracture Lupus Morbid obesity with BMI of 45.0-49.9, adult Osteoarthritis Psoriatic arthropathy Thrush, oral Type 2 diabetes mellitus without complication Home Medications aspirin 81 mg chewable tablet 81 mg PO DAILY@0800 08/12/17 [Rx Last Taken Unknown] metformin 1,000 mg tablet 1,000 mg PO BID 12/29/18 [History Last Taken Unknown] amlodipine 10 mg tablet 10 mg PO DAILY blood pressure #90 tabs 08/06/19 [Rx Last Taken Unknown] lisinopril 10 mg tablet 10 mg PO DAILY #90 tabs 08/06/19 [Rx Last Taken Unknown] metoprolol tartrate 25 mg tablet 25 mg PO BID #180 tabs 08/06/19 [Rx Last Taken Unknown] atorvastatin 80 mg tablet 80 mg PO QHS 10/03/20 [History Last Taken Unknown] dulaglutide 1.5 mg/0.5 mL subcutaneous pen injector 1.5 mg subcut QWEEK 10/03/20 [History Last Taken Unknown] escitalopram oxalate 20 mg tablet 20 mg PO DAILY 10/03/20 [History Last Taken Unknown] glipizide 5 mg tablet 5 mg PO DAILY 10/03/20 [History Last Taken Unknown] Allergy/AdvReac Type Severity Reaction Status Date / Time abciximab [From Reopro] Allergy SEVERE Verified 01/02/22 09:25 THROMBOCYTOPENIA Family History (Updated 01/02/22 @ 15:[address] Lashonda Castanon MD) Father Diabetes CAD (coronary artery disease) Parkinsons disease Mother No problems noted. Surgical History History of coronary artery stent placement (07/18/11) History of left heart catheterization (12/10/14) Social History (Updated 01/02/22 @ 15:[address] Lashonda Castanon MD) household members: spouse Smoking Status: Current some day smoker tobacco type: cigarettes how long ago did patient quit smokin years ago alcohol intake: current details: rarely substance use type: does not use ROS ROS Narrative Constitutional: Denies: Anorexia, Chills, Fever, Night Sweats, Weight Change Eyes: Denies: Blurred vision, Cataracts, Conjunctivae Inflammation, Pain, Redness, Vision Change HEENT: Denies: Difficulty Hearing, Difficulty Swallowing, Head Aches, Hearing Changes, Sinus Congestion, Sinus Drainage Cardiovascular: See HPI Respiratory: Denies: Cough, Shortness of breath at rest, Sputum production Gastrointestinal: Denies: Abdominal Pain, Nausea, Vomiting Genitourinary: Denies: Dysuria Musculoskeletal: Denies: Joint Pain, Joint stiffness, Joint swelling, Joint Tenderness Skin: Denies: Rash, Wounds Neurological: Denies: Numbness, Tingling, Focal weakness Vital Signs Vital Signs Vital Signs: 01/02/22 09:23 01/02/22 09:34 01/02/22 09:22 Temperature 97.9 F Temperature Source Temporal Pulse Rate 66 60 Respiratory Rate 18 19 H Respiratory Effort Normal Non-Labored Blood Pressure 135/90 H 140/83 H Blood Pressure Mean 105 102 Pulse Ox 97 98 Oxygen Delivery Method Room Air Room Air 01/02/22 09:45 01/02/22 10:23 01/02/22 12:28 Temperature Temperature Source Pulse Rate 60 54 L Respiratory Rate 19 H 18 Respiratory Effort Blood Pressure 119/81 H 126/88 H Blood Pressure Mean 93 100 Pulse Ox 97 97 Oxygen Delivery Method Room Air Room Air Room Air 01/02/22 13:22 01/02/22 13:24 Temperature 97.9 F Temperature Source Temporal Pulse Rate 53 L 54 L Respiratory Rate 14 17 Respiratory Effort Blood Pressure 124/75 H 124/75 H Blood Pressure Mean 91 91 Pulse Ox 98 98 Oxygen Delivery Method Room Air Room Air Weight Weight: 127.7 kg Body Mass Index (BMI) 48.3 Physical Exam Narrative Physical exam: General: Alert, Oriented x3, Cooperative, morbidly obese HEENT: Atraumatic Oral: Moist Mucosa Neck: Supple Lungs:Diminished to auscultation Cardiovascular: HS I+II, regular, no murmurs Abdomen: Bowel Sounds Present, Soft, Non Tender Extremities: No edema Skin: No rashes, No breakdown Neurological: Grossly intact Psych/Mental Status: Appropriate Results Lab / Micro Data Result Diagrams: 01/02/22 10:00 01/02/22 10:00 Labs: Laboratory Results - last 24 hr 01/02/22 10:00: WBC 6.6, RBC 4.47 L, Hgb 14.7, Hct 42.9, MCV 96.0 H, MCH 32.9 H, MCHC 34.3, RDW Std Deviation 46.5 H, RDW Coeff of Edin 13.2, Plt Count 239, MPV 8.3, Immature Gran % (Auto) 0.300, Neut % (Auto) 70.5 H, Lymph % (Auto) 16.6 L, [place] % (Auto) 5.9, Eos % (Auto) 6.2 H, Baso % (Auto) 0.5, Absolute Neuts (auto) 4.6, Absolute Lymphs (auto) 1.09, Nucleated RBC % 0 01/02/22 10:00: Sodium 139, Potassium 3.9, Chloride 104, Carbon Dioxide 26.0, Anion Gap 9, BUN 14, Creatinine 0.76, Estim Creat Clear Calc 93.04, Est GFR (MDRD) Af Amer 136, Est GFR (MDRD) Non-Af 113, BUN/Creatinine Ratio 18.3, Glucose 129 H, Calcium 9.0, Troponin I High Sens 19 01/02/22 12:00: Troponin I High Sens 35 Radiology Impression Chest X-Ray 01/02/22 10:05 IMPRESSION: Normal x-ray examination of the chest. Electronically Signed: Robi Oliveira MD at 10:54 EDT , Assessment & Plan Assessment/Plan (1) Chest pain: PLAN: Plan 1. Acute chest pain, with multiple comorbidities, history of CAD status post stents Last cardiac cath was 2014 -with patent stents EKG shows no acute ST changes, old inferior Q waves Troponin 19-->35 We will admit to PCU, monitor on telemetry, cardiology consult Stress test on Tuesday Continue aspirin, statin, metoprolol 2. Hypertension, controlled, continue on amlodipine, lisinopril and metoprolol 3. Type II DM, on metformin and glipizide Will hold metformin, continue on glipizide and insulin sliding scale 4. DENY on CPAP 5. Morbid obesity, BMI 46.3, lifestyle modification recommended 6. Nicotine dependence, advised to quit 7. DVT prophylaxis?Lovenox twice daily Charges/Coding Visit Charges OBSV E&M: 80133 Initial observation care L3
--- NOTE | 2022-01-02 15:41 | CON.PCM.CA_ITS ---
Assessment & Plan Assessment/Plan (1) History of coronary artery stent placement: (2) Essential hypertension: (3) Hyperlipidemia: QUALIFIERS: Hyperlipidemia type: unspecified Qualified Code(s): E78.5 - Hyperlipidemia, unspecified (4) CVA (cerebral vascular accident): (5) Central sleep apnea: (6) Chest pain: PLAN: Plan This patient presented to the ER complaining of chest pain and epigastric discomfort Patient took medication for acid reflux however symptoms persist Came to the ER where he been evaluated by EKG and a series of cardiac biomarkers. Patient had CAD with a prior ME in multiple coronary artery stents/x3 from 2008 for left circumflex and LAD. Echocardiogram 2018 normal LV systolic function Patient had history of hypertension, hyperlipidemia, morbid obesity with DENY Cardiovascular exam essentially normal Review of the EKG showed evidence of age-indeterminate inferior ME with Q waves clearly demonstrated in the inferior lead Cardiac care plan recommendations; 1. Patient's series of cardiac biomarkers with high sensitive troponin is negative 2. We will continue current medical treatment patient had CAD with multiple coronary stents and multiple risk factor for CAD morbid obesity and obstructive sleep apnea. Has a history of CVA, hypertension, hyperlipidemia. We will schedule for nuclear stress test/Lexiscan sestamibi and echocardiogram on Tuesday Primary data processing manager Dr. Alexander will resume cardiac care, and discussed further cardiac care plan and recommendation. HPI Consult Data Date of Consult: 01/02/22 HPI Narrative Reason for Consultation: Patient with CAD/chest pain/[facility] HPI Narrative: VIVIANA JOHNSTON, is a 56 M who presents [facility] Medical History Acute sialoadenitis Asthma Atherosclerosis of coronary artery of [place] heart without angina pectoris Central sleep apnea CVA (cerebral vascular accident) (07/2017) Depressive disorder Essential hypertension History of non-ST elevation myocardial infarction (NSTEMI) (07/18/11) Hyperlipidemia Left calcaneal fracture Lupus Morbid obesity with BMI of 45.0-49.9, adult Osteoarthritis Psoriatic arthropathy Thrush, oral Type 2 diabetes mellitus without complication Home Medications aspirin 81 mg chewable tablet 81 mg PO DAILY@0800 08/12/17 [Rx Last Taken Unknown] metformin 1,000 mg tablet 1,000 mg PO BID 12/29/18 [History Last Taken Unknown] amlodipine 10 mg tablet 10 mg PO DAILY blood pressure #90 tabs 08/06/19 [Rx Last Taken Unknown] lisinopril 10 mg tablet 10 mg PO DAILY #90 tabs 08/06/19 [Rx Last Taken Unknown] metoprolol tartrate 25 mg tablet 25 mg PO BID #180 tabs 08/06/19 [Rx Last Taken Unknown] atorvastatin 80 mg tablet 80 mg PO QHS 10/03/20 [History Last Taken Unknown] dulaglutide 1.5 mg/0.5 mL subcutaneous pen injector 1.5 mg subcut QWEEK 10/03/20 [History Last Taken Unknown] escitalopram oxalate 20 mg tablet 20 mg PO DAILY 10/03/20 [History Last Taken Un known] glipizide 5 mg tablet 5 mg PO DAILY 10/03/20 [History Last Taken Unknown] Allergy/AdvReac Type Severity Reaction Status Date / Time abciximab [From Reopro] Allergy SEVERE Verified 01/02/22 09:25 THROMBOCYTOPENIA Family History (Updated 01/02/22 @ 15:[address] Lashonda Castanon MD) Father Diabetes CAD (coronary artery disease) Parkinsons disease Mother No problems noted. Surgical History History of coronary artery stent placement (07/18/11) History of left heart catheterization (12/10/14) Social History (Updated 01/02/22 @ 15:[address] Lashonda Castanon MD) household members: spouse Smoking Status: Current some day smoker tobacco type: cigarettes how long ago did patient quit smokin years ago alcohol intake: current details: rarely substance use type: does not use Physical Exam Narrative Patient seen and evaluated today at bedside at bedside As epigastric and lower chest discomfort monitoring coordinator showed normal sinus Current pulse exam; S1-S2 normal There is no systolic or diastolic murmur Chest examination clear to auscultation bilateral. Risk Stratification Risk Stratification Applicable: Yes Age >/= 65: No >/= 3 CAD Risk Factors (HTN, HLD, DM, family hx of CAD, or current smoker): Yes Aspirin Use in the Past 7 Days: Yes Severe Angina (>/= episodes in 24 hours): No EKG ST Changes >/= 0.5mm: Yes Positive Cardiac Marker: No MEGHAN Risk Stratification Score: 3 MEGHAN % Risk: 13% Risk Objective Data Vital Signs: Vital Signs Temp Pulse Resp BP Pulse Ox O2 Del Method 97.3 F L 57 L 20 H 141/84 H 100 Room Air 01/02/22 14:05 01/02/22 14:20 01/02/22 14:05 01/02/22 14:05 01/02/22 14:05 01/02/22 14:55 Oxygen Delivery Method Room Air Weight: 278 lb 0.046 oz Body Mass Index (BMI) 46.2 Lab / Micro Data Result Diagrams: 01/02/22 10:00 01/02/22 10:00 Labs: Laboratory Results - last 24 hr 01/02/22 10:00: WBC 6.6, RBC 4.47 L, Hgb 14.7, Hct 42.9, MCV 96.0 H, MCH 32.9 H, MCHC 34.3, RDW Std Deviation 46.5 H, RDW Coeff of Edin 13.2, Plt Count 239, MPV 8.3, Immature Gran % (Auto) 0.300, Neut % (Auto) 70.5 H, Lymph % (Auto) 16.6 L, [place] % (Auto) 5.9, Eos % (Auto) 6.2 H, Baso % (Auto) 0.5, Absolute Neuts (auto) 4.6, Absolute Lymphs (auto) 1.09, Nucleated RBC % 0 01/02/22 10:00: Sodium 139, Potassium 3.9, Chloride 104, Carbon Dioxide 26.0, Anion Gap 9, BUN 14, Creatinine 0.76, Estim Creat Clear Calc 93.04, Est GFR (MDRD) Af Amer 136, Est GFR (MDRD) Non-Af 113, BUN/Creatinine Ratio 18.3, Glucose 129 H, Calcium 9.0, Troponin I High Sens 19 01/02/22 12:00: Troponin I High Sens 35 Cardiology Labs/Tests 01/02/22 10:00: WBC 6.6, RBC 4.47 L, Hgb 14.7, Hct 42.9, MCV 96.0 H, MCH 32.9 H, MCHC 34.3, Plt Count 239, MPV 8.3, Immature Gran % (Auto) 0.300, Neut % (Auto) 70.5 H, Lymph % (Auto) 16.6 L, [place] % (Auto) 5.9, Eos % (Auto) 6.2 H, Baso % (Auto) 0.5, Absolute Neuts (auto) 4.6, Nucleated RBC % 0 01/02/22 10:00: Sodium 139, Potassium 3.9, Chloride 104, Carbon Dioxide 26.0, Anion Gap 9, BUN 14, Creatinine 0.76, Est GFR (MDRD) Af Amer 136, Est GFR (MDRD) Non-Af 113, BUN/Creatinine Ratio 18.3, Glucose 129 H, Calcium 9.0 Rhythm: EKG: ECHO: Stress Test: Cardiac Cath: PCI: CT Surgery: Holter monitor: EPS: PPM: CXR: Chest CT Scan: Radiography Diagnostic Testing: Radiology Impression Chest X-Ray 01/02/22 10:05 IMPRESSION: Normal x-ray examination of the chest. Electronically Signed: Robi Oliveira MD at 10:54 EDT ,
[2022-01-02 17:05] LABS: Bedside Glucose 117 mg/dL (74-106)
--- NOTE | 2022-01-02 17:31 | EKG12_ITS ---
Test Reason : AM EKG Blood Pressure : / mmHG Vent. Rate : 065 BPM Atrial Rate : 065 BPM P-R Int : 174 ms QRS Dur : 104 ms QT Int : 428 ms P-R-T Axes : 061 000 063 degrees QTc Int : 445 ms Normal sinus rhythm Possible Inferior infarct , age undetermined Abnormal ECG When compared with ECG of 02-JAN-2022 17:57, MANUAL COMPARISON REQUIRED, DATA IS UNCONFIRMED Confirmed by TOYA LOO, BRANDON ([id number]), legal editor REYES KELLY ([id number]) on 01/04/2022 1:49:08 PM Referred By: Confirmed By:BRANDON PITTMAN MD
[2022-01-02 18:49] LABS: Troponin-I HS 96 pg/mL (3.0-78.0)
[2022-01-02] MEDS: Enoxaparin 40 MG/0.4 ML Syringe SC (21:51)
[2022-01-02] MEDS: Atorvastatin Calcium 80 MG Tablet PO (21:54)
[2022-01-03] VITALS (11 sets, daily range): BP systolic 100–132; BP diastolic 73–90; PULSE 57–76; RESP 16–18; TEMP 36.6–37.2; O2SAT 96–98
[2022-01-03 00:11] LABS: Bedside Glucose 114 mg/dL (74-106)
[2022-01-03 01:13] LABS: Troponin-I HS 93 pg/mL (3.0-78.0)
[2022-01-03 06:07] LABS: Absolute Lymphocyte Count 1.74 X10^3/uL (0.83-4.51); Absolute Neutrophil Count 4.1 X10^3/uL (2.0-7.7); Basophil# 0.04 X10^3/uL; Basophil% 0.6 % (0-1); Eosinophil# 0.38 X10^3/uL; Eosinophils% 5.8 % (0-5); Hemoglobin 14.2 g/dL (13.0-16.5); Lymphocyte # 1.74 X10^3/ul (0.83-4.51); Lymphocyte % 26.4 % (19-41); Mean Corp Hgb Conc 33.8 g/dL (32-36); Mean Corpuscular Volume 97.7 fL (80-94); Mean Platelet Vol. 8.2 fl (6.2-12.0); Monocyte# 0.38 X10^3/uL; Monocyte% 5.8 % (0-10); NRBC Flagged by Analyzer 0 % (0-5); Neutrophil # 4.05 X10^3/uL (2.7-7.7); Neutrophil % 61.2 % (47-70); Platelet Count 221 K/mm3 (150-450); RBC Distribution Width CV 13.4 % (11.6-14.6); RBC Distribution Width SD 47.3 fl (35.1-43.9); White Blood Count 6.6 K/mm3 (4.4-11.0)
[2022-01-03 06:51] LABS: ALB/GLOB Ratio 0.8 RATIO (0.9-2.4); AST(SGOT) 22 U/L (15-37); Alanine Aminotransfer ALT/SGPT 33 U/L (16-61); Albumin, Serum 3.3 g/dL (3.2-5.0); Alkaline Phosphatase 89 U/L (45-117); Anion Gap 7 (5-15); BUN 15 mg/dL (7-18); BUN/Creat Ratio 17.1 RATIO (10-20); Calcium,Total 8.3 mg/dL (8.5-10.1); Chloride 101 mmol/L (98-107); Creatinine, Serum 0.88 mg/dL (0.70-1.30); EST Glomerular Filtration Rate 96 mL/min (>60); Est Glom Filt Rate - Afr Amer 116 mL/min (>60); Estimated Creatinine Clearance 83.48 ml/min; Glucose 110 mg/dL (74-106); Potassium 3.9 mmol/L (3.5-5.1); Protein, Total 7.3 g/dL (6.4-8.2); Sodium Level 135 mmol/L (136-145)
[2022-01-03 07:15] LABS: Bedside Glucose 113 mg/dL (74-106)
[2022-01-03 07:46] LABS: Magnesium 2.1 mg/dL (1.6-2.6)
--- NOTE | 2022-01-03 07:58 | PN.HOSP_ITS ---
Subjective Subjective Follow-up on chest pain: Patient was seen and examined. Denied any more chest pain overnight. No acute events on telemetry. Objective Data Objective Data Vital Signs: Vital Signs Temp Pulse Resp BP Pulse Ox O2 Del Method 98.1 F 62 17 100/76 97 Room Air 01/03/22 03:00 01/03/22 06:29 01/03/22 03:00 01/03/22 03:00 01/03/22 03:00 01/03/22 07:15 Oxygen Delivery Method Room Air Weight: 126.1 kg Body Mass Index (BMI) 46.2 Lab / Micro Data Result Diagrams: 01/03/22 05:18 01/03/22 05:18 Labs: Laboratory Results - last 24 hr 01/02/22 10:00: WBC 6.6, RBC 4.47 L, Hgb 14.7, Hct 42.9, MCV 96.0 H, MCH 32.9 H, MCHC 34.3, RDW Std Deviation 46.5 H, RDW Coeff of Edin 13.2, Plt Count 239, MPV 8.3, Immature Gran % (Auto) 0.300, Neut % (Auto) 70.5 H, Lymph % (Auto) 16.6 L, [place] % (Auto) 5.9, Eos % (Auto) 6.2 H, Baso % (Auto) 0.5, Absolute Neuts (auto) 4.6, Absolute Lymphs (auto) 1.09, Nucleated RBC % 0 01/02/22 10:00: Sodium 139, Potassium 3.9, Chloride 104, Carbon Dioxide 26.0, Anion Gap 9, BUN 14, Creatinine 0.76, Estim Creat Clear Calc 93.04, Est GFR (MDRD) Af Amer 136, Est GFR (MDRD) Non-Af 113, BUN/Creatinine Ratio 18.3, Glucose 129 H, Calcium 9.0, Troponin I High Sens 19 01/02/22 12:00: Troponin I High Sens 35 01/02/22 16:37: POC Glucose 117 H 01/02/22 18:05: Troponin I High Sens 96 H 01/02/22 21:34: POC Glucose 114 H 01/03/22 00:45: Troponin I High Sens 93 H 01/03/22 05:18: WBC 6.6, RBC 4.30 L, Hgb 14.2, Hct 42.0, MCV 97.7 H, MCH 33.0 H, MCHC 33.8, RDW Std Deviation 47.3 H, RDW Coeff of Edin 13.4, Plt Count 221, MPV 8.2, Immature Gran % (Auto) 0.200, Neut % (Auto) 61.2, Lymph % (Auto) 26.4, [place] % (Auto) 5.8, Eos % (Auto) 5.8 H, Baso % (Auto) 0.6, Absolute Neuts (auto) 4.1, Absolute Lymphs (auto) 1.74, Nucleated RBC % 0 01/03/22 05:18: Sodium 135 L, Potassium 3.9, Chloride 101, Carbon Dioxide 27.0, Anion Gap 7, BUN 15, Creatinine 0.88, Estim Creat Clear Calc 83.48, Est GFR (MDRD) Af Amer 116, Est GFR (MDRD) Non-Af 96, BUN/Creatinine Ratio 17.1, Glucose 110 H, Calcium 8.3 L, Total Bilirubin 0.60, AST 22, ALT 33, Alkaline Phosphatase 89, Total Protein 7.3, Albumin 3.3, Globulin 4.0, Albumin/Globulin Ratio 0.8 L 01/03/22 05:18: Magnesium 2.1 01/03/22 06:56: POC Glucose 113 H Radiography Diagnostic Testing: Radiology Impression Chest X-Ray 01/02/22 10:05 IMPRESSION: Normal x-ray examination of the chest. Electronically Signed: Robi Oliveira MD at 10:54 EDT , Physical Exam Narrative Physical exam: General: Alert, Oriented x3, Cooperative, morbidly obese HEENT: Atraumatic Oral: Moist Mucosa Neck: Supple Lungs:Diminished to auscultation Cardiovascular: HS I+II, regular, no murmurs Abdomen: Bowel Sounds Present, Soft, Non Tender Extremities: No edema Skin: No rashes, No breakdown Neurological: Grossly intact Psych/Mental Status: Appropriate Assessment & Plan Assessment/Plan (1) Chest pain: PLAN: Plan 1. Acute chest pain, with multiple comorbidities, history of CAD status post stents Last cardiac cath was 2015 -with patent stents EKG shows no acute ST changes, old inferior Q waves Stress test planned for Tuesday Continue aspirin, statin, metoprolol 2. Hypertension, controlled, continue on amlodipine, lisinopril and metoprolol 3. Type II DM, on metformin and glipizide Continue to hold metformin, Continue on glipizide and insulin sliding scale 4. DENY on CPAP 5. Morbid obesity, BMI 46.3, lifestyle modification recommended 6. Nicotine dependence, advised to quit 7. DVT prophylaxis?Lovenox twice daily Charges/Coding Visit Charges OBSV E&M: 12474 Subsequent observation care L2
[2022-01-03] MEDS: Escitalopram Oxalate 20 MG Tablet PO (08:47)
[2022-01-03] MEDS: glipiZIDE 5 MG Tablet PO (08:47)
[2022-01-03] MEDS: Enoxaparin 40 MG/0.4 ML Syringe SC ×2 (08:47→21:47)
[2022-01-03] MEDS: Aspirin 81 MG TAB.CHEW PO (08:47)
[2022-01-03 11:40] LABS: Bedside Glucose 155 mg/dL (74-106)
--- NOTE | 2022-01-03 12:05 | PCM.PN.CARD ---
Subjective Subjective Patient seen and evaluated at bedside today comfortable No symptoms of chest pain reported Objective Data Vital Signs: Vital Signs Temp Pulse Resp BP Pulse Ox O2 Del Method 98.1 F 71 18 109/76 96 Room Air 01/03/22 08:42 01/03/22 08:42 01/03/22 08:42 01/03/22 08:42 01/03/22 08:42 01/03/22 08:51 Oxygen Delivery Method Room Air Weight: 278 lb 0.046 oz Body Mass Index (BMI) 46.2 Lab / Micro Data Result Diagrams: 01/03/22 05:18 01/03/22 05:18 Labs: Laboratory Results - last 24 hr 01/02/22 12:00: Troponin I High Sens 35 01/02/22 16:37: POC Glucose 117 H 01/02/22 18:05: Troponin I High Sens 96 H 01/02/22 21:34: POC Glucose 114 H 01/03/22 00:45: Troponin I High Sens 93 H 01/03/22 05:18: WBC 6.6, RBC 4.30 L, Hgb 14.2, Hct 42.0, MCV 97.7 H, MCH 33.0 H, MCHC 33.8, RDW Std Deviation 47.3 H, RDW Coeff of Edin 13.4, Plt Count 221, MPV 8.2, Immature Gran % (Auto) 0.200, Neut % (Auto) 61.2, Lymph % (Auto) 26.4, [place] % (Auto) 5.8, Eos % (Auto) 5.8 H, Baso % (Auto) 0.6, Absolute Neuts (auto) 4.1, Absolute Lymphs (auto) 1.74, Nucleated RBC % 0 01/03/22 05:18: Sodium 135 L, Potassium 3.9, Chloride 101, Carbon Dioxide 27.0, Anion Gap 7, BUN 15, Creatinine 0.88, Estim Creat Clear Calc 83.48, Est GFR (MDRD) Af Amer 116, Est GFR (MDRD) Non-Af 96, BUN/Creatinine Ratio 17.1, Glucose 110 H, Calcium 8.3 L, Total Bilirubin 0.60, AST 22, ALT 33, Alkaline Phosphatase 89, Total Protein 7.3, Albumin 3.3, Globulin 4.0, Albumin/Globulin Ratio 0.8 L 01/03/22 05:18: Magnesium 2.1 01/03/22 06:56: POC Glucose 113 H 01/03/22 11:02: POC Glucose 155 H Cardiology Labs/Tests 01/03/22 05:18: WBC 6.6, RBC 4.30 L, Hgb 14.2, Hct 42.0, MCV 97.7 H, MCH 33.0 H, MCHC 33.8, Plt Count 221, MPV 8.2, Immature Gran % (Auto) 0.200, Neut % (Auto) 61.2, Lymph % (Auto) 26.4, [place] % (Auto) 5.8, Eos % (Auto) 5.8 H, Baso % (Auto) 0.6, Absolute Neuts (auto) 4.1, Nucleated RBC % 0 01/03/22 05:18: Sodium 135 L, Potassium 3.9, Chloride 101, Carbon Dioxide 27.0, Anion Gap 7, BUN 15, Creatinine 0.88, Est GFR (MDRD) Af Amer 116, Est GFR (MDRD) Non-Af 96, BUN/Creatinine Ratio 17.1, Glucose 110 H, Calcium 8.3 L, Total Bilirubin 0.60 01/03/22 05:18: Magnesium 2.1 Rhythm: EKG: ECHO: Stress Test: Cardiac Cath: PCI: CT Surgery: Holter monitor: EPS: PPM: CXR: Chest CT Scan: Physical Exam Narrative Review of patient monitor showed underlying normal sinus Cardiovascular exam S1-S2 is regular Chest exam is clear to auscultation bilateral. Examination lower extremity no clubbing no cyanosis no lower extremity edema. Assessment & Plan Assessment/Plan (1) Essential hypertension: (2) History of coronary artery stent placement: (3) CVA (cerebral vascular accident): (4) Central sleep apnea: (5) History of non-ST elevation myocardial infarction (NSTEMI): (6) Chest pain: PLAN: 56year-old patient with extensive cardiac history Patient has multiple prior coronary artery stents In July 2011 History of hyperlipidemia Hypertension CVA diagnosed in July 2017 patient had morbid obesity with sleep apnea On this admission his symptoms is chest pain typical of angina EKG showed no significant ST-T change in the cardiac markers were within normal he had evidence of old inferior NH with Q waves noted in the inferior lead. Patient had history of diabetes mellitus hypertension, will continue medical therapy. Cardiac care plan; 1. I reviewed all his current treatment and his current evaluation here in the hospital his cardiac biomarker was high sensitive troponin negative I scheduled the patient for Lexiscan sestamibi and echocardiogram 2. His primary medical billing supervisor Dr. Alexander will resume cardiac care.
[2022-01-03 17:20] LABS: Bedside Glucose 97 mg/dL (74-106)
[2022-01-03] MEDS: Atorvastatin Calcium 80 MG Tablet PO (21:47)
[2022-01-03] MEDS: Metoprolol Tartrate 25 MG Tablet PO (21:47)
[2022-01-03 22:25] LABS: Bedside Glucose 145 mg/dL (74-106)
[2022-01-04 03:02] VITALS: PULSE 57
[2022-01-04 04:00] VITALS: BP 118/70; PULSE 60; RESP 14; TEMP 37.1; O2SAT 97
--- NOTE | 2022-01-04 05:00 | EKG12_ITS ---
Test Reason : CP ADMIT Blood Pressure : / mmHG Vent. Rate : 070 BPM Atrial Rate : 070 BPM P-R Int : 182 ms QRS Dur : 096 ms QT Int : 400 ms P-R-T Axes : 060 015 064 degrees QTc Int : 432 ms Sinus rhythm with frequent Premature ventricular complexes Low voltage QRS Possible Inferior infarct , age undetermined Abnormal ECG Confirmed by TOYA LOO, BRANDON ([id number]), news assignment editor REYES KELLY ([id number]) on 01/04/2022 1:53:37 PM Referred By: Confirmed By:BRANDON PITTMAN MD
[2022-01-04 06:17] LABS: Absolute Lymphocyte Count 1.65 X10^3/uL (0.83-4.51); Absolute Neutrophil Count 3.1 X10^3/uL (2.0-7.7); Basophil# 0.04 X10^3/uL; Basophil% 0.7 % (0-1); Eosinophil# 0.36 X10^3/uL; Eosinophils% 6.5 % (0-5); Hematocrit 42.3 % (40-54); Hemoglobin 14.5 g/dL (13.0-16.5); Lymphocyte # 1.65 X10^3/ul (0.83-4.51); Mean Corp Hgb Conc 34.3 g/dL (32-36); Mean Corpuscular Hgb 32.8 pg (27.0-32.0); Mean Corpuscular Volume 95.7 fL (80-94); Mean Platelet Vol. 8.1 fl (6.2-12.0); Monocyte# 0.37 X10^3/uL; Monocyte% 6.7 % (0-10); NRBC Flagged by Analyzer 0 % (0-5); Neutrophil # 3.07 X10^3/uL (2.7-7.7); Neutrophil % 55.9 % (47-70); Platelet Count 224 K/mm3 (150-450); RBC Distribution Width SD 45.5 fl (35.1-43.9); Red Blood Count 4.42 M/mm3 (4.6-6.2); White Blood Count 5.5 K/mm3 (4.4-11.0)
[2022-01-04 06:29] VITALS: BP 111/87; PULSE 63; RESP 16; TEMP 36.6; O2SAT 98
[2022-01-04] MEDS: Lisinopril 10 MG Tablet PO (06:32)
[2022-01-04] MEDS: Aspirin 81 MG TAB.CHEW PO (06:32)
[2022-01-04 06:55] LABS: ALB/GLOB Ratio 0.8 RATIO (0.9-2.4); AST(SGOT) 21 U/L (15-37); Alanine Aminotransfer ALT/SGPT 32 U/L (16-61); Albumin, Serum 3.4 g/dL (3.2-5.0); Alkaline Phosphatase 90 U/L (45-117); Anion Gap 7 (5-15); BUN 14 mg/dL (7-18); BUN/Creat Ratio 17.1 RATIO (10-20); Calcium,Total 8.5 mg/dL (8.5-10.1); Chloride 102 mmol/L (98-107); Creatinine, Serum 0.82 mg/dL (0.70-1.30); EST Glomerular Filtration Rate 104 mL/min (>60); Est Glom Filt Rate - Afr Amer 126 mL/min (>60); Estimated Creatinine Clearance 89.58 ml/min; Globulin 4.2 g/dL (2.2-4.2); Glucose 123 mg/dL (74-106); Potassium 4.1 mmol/L (3.5-5.1); Protein, Total 7.6 g/dL (6.4-8.2); Sodium Level 137 mmol/L (136-145)
[2022-01-04 06:59] VITALS: PULSE 61
[2022-01-04 07:20] LABS: Bedside Glucose 132 mg/dL (74-106)
[2022-01-04 08:00] VITALS: BP 107/82; PULSE 59; RESP 16; TEMP 36.8; O2SAT 96
[2022-01-04 10:51] VITALS: BP 110/64; PULSE 64; RESP 18; TEMP 36.9; O2SAT 97
[2022-01-04] MEDS: glipiZIDE 5 MG Tablet PO (10:54)
--- NOTE | 2022-01-04 10:54 | CON.PCM.CA_ITS ---
Assessment & Plan Assessment/Plan (1) Chest pain: PLAN: He does present with a history of chest discomfort which has some atypical features. He did undergo a pharmacologic myocardial perfusion stress test which demonstrated evidence of apical infarct with mild bon-infarct ischemia. I would recommend at this time that we optimize his medical therapy and discharge him for outpatient follow-up. If he continues to have chest discomfor t and I will have a low threshold to reevaluate his coronary anatomy. (2) History of coronary artery stent placement: PLAN: He has had previous coronary artery stenting as noted above. His recent stress test demonstrated mild bon-infarct ischemia. We will optimize his med ical therapy for now. (3) Essential hypertension: PLAN: His blood pressure appears to be under good control at this time and I would not suggest that we make any major changes. HPI Consult Data Date of Consult: 01/04/22 HPI Narrative HPI Narrative: VIVIANA JOHNSTON, is a 56 M who presents with chest comfort which occurred while he was sleeping. He presented to the emergency room and because of his risk factors he was admitted. Initial troponin enzymes were noted to be normal. He has a history of known coronary artery disease, hypertension, hyperlipidemia, status post previous cardiac catheterization in 2010 in 2011.? His last catheterization 2014 demonstrated a pre-existing stent in the proximal to mid left anterior descending artery, 80% stenosis of the proximal to mid second diagonal vessel and a 60% stenosis of the first diagonal vessel.? He underwent fractional flow reserve of the mid to distal left anterior descending artery which was 0.77 thought to be hemodynamically significant for which he underwent angioplasty and stenting.? Promus 2.5 x 28 mm was placed in the mid to distal left anterior descending artery and postdilated to 2.8 mm.? The right coronary artery had 30% diffuse stenotic lesion was mild to moderately calcified in the left circumflex artery had a 30% stenotic lesion.? He underwent an echocardiogram with demonstrated ejection fraction of 65% with no wall motion abnormalities present.? He has had no dizziness or diaphoresis near syncope or syncope his blood pressure has been under much better control.? His physical exam demonstrates clear lung anderson regular rate and rhythm and no pedal edema.? [facility] Medical History Acute sialoadenitis Asthma Atherosclerosis of coronary artery of [place] heart without angina pectoris Central sleep apnea CVA (cerebral vascular accident) (07/2017) Depressive disorder Essential hypertension History of non-ST elevation myocardial infarction (NSTEMI) (07/18/11) Hyperlipidemia Left calcaneal fracture Lupus Morbid obesity with BMI of 45.0-49.9, adult Osteoarthritis Psoriatic arthropathy Thrush, oral Type 2 diabetes mellitus without complication Home Medications aspirin 81 mg chewable tablet 81 mg PO DAILY@0800 08/12/17 [Rx Last Taken Unknown] metformin 1,000 mg tablet 1,000 mg PO BID 12/29/18 [History Last Taken Unknown] amlodipine 10 mg tablet 10 mg PO DAILY blood pressure #90 tabs 08/06/19 [Rx Last Taken Unknown] lisinopril 10 mg tablet 10 mg PO DAILY #90 tabs 08/06/19 [Rx Last Taken Unknown] metoprolol tartrate 25 mg tablet 25 mg PO BID #180 tabs 08/06/19 [Rx Last Taken Unknown] atorvastatin 80 mg tablet 80 mg PO QHS 10/03/20 [History Last Taken Unknown] dulaglutide 1.5 mg/0.5 mL subcutaneous pen injector 1.5 mg subcut QWEEK 10/03/20 [History Last Taken Unknown] escitalopram oxalate 20 mg tablet 20 mg PO DAILY 10/03/20 [History Last Taken Unknown] glipizide 5 mg tablet 5 mg PO DAILY 10/03/20 [History Last Taken Unknown] Allergy/AdvReac Type Severity Reaction Status Date / Time abciximab [From Reopro] Allergy SEVERE Verified 01/02/22 09:25 THROMBOCYTOPENIA Family History Father Diabetes CAD (coronary artery disease) Parkinsons disease Mother No problems noted. Surgical History History of coronary artery stent placement (07/18/11) History of left heart catheterization (12/10/14) Social History household members: spouse Smoking Status: Current some day smoker tobacco type: cigarettes how long ago did patient quit smokin years ago alcohol intake: current details: rarely substance use type: does not use ROS Constitutional Constitutional: Denies fever(s) or weight loss Eyes Eyes: Reports systems reviewed and no addt'l complaints, except as documented ENT HEENT: Reports systems reviewed and no addt'l complaints, except as documented Cardiovascular Cardiovascular: Denies chest pain at rest, chest pain with activity, dyspnea at rest, dyspnea on exertion, edema, palpitations or paroxysmal nocturnal dyspnea Respiratory/Chest Respiratory/Chest: Denies dyspnea on exertion, productive cough, shortness of breath at rest or shortness of breath with exertion Gastrointestinal Gastrointestinal: Denies change in bowel habits, nausea, vomiting or weight ch anges Genitourinary Genitourinary: Denies difficulty urinating Musculoskeletal Musculoskeletal: Denies joint stiffness or muscle weakness Integumentary Integumentary: Denies lesions Neurologic Neurologic: Denies dizziness or syncope Psychiatric Psychiatric: Denies anxiety Endocrine Endocrinology: Denies excessive sweating or fatigue Hematologic/Lymphatic Hematologic/Lymphatic: Denies anemia Allergic/Immunologic Allergic/Immunologic: Denies seasonal rhinorrhea Physical Exam Const alert, oriented x3 and no apparent distress General Appearance: cooperative HEENT hearing grossly normal bilaterally Head and Scalp: atraumatic Eyes EOMs intact bilaterally Neck General: normal visual inspection Chest inspection of chest normal and palpation of chest normal Resp normal respiratory effort Auscultation: clear to auscultation bilaterally Cardio regular rate, regular rhythm, S1 normal heart sound and S2 normal heart sound Jugular Venous Distention: JVD GI normal to inspection, nondistended, normoactive bowel sounds Extremity normal capillary refill and no pedal edema Peripheral Pulses: Yes pulses 2+ throughout and femoral pulses present Skin no rashes or lesions noted Neuro oriented x3 and CN's II-XII intact bilaterally Psych Appearance: grossly normal and appropriate Risk Stratification Risk Stratification Applicable: No Objective Data Vital Signs: Vital Signs Temp Pulse Resp BP Pulse Ox O2 Del Method 98.5 F 64 18 110/64 97 Room Air 01/04/22 10:51 01/04/22 10:51 01/04/22 10:51 01/04/22 10:51 01/04/22 10:51 01/04/22 10:51 Oxygen Delivery Method Room Air Weight: 278 lb 0.046 oz Body Mass Index (BMI) 46.2 Lab / Micro Data Result Diagrams: 01/04/22 05:54 01/04/22 05:54 Labs: Laboratory Results - last 24 hr 01/03/22 11:02: POC Glucose 155 H 01/03/22 16:33: POC Glucose 97 01/03/22 21:44: POC Glucose 145 H 01/04/22 05:54: WBC 5.5, RBC 4.42 L, Hgb 14.5, Hct 42.3, MCV 95.7 H, MCH 32.8 H, MCHC 34.3, RDW Std Deviation 45.5 H, RDW Coeff of Edin 13.0, Plt Count 224, MPV 8.1, Immature Gran % (Auto) 0.200, Neut % (Auto) 55.9, Lymph % (Auto) 30.0, [place] % (Auto) 6.7, Eos % (Auto) 6.5 H, Baso % (Auto) 0.7, Absolute Neuts (auto) 3.1, Absolute Lymphs (auto) 1.65, Nucleated RBC % 0 01/04/22 05:54: Sodium 137, Potassium 4.1, Chloride 102, Carbon Dioxide 28.0, Anion Gap 7, BUN 14, Creatinine 0.82, Estim Creat Clear Calc 89.58, Est GFR (MDRD) Af Amer 126, Est GFR (MDRD) Non-Af 104, BUN/Creatinine Ratio 17.1, G lucose 123 H, Calcium 8.5, Total Bilirubin 0.50, AST 21, ALT 32, Alkaline Phosphatase 90, Total Protein 7.6, Albumin 3.4, Globulin 4.2, Albumin/Globulin Ratio 0.8 L 01/04/22 06:30: POC Glucose 132 H Cardiology Labs/Tests 01/04/22 05:54: WBC 5.5, RBC 4.42 L, Hgb 14.5, Hct 42.3, MCV 95.7 H, MCH 32.8 H, MCHC 34.3, Plt Count 224, MPV 8.1, Immature Gran % (Auto) 0.200, Neut % (Auto) 55.9, Lymph % (Auto) 30.0, [place] % (Auto) 6.7, Eos % (Auto) 6.5 H, Baso % (Auto) 0.7, Absolute Neuts (auto) 3.1, Nucleated RBC % 0 01/04/22 05:54: Sodium 137, Potassium 4.1, Chloride 102, Carbon Dioxide 28.0, Anion Gap 7, BUN 14, Creatinine 0.82, Est GFR (MDRD) Af Amer 126, Est GFR (MDRD) Non-Af 104, BUN/Creatinine Ratio 17.1, Glucose 123 H, Calcium 8.5, Total Bilirubin 0.50 Rhythm: EKG: ECHO: Stress Test: Cardiac Cath: PCI: CT Surgery: Holter monitor: EPS: PPM: CXR: Chest CT Scan:
--- NOTE | 2022-01-04 10:54 | CASEMGMT ---
This RN GIAN to room with JHA form, explanation done-pt voices understanding, and signs JHA form. Original to chart and copy to pt. Pt voices no further questions/concerns/needs. SStaten KATHIE CM
[2022-01-04] MEDS: Escitalopram Oxalate 20 MG Tablet PO (10:55)
--- NOTE | 2022-01-04 11:00 | STRESSREP ---
Stress Test Report Pharmacologic myocardial perfusion stress test. 56-year-old man with a history of coronary artery disease and chest pain. Stress protocol: Resting EKG demonstrates normal sinus rhythm with a rate of 63 bpm normal intervals are noted resting blood pressure is 110/80 mmHg. 0.4 mg of regadenoson was infused per usual protocol followed by Intravenous saline flush injection continuous EKG monitoring was performed. The maximum heart rate attained was 107 bpm which was 64% of maximum predicted heart rate the maximum workload was 1 metabolic equivalent. At rest there were no ST or T wave changes noted to suggest abnormal flow reserve and a peak infusion nonspecific ST changes were noted with did not meet the criteria for ischemia. No clinical angina was noted. The final blood pressure was 120/74 mmHg. Myocardial perfusion protocol. 14.8 mCi of technetium 99m sestamibi was injected at rest. 0.4 mg of regadenoson was infused per usual protocol. At peak infusion 45.0 mCi of technetium 99m sestamibi was injected stress images were obtained stress and rest images were reconstructed and compared in the short axis vertical long and horizontal long axis. Gated images were also obtained. Perfusion SPECT analysis: Review of the stress images demonstrate a normal cardiac silhouette size. The septum anterior wall lateral wall and inferior wall appear to be well perfused. The distal anterior wall and apex on the stress images demonstrate a perfusion defect. The resting images demonstrate a similar defect with mild improvement around the edges suggesting mild bon-infarct ischemia in the apical distribution. Gated SPECT analysis: The gated ejection fraction is 48%. Conclusion: Mildly abnormal pharmacologic myocardial perfusion stress test with evidence of previous apical infarct with mild bon-infarct ischemia. Mild left ventricular systolic dysfunction.
--- NOTE | 2022-01-04 11:12 | PCM.DC.SUM ---
Providers Date of Admission: 01/02/22 Date of Discharge: 01/04/22 Primary Care Physician: Dr. Thais Fox MD Consultations 01/02/22 14:04 Consult: Cardiology Routine Consulting Provider: Nelia Lr Reason for Consult: chest pain EMERGENT Consult: No MD Notified: Yes Date Notified: 01/02/22 Time Notified: 15:29 Method of Notification: Verbal Reason For Visit: CHEST PAIN Diagnosis Discharge Diagnosis (1) Chest pain: Status: Acute Code(s): R07.9 - Chest pain, unspecified (2) History of coronary artery stent placement: Status: Resolved Code(s): Z95.5 - Presence of coronary angioplasty implant and graft (3) Essential hypertension: Status: Chronic Code(s): I10 - Essential (primary) hypertension Medications at Discharge Home Medications aspirin 81 mg chewable tablet 81 mg PO DAILY@0800 08/12/17 metformin 1,000 mg tablet 1,000 mg PO BID 12/29/18 amlodipine 10 mg tablet 10 mg PO DAILY blood pressure #90 tabs 08/06/19 lisinopril 10 mg tablet 10 mg PO DAILY #90 tabs 08/06/19 metoprolol tartrate 25 mg tablet 25 mg PO BID #180 tabs 08/06/19 atorvastatin 80 mg tablet 80 mg PO QHS 10/03/20 dulaglutide 1.5 mg/0.5 mL subcutaneous pen injector 1.5 mg subcut QWEEK 10/03/20 escitalopram oxalate 20 mg tablet 20 mg PO DAILY 10/03/20 glipizide 5 mg tablet 5 mg PO DAILY 10/03/20 isosorbide mononitrate 30 mg tablet,extended release 24 hr 30 mg PO DAILY #60 tabs 01/04/22 Hospital Course Procedures Nuclear stress test Summary of Care Provided Minutes Spent on Discharge: 35 Hospital Course: Patient is a 56-year-old gentleman with past medical history signal for coronary artery disease with previous stent placement, essential hypertension diabetes mellitus type 2 obstructive sleep apnea morbid obesity with BMI of 46 admitted with chest pain Chest pain patient was placed on a monitored bed [place] was ruled out with serial cardiac enzymes consult placed to cardiology patient seen by Dr. Alexander recommended for patient to undergo a nuclear stress test. Patient nuclear stress test did show previous apical infarct with mild bon-infarct ischemia. Mild left ventricular systolic dysfunction.. Dr. Alexander recommended optimization of medical therapy. Patient will follow-up with cardiology as outpatient Physical Exam Narrative GENERAL: cooperative HEENT: Atraumatic; EYES; Anicteric, Normal Conjunctiva NECK; supple, normal thyroid, RESPIRATORY: Diminished to auscultation CARDIOVASCULAR: Regular S1 S2, GI: soft, normoactive bowel sounds, : No Renal angle tenderness; EXTREMITIES: No edema, no clubbing, MUSCULOSKELETAL: no muscle wasting NEURO: Awake; no lateralizing signs. SKIN: No Rash PSYCH; Flat affect Weight / BMI Weight Weight: 126.1 kg Body Mass Index (BMI) 46.2 ABG / Lab / Microbiology Data Result Diagrams: 01/04/22 05:54 01/04/22 05:54 Laboratory: Laboratory Results - last 24 hr 01/03/22 11:02: POC Glucose 155 H 01/03/22 16:33: POC Glucose 97 01/03/22 21:44: POC Glucose 145 H 01/04/22 05:54: WBC 5.5, RBC 4.42 L, Hgb 14.5, Hct 42.3, MCV 95.7 H, MCH 32.8 H, MCHC 34.3, RDW Std Deviation 45.5 H, RDW Coeff of Edin 13.0, Plt Count 224, MPV 8.1, Immature Gran % (Auto) 0.200, Neut % (Auto) 55.9, Lymph % (Auto) 30.0, [place] % (Auto) 6.7, Eos % (Auto) 6.5 H, Baso % (Auto) 0.7, Absolute Neuts (auto) 3.1, Absolute Lymphs (auto) 1.65, Nucleated RBC % 0 01/04/22 05:54: Sodium 137, Potassium 4.1, Chloride 102, Carbon Dioxide 28.0, Anion Gap 7, BUN 14, Creatinine 0.82, Estim Creat Clear Calc 89.58, Est GFR (MDRD) Af Amer 126, Est GFR (MDRD) Non-Af 104, BUN/Creatinine Ratio 17.1, Glucose 123 H, Calcium 8.5, Total Bilirubin 0.50, AST 21, ALT 32, Alkaline Phosphatase 90, Total Protein 7.6, Albumin 3.4, Globulin 4.2, Albumin/Globulin Ratio 0.8 L 01/04/22 06:30: POC Glucose 132 H Meaningful Use Info Meaningful Use Diagnoses (Choose all that apply): None applicable Discharge Plan Admission Admit Date/Time: 01/02/22 13:18 Attending Provider: Patrick Muniz Primary Care Provider: Thais Fox Consulting Providers: Nelia Lr ; Lashonda Castanon Discharge Orders/Prescriptions Prescriptions: New isosorbide mononitrate 30 mg Tablet Extended Release 24 Hr 30 mg PO DAILY Qty: 60 0RF Continued metformin 1,000 mg tablet 1,000 mg PO BID metoprolol tartrate 25 mg tablet 25 mg PO BID Qty: 180 3RF lisinopril 10 mg tablet 10 mg PO DAILY Qty: 90 3RF amlodipine 10 mg tablet 10 mg PO DAILY Qty: 90 3RF dulaglutide 1.5 mg/0.5 mL pen injector 1.5 mg subcut QWEEK Label Comments: INJECT 1.5 MG SUBCUTANEOUSLY ONCE A WEEK glipizide 5 mg tablet 5 mg PO DAILY atorvastatin 80 mg tablet 80 mg PO QHS escitalopram oxalate 20 mg tablet 20 mg PO DAILY aspirin 81 MG tablet,chewable 81 mg PO DAILY@0800 0RF Referrals / Follow Up: Thais Fox MD [Primary Care Provider] - Within 1 Week Robert Alexander MD [Med Staff - Active Staff] - Within 2 Weeks Disposition Disposition (needs filled in before D/C Order can be placed): Home, Self Care Charges/Coding Visit Charges OBSV E&M: 61406 Observation care discharge
--- NOTE | 2022-01-04 11:27 | CASEMGMT ---
Per admission questions patient does not have a Healthcare Power of Service Operations Manager or a Healthcare Living Will and is not interested in documents. Erica Argueta DUSTER TENDER ROOF [employer]ER
[2022-01-04 11:40] LABS: Bedside Glucose 194 mg/dL (74-106)
--- NOTE | 2022-01-04 11:53 | CHAPLAIN ---
Type of Pastoral Visit _x__ Initial Visit ___ Follow-up Visit ___ On-call Visit ___ General Patient Visit ___ Spiritual Assessment ___ Family Conference ___ Bereavement ___ Rapid Response ___ Code Blue ___ Other (describe below) Pastoral Care Referral From _x__ Patient ___ Family ___ Nurse ___ Physician ___ Graphic Arts Instructor ___ Alliance Director ___ Other (describe below) Sacrament/Intervention _x__ Active listening ___ Anointing ___ Tenriism ___ Bereavement ___ Communion ___ Halina exploration ___ ___ Life review ___ Prayer ___ Reconciliation ___ Sacrament of Sick ___ Supportive presence ___ Wedding ___ Other (describe below) Pastoral Comments patient gives report on his health and reason for admission; offer of support given; pt speaks of good results from tests and of being discharged; pt states no other needs at this time
--- NOTE | 2022-01-04 12:12 | PHA.DC.MC ---
Pharmacy Service has performed discharge medication reconciliation and counseling for this patient. The patient was counseled on the following discharge medications and changes in medications for homegoing were reviewed. 1. IMDUR The Reason for Use, instructions for use, and potential side effects were reviewed for all new medications. The patient's questions regarding all of their medications were answered. The patient was able to verbally demonstrate an understanding of their discharge medications. Home Medications aspirin 81 mg chewable tablet 81 mg PO DAILY@0800 08/12/17 metformin 1,000 mg tablet 1,000 mg PO BID diabetes 12/29/18 amlodipine 10 mg tablet 10 mg PO DAILY blood pressure #90 tabs 08/06/19 lisinopril 10 mg tablet 10 mg PO DAILY #90 tabs 08/06/19 metoprolol tartrate 25 mg tablet 25 mg PO BID #180 tabs 08/06/19 atorvastatin 80 mg tablet 80 mg PO QHS cholesterol 10/03/20 dulaglutide 1.5 mg/0.5 mL subcutaneous pen injector 1.5 mg subcut QWEEK diabetes 10/03/20 escitalopram oxalate 20 mg tablet 20 mg PO DAILY mental health 10/03/20 glipizide 5 mg tablet 5 mg PO DAILY diabetes 10/03/20 isosorbide mononitrate 30 mg tablet,extended release 24 hr 30 mg PO DAILY #60 tabs 01/04/22
== END 2022-01-04 11:15 | disposition home or self-care (01) ==
LOC: ED 10:20 → PCU 13:34
PROVIDERS: Hospitalist; Admitting Provider Internal Medicine; Emergency Provider Student in an Organized Health Care Education/Training Program; PCP Internal Medicine; Visit Provider Internal Medicine
DX: R07.89 Other chest pain (principal); L40.50 Arthropathic psoriasis, unspecified; M32.9 Systemic lupus erythematosus, unspecified; E66.01 Morbid (severe) obesity due to excess calories; Z68.42 Body mass index [BMI] 45.0-49.9, adult; E11.9 Type 2 diabetes mellitus without complications; E78.5 Hyperlipidemia, unspecified; Z79.82 Long term (current) use of aspirin; I25.10 Atherosclerotic heart disease of native coronary artery without angina pectoris; F17.210 Nicotine dependence, cigarettes, uncomplicated; G47.31 Primary central sleep apnea; I10 Essential (primary) hypertension; J45.909 Unspecified asthma, uncomplicated; M19.90 Unspecified osteoarthritis, unspecified site; Z79.84 Long term (current) use of oral hypoglycemic drugs; Z79.899 Other long term (current) drug therapy; I25.2 Old myocardial infarction; F32.A Depression, unspecified
CPT/HCPCS: 36415; 71045; 78452; 80048; 80053; 82962; 83735; 84484; 85025; 93005; 93017; 96372; 99218; 99285; A9500; A4216; G0378; J2785

== ENCOUNTER 2022-01-25 08:50 | Day surgery (SDC) | payer MEDICARE, SELFPAY ==
[2022-01-22 09:17] VITALS: BMI 47.0
--- NOTE | 2022-01-25 10:28 | CASEMGMT ---
According to the [facility] website, the following are in-network tertiary facilities: [facility], [facility], [facility], [facility], [facility], [facility], [employer], and . Ad VÁZQUEZ CM
--- NOTE | 2022-01-25 10:36 | CL.D_ITS ---
Patient Name: VIVIANA JOHNSTON Study Date: 01/25/2022 Performing: Robert Alexander MD Ht: 65 inches 165.1 cm : 1965 Wt: 283.01 lbs 128.37 kg Age: 56 Gender: male BSA: 2.29 PROCEDURE(S) PERFORMED [id number])LHC/COR/LV CLINICAL PROFILE AND INDICATIONS Indications: Stable Known CAD Heart Failure: None Stress/Imaging Date: 01/04/22Stress Test with SPECT MPI: Positive Low Risk CAD Presentations: Stable angina. CONCLUSIONS Severe coronary artery disease with a totally occluded previously stented left anterior descending artery, diffusely diseased left circumflex artery and a totally occluded right coronary artery with left to right and right to left collaterals Mild to moderate left ventricular systolic dysfunction with hypokinetic anterior wall and hypokinetic mid inferior wall RECOMMENDATIONS Surgery consult for coronary revascularization DESCRIPTION OF PROCEDURE The patient arrived to the procedure lab. The risks and benefits of the procedure as well as a full description of our services here and current unavailability of surgical backup were fully explained to the patient and/or their significant other prior to the catheterization. The Timeout was completed, verifying the correct patient and procedure. The patient's procedural site was prepped and draped in the usual fashion. Local anesthetic was given subcutaneously to right radial region with Lidocaine 2%. Using a modified Seldinger technique, arterial access was obtained via the right radial artery, a 6Fr sheath was inserted. Left Coronary Artery selective angiography was performed in multiple views using a 5 Fr. 4.0 [place] catheter. Right Coronary Artery selective angiography was then performed in multiple views using a 5 Fr. 4.0 [place] catheter. Left Ventriculography was performed in BENNETT projection using a 5 Fr. [place] catheter. LV to AO pullback pressures were then recorded.The arterial sheath was pulled and a TR Band was applied for hemostasis. 11cc air inserted. CORONARY ANGIOGRAPHY DOMINANCE: Right Dominant LEFT HEART ASSESSMENT Left Ventricular Ejection Fraction: by LV Gram 45 % Anterior Hypokinesis - Moderate. Inferior Mid Hypokinesis - Moderate LEFT MAIN: Angiographically normal, No significant disease noted LEFT ANTERIOR DESCENDING ARTERY: Anterior descending artery was a medium size vessel previously stented and totally occluded in the midsegment. DIAGONAL 1: Ostial - 99% stenosis with a proximal aneurysmal dilatation and mild diffuse disease CIRCUMFLEX ARTERY: Moderate luminal irregularities up to 50% RIGHT CORONARY ARTERY: MID RCA: Totally occluded with right to left collaterals filling the distal left anterior descending artery COLLATERAL FLOW: Collateral flow from Left to Right Collateral flow from Right to Left COMPLICATIONS No Complications PROCEDURE MEDICATIONS Fentanyl 50 mcg IV Versed 1 mg IV Oxygen: 2 L/min via nasal cannula SUMMARY OF HEMODYNAMIC DATA Time AIR REST ECG 09:13:12 Art 128/63 (79) 10:05:24 AO 88/66 (76) SA 10:11:27 LV 100/11, 16 10:16:20 LV 97/9, 15 10:16:28 LV 97/13, 19 10:17:12 LVp 98/13, 19 10:17:15 Signed By Robert Alexander MD On 01/25/2022 10:35:48 Robert Alexander MD
== END 2022-01-25 12:45 | disposition home or self-care (01) ==
LOC: CLSP 08:50
PROVIDERS: PCP Internal Medicine; Visit Provider Internal Medicine Cardiovascular Disease
DX: I25.118 Atherosclerotic heart disease of native coronary artery with other forms of angina pectoris (principal); E11.9 Type 2 diabetes mellitus without complications; I25.2 Old myocardial infarction; G47.31 Primary central sleep apnea; E78.5 Hyperlipidemia, unspecified; I10 Essential (primary) hypertension; F17.210 Nicotine dependence, cigarettes, uncomplicated; Z86.73 Personal history of transient ischemic attack (TIA), and cerebral infarction without residual deficits; Z95.5 Presence of coronary angioplasty implant and graft; Z79.82 Long term (current) use of aspirin; Z79.899 Other long term (current) drug therapy; Z79.84 Long term (current) use of oral hypoglycemic drugs
CPT/HCPCS: 93458; 99152; 99153; J7030; Q9967; C1769; C1894